=== PATIENT | male | born 1945 | race Caucasian/White ===

== ENCOUNTER 2016-07-01 08:37 | Inpatient (IN) | payer BC, OTHER ==
[2016-06-14 12:56] VITALS: BMI 22.0
--- NOTE | 2016-06-14 13:26 | PAT Medication Instructions ---
Service Date Jun 14, 2016. Current Home Medication List Cod Liver Oil (Cod Liver Oil), 1 CAPSULE PO QAM Gabapentin (Neurontin), 300 MG PO TID Glucosamine-Chondroitin (Osteo Bi-Flex Regular Str), 2 TABLETS PO BID Multiple Vitamins W/ Minerals (Centrum Silver Adult 50+), 1 TABLET PO QAM Nabumetone (Nabumetone), 750 MG PO BID Medication Instructions For Your Scheduled Surgery Nabumetone (Nabumetone), 750 MG PO BID (check with surgeon for instructions) - Hold the following medications starting 06/14/16: Glucosamine-Chondroitin (Osteo Bi-Flex Regular Str), 2 TABLETS PO BID Cod Liver Oil (Cod Liver Oil), 1 CAPSULE PO QAM - Hold the following medications the morning of surgery: Multiple Vitamins W/ Minerals (Centrum Silver Adult 50+), 1 TABLET PO QAM - Take the following medications the morning of surgery with a sip of water: Gabapentin (Neurontin), 300 MG PO TID - Take the following medications as scheduled the night before surgery: Gabapentin (Neurontin), 300 MG PO TID If you have any questions please call us at [phone] (Dariana Ren PA-C) or [phone] or [phone]
--- NOTE | 2016-06-14 13:54 | DIAGNOSTIC IMAGING REPORT ---
CHEST 2 VIEWS ROUTINE CLINICAL HISTORY: PAT preoperative evaluation COMPARISON STUDY: 06/15/2013 FINDINGS: The bones soft tissues and hemidiaphragms are normal. The cardiomediastinal silhouette is normal. The lungs are clear. The pulmonary vasculature is normal. IMPRESSION: Negative chest. Electronically signed by: Lev Scott M.D. 06/14/2016 1:52 PM Dictated Date/Time: 06/14/2016 1:41 PM
[2016-06-14 14:04] LABS: BASO ABS # 0.06 K/uL (0-0.2); COMPLETE YES; EOS % 4.4 %; HEMATOCRIT 39.5 % (42-52); IG% 0.5 %; LYMPH % 24.2 %; LYMPH ABS # 1.48 K/uL (1.2-3.4); MEAN CELL VOLUME 92.1 fL (80-100); MEAN CORPUSCULAR HEMOGLOBIN 31.5 pg (25-34); MEAN CORPUSCULAR HGB CONC 34.2 g/dl (32-36); MEAN PLATELET VOLUME 10.5 fL (7.4-10.4); MONO % 8.3 %; NEUT % 61.6 %; PLATELET COUNT 224 K/uL (130-400); RED BLOOD COUNT 4.29 M/uL (4.7-6.1); WHITE BLOOD COUNT 6.12 K/uL (4.8-10.8)
[2016-06-14 14:13] LABS: MANUAL MICROSCOPIC REQUIRED? NO; REVIEW REQ? NO; URINE APPEARANCE CLEAR (CLEAR); URINE BILIRUBIN NEG (NEG); URINE COLOR YELLOW; URINE NITRITE NEG (NEG); URINE PH 5.5 (4.5-7.5); URINE SPECIFIC GRAVITY 1.017 (1.000-1.030); UROBILINOGEN NEG (NEG)
[2016-06-14 14:34] LABS: BUN/CREATININE RATIO 18.4 (10-20); CALCIUM 9.1 mg/dl (8.5-10.1); CREATININE 0.95 mg/dl (0.60-1.40)
[2016-07-01] VITALS (9 sets, daily range): BP systolic 109–144; BP diastolic 63–82; PULSE 72–88; TEMP 36.4–36.8; O2SAT 98; Ht 175.3 cm; Wt 67.6 kg
[~2016-07-01] VITALS: Ht 175.3 cm; Wt 67.6 kg
[~2016-07-01 08:37] MED LIST: CEFAZOLIN 1000MG/55 ML D5W IV SCH; CODCAP PO; GABA-113 PO; GLUCTAB18 PO; LACTATED RINGER'S 1000ML 1,000 ML IV SCH; MULT-845 PO; NABU750T PO
--- NOTE | 2016-07-01 09:23 | History & Physical Bridge Note ---
H&P Re-Evaluation Bridge Note: I have examined the patient, reviewed the History & Physical and in the interval since the performance of the History & Physical I have noted the following changes of clinical significance: No changes noted
[2016-07-01] MEDS ORDERED: BUPIVACAINE/EPINEPHRINE 0.5% MPF 1:200,000 30 ML VIAL ONE (09:44)
[2016-07-01] MEDS ORDERED: BACITRACIN 50000 UNIT VIAL ONE (09:44)
[2016-07-01] MEDS ORDERED: SODIUM CHLORIDE 0.9% PF 50 ML VIAL ONE (09:44)
[2016-07-01] MEDS ORDERED: SODIUM CHLORIDE 0.9% INJ 10 ML VIAL ONE (09:45)
[2016-07-01] MEDS ORDERED: MIDAZOLAM HCL 1 MG/ML 2ML VIAL ONE (09:45)
[2016-07-01] MEDS ORDERED: HYDROmorphone INJ 2 MG/ML SYR/VIAL ONE (09:46)
[2016-07-01] MEDS ORDERED: FENTANYL CITRATE INJ 50 MCG/1 ML 2 ML VIAL ONE (09:46)
[2016-07-01] MEDS ORDERED: GLYCOPYRROLATE INJ 0.2 MG/ML VIAL ONE (09:47)
[2016-07-01] MEDS ORDERED: NEOSTIGMINE METHYLSULFATE 1 MG/ML 10ML VIAL ONE (09:47)
[2016-07-01] MEDS ORDERED: PROPOFOL IV EMULSION 10 MG/ML 20 ML VIAL IV ONE (09:47)
[2016-07-01] MEDS ORDERED: ROCURONIUM BROMIDE 10 MG/ML 5 ML VIAL ONE ×2 (09:47→10:27)
[2016-07-01] MEDS ORDERED: ONDANSETRON INJ 2 MG/ML 2 ML VIAL ONE ×2 (09:47→13:07)
[2016-07-01] MEDS ORDERED: DEXAMETHASONE SOD INJ 4 MG/ML VIAL ONE (09:47)
[2016-07-01] MEDS ORDERED: LIDOCAINE HCL 2% 2 ML VIAL (20MG/ML) ONE (09:47)
--- NOTE | 2016-07-01 09:47 | History and Physical ---
History & Physical Date & Time of Service: Jul 01, 2016 at 09:42 Chief Complaint: Lumbar Spinal Stenosis Primary Care Physician: Bernardino Flor M.D. History of Present Illness Source: patient Patient presents with back and right leg pain refractory to conservative measures. Presents for surgical procedure. Past Medical/Surgical History Medical Problems: (1) Lumbar stenosis with neurogenic claudication Status: Resolved (2) Mitral valve prolapse Status: Chronic (3) Pneumonia Status: Resolved (4) S/P hernia repair Status: Resolved Family History Cancer Social History Smoking Status: Former Smoker Smokeless Tobacco Use: No Alcohol Use: none Marital Status: Occupational Status: employed Immunizations History of Influenza Vaccine: Unknown History of Tetanus Vaccine?: Unknown History of Pneumococcal: Unknown History of Hepatitis B Vaccine: Unknown Multi-Drug Resistant Organisms History of MDRO: No Allergies Coded Allergies: No Known Drug Allergy (Verified Allergy, Unknown, NKDA, 07/01/16) Home Medications Scheduled Cod Liver Oil (Cod Liver Oil), 1 CAPSULE PO QAM Gabapentin (Neurontin), 300 MG PO TID Glucosamine-Chondroitin (Osteo Bi-Flex Regular Str), 2 TABLETS PO BID Multiple Vitamins W/ Minerals (Centrum Silver Adult 50+), 1 TABLET PO QAM Nabumetone (Nabumetone), 750 MG PO BID Physical Exam Vital Signs Date Time Temp Pulse Resp B/P Pulse Ox O2 Delivery O2 Flow Rate FiO2 07/01/16 09:15 36.4 72 18 144/82 98 Room Air 07/01/16 08:55 36.4 72 18 144/82 98 Room Air General Appearance: WD/WN Head: normocephalic Eyes: normal inspection ENT: normal ENT inspection Neck: supple Respiratory/Chest: chest non-tender Cardiovascular: regular rate, rhythm Abdomen/GI: non tender Back: normal inspection Diagnostics Diagnostic Radiology MRI sever stenosis L3-S1 with a spondylolesthesis L4-5. Impression Assessment and Plan Sever spinal stenosis refractory to conservative measures. Will perform a revision lumbar decompression and instrumented fusion L3-S1. Advanced Directives Existing Living Will: No Existing Power of Sql Application Developer: No
[2016-07-01] MEDS ORDERED: EpHEDrine SULFATE 50MG/5ML SYR ONE (10:52)
[2016-07-01] MEDS ORDERED: HYDROmorphone INJ 1 MG/ML SYR IV PRN ×2 (11:00→12:45)
[2016-07-01] MEDS ORDERED: ATROPINE SULFATE 0.1 MG/ML 5ML SYR IV PRN (11:00)
[2016-07-01] MEDS ORDERED: FENTANYL CITRATE INJ 50 MCG/1 ML 2 ML VIAL IV PRN (11:00)
[2016-07-01] MEDS ORDERED: ONDANSETRON INJ 2 MG/ML 2 ML VIAL IV PRN ×2 (11:00→12:45)
[2016-07-01] MEDS ORDERED: LABETALOL HCL IV 5 MG/ML 20ML IV PRN (11:00)
[2016-07-01] MEDS ORDERED: MEPERIDINE HCL 25 MG/ML CARP IV PRN (11:00)
[2016-07-01] MEDS ORDERED: EpHEDrine SULFATE INJ 50 MG/ML AMP IV PRN (11:00)
[2016-07-01] MEDS ORDERED: FLOSEAL HEMOSTATIC MATRIX 10ML TOP ONE (12:32)
[2016-07-01] MEDS ORDERED: SODIUM CHLORIDE 0.9% 1000ML 1,000 ML IV SCH (12:32)
--- NOTE | 2016-07-01 12:32 | [facility] Post Operative Brief Note ---
Immediate Operative Summary Operative Date Jul 01, 2016. Pre-Operative Diagnosis Spinal stenosis L3-S1, with spondylolesthesis L4-5 Post-Operative Diagnosis Same as preop Procedure(s) Performed L3-S1 Revision Lumbar Decompression/Laminectomy, L3-S1 Pedicle Screw Fixation, Placement of an Interbody Device L4-5, with use of Bone Morphogenetic Protein Application Surgeon Dr. aBh Radiation Safety Officer Surgeon(s) Blanca Cha PA-C Estimated Blood Loss 200 ml Findings stenosis/spondy Specimens None, as per surgeon
[2016-07-01] MEDS ORDERED: ACETAMINOPHEN IV 100 ML IV PRN (12:45)
[2016-07-01] MEDS ORDERED: DO NOT ADMINISTER PNEUMOCOCCAL VACCINE PRN ×2 (12:45)
[2016-07-01] MEDS ORDERED: ACETAMINOPHEN 500 MG TAB PO PRN (12:45)
[2016-07-01] MEDS ORDERED: PROMETHAZINE HCL INJ 12.5 MG in SODIUM CHLORIDE 0.9% 50ML 50 ML IV PRN (12:45)
[2016-07-01] MEDS ORDERED: HYDROmorphone HCL 0.5MG/ML 50 ML CASSETTE IV PRN (12:45)
[2016-07-01] MEDS ORDERED: ALUMINUM/MAGNESIUM SUSP 30 ML UDC PO PRN (12:45)
[2016-07-01] MEDS ORDERED: FAMOTIDINE 20 MG TAB PO PRN (12:45)
[2016-07-01] MEDS ORDERED: DO NOT ADMINISTER FLU VACCINE PRN ×3 (12:45)
[2016-07-01] MEDS ORDERED: hydrOXYzine HCL 25 MG TAB PO PRN (12:45)
[2016-07-01] MEDS ORDERED: METOCLOPRAMIDE HCL INJ 5 MG/ML 2 ML VIAL IV PRN (12:45)
[2016-07-01] MEDS ORDERED: BISACODYL 10 MG SUPP PR PRN (12:45)
[2016-07-01] MEDS ORDERED: NALOXONE HCL 0.4 MG/1 ML VIAL/CARP IV PRN ×2 (12:45)
[2016-07-01] MEDS ORDERED: LORAZEPAM 0.5 MG TAB PO PRN (12:45)
[2016-07-01] MEDS ORDERED: SOD PHOSPHATE/SOD BIPHOSPHATE ENEMA 132 ML BTL PR PRN (12:45)
[2016-07-01] MEDS ORDERED: LORAZEPAM INJ 0.5 MG in SYRINGE 0.75 ML IV PRN (12:45)
[2016-07-01] MEDS ORDERED: MAGNESIUM HYDROXIDE SUSP 30 ML UDC PO PRN (12:45)
[2016-07-01] MEDS ORDERED: HYDROmorphone HCL 0.5MG/ML 50 ML CASSETTE ONE (12:54)
--- NOTE | 2016-07-01 13:31 | OPERATIVE REPORT ---
DATE OF OPERATION: 07/01/2016 PREOPERATIVE DIAGNOSIS: Lumbar spinal stenosis, spondylolisthesis. POSTOPERATIVE DIAGNOSIS: Same. PROCEDURE PERFORMED: 1. Revision decompression, medial facetectomies and foraminotomy L3-4, L4-5, L5-S1. 2. Posterior spinal fusion L3-L4, L4-L5, L5-S1. 3. Placement posterior segmental instrumentation using Medicrea rods and screws L3-4, L4-5, L5-S1. 4. Interbody fusion L4-L5. 5. Placement of PEEK cage 11 x 22 mm at L4-L5. 6. Placement of locally harvested morcellized autograft in posterior gutters. 7. Placement of Infuse collagen sponge combined with Mastergraft in posterior gutters and Amaya bone graft in the interbody space. SURGEON: Dr. Royal Bah. CROSS ENTERPRISE INTEGRATOR: Jayden Cha PA-C. Due to the complex nature of the procedure, the entire surgery was performed with the surgical dental assistant of Jayden Cha PA-C. The grants and contracts assistant, under direct supervision, was involved in the actual performance of all aspects of the surgical procedure including hemostasis, tissue retraction and incision, instrument management, patient positioning, and wound closure. ANESTHESIA: General. DISPOSITION: The patient awakened and taken to PACU in stable condition. HISTORY OF PATIENT'S PROBLEMS: A 71-year-old male who presents with above-mentioned diagnosis. After failing an extensive course of nonoperative care, elected to undergo the above-mentioned procedure. Risks, benefits, pros, cons, and alternatives were outlined in detail preoperatively. PROCEDURE: The patient was met with preoperatively, case discussed and all questions were addressed. At that point the patient was taken back to operative suite and after undergoing successful general intubation by the department of anesthesia was placed in prone position on Fausto table atop Juan Antonio frame. All bony prominences were well padded and the eyes were inspected to ensure there was no external pressure placed upon them. At this point, lumbar spine was prepped and draped in normal sterile fashion. Sharp dissection with the assistance of Bovie cautery performed down to and exposing the remaining lamina and transverse processes of L3, L4, L5 and sacral ala bilaterally. I then performed a complete revision laminectomy at the 3-4, 4-5 levels on the right addressing severe lateral recess and foraminal disease. Pedicle screws then placed in L3, L4, L5 and S1 levels bilaterally with the assistance of fluoroscopy and through a transforaminal approach on the right, a complete discectomy of L4-L5 was performed, endplates curetted to subcortical bleeding bone and an 11 x 22 mm PEEK cage filled with Amaya bone grafting tapped into position. The rods were then compressed, locked into final position bilaterally and transverse processes of L3, L4, L5 and sacral ala burred to subcortical bone. Infuse collagen sponge combined with Mastergraft and locally harvested morselized autograft was placed in the posterior lateral gutters. A 7 flat LEO drain was inserted. Incision was closed with 1-0 Vicryl in the fascia, 2-0 Vicryl subcutaneously, 4-0 Monocryl for final skin closure. Steri-Strips and sterile dressing placed. The patient was awakened and taken to PACU in stable condition. Again, we did note significant scarring along the right lateral recesses and nerve roots at L4-L5. We obtained excellent complete decompression. I attest to the content of the Intraoperative Record and any orders documented therein. Any exceptio ns are noted below.
--- NOTE | 2016-07-01 13:38 | DIAGNOSTIC IMAGING REPORT ---
INTRAOPERATIVE FLUOROSCOPIC IMAGES OF THE LUMBAR SPINE CLINICAL HISTORY: L3-S1 DECOMPRESSION/FUSION/INTERBODY COMPARISON STUDY: Lumbar spine MRI January 21, 2013. Fluoroscopy time: 24 seconds. FINDINGS: 2 fluoroscopic images demonstrate L4-L5 discectomy with interbody spacer placement. There is grade I anterolisthesis of L4 on L5. There is a posterior decompression. Bilateral pedicle screws are noted at the L3, L4, L5 and S1 levels. IMPRESSION: Findings consistent with an L4-L5 discectomy and L3-S1 bilateral pedicle screw fusion Electronically signed by: Layo Mora M.D. 07/01/2016 1:37 PM Dictated Date/Time: 07/01/2016 1:35 PM
--- NOTE | 2016-07-01 14:07 | Anesthesiology Progress Note ---
Anesthesia Post Op Note Date & Time Jul 01, 2016 at 14:06 Vital Signs Pain Intensity: 0 Vital Signs Past 12 Hours Date Time Temp Pulse Resp B/P Pulse Ox O2 Delivery O2 Flow Rate FiO2 07/01/16 14:00 76 18 129/66 99 Mask 4 07/01/16 13:45 78 20 129/67 99 Mask 4 07/01/16 13:35 36.4 80 20 130/65 99 Mask 4 07/01/16 13:25 78 15 137/68 97 Mask 4 07/01/16 13:15 85 15 140/69 99 Mask 10 07/01/16 13:05 90 18 145/80 99 Mask 10 07/01/16 12:56 36.6 83 12 140/77 98 Mask 10 07/01/16 09:15 36.4 72 18 144/82 98 Room Air 07/01/16 08:55 36.4 72 18 144/82 98 Room Air Notes Mental Status: alert / awake / arousable, participated in evaluation Pt Amnestic to Procedure: Yes Nausea / Vomiting: adequately controlled Pain: adequately controlled Airway Patency, RR, SpO2: stable & adequate BP & HR: stable & adequate Hydration State: stable & adequate Anesthetic Complications: no major complications apparent
[2016-07-01] MEDS: GABAPENTIN 300 MG CAP PO SCH ×2 (16:00→20:26)
[2016-07-01] MEDS: LACTATED RINGER'S 1000ML 1,000 ML IV SCH ×2 (17:48→23:42)
[2016-07-01] MEDS: CEFAZOLIN IV 1,000 MG in DEXTROSE 5% 50ML 50 ML IV SCH (17:48)
[2016-07-01] MEDS: DEXAMETHASONE INJ 6 MG in SYRINGE 0 ML IV SCH (17:49)
[2016-07-01] MEDS: DOCUSATE SODIUM/SENNA 50/8.6MG TAB PO SCH (20:27)
[2016-07-02] VITALS (7 sets, daily range): BP systolic 117–136; BP diastolic 58–73; PULSE 75–96; TEMP 36.3–36.9; O2SAT 94–98
[2016-07-02] MEDS: CEFAZOLIN IV 1,000 MG in DEXTROSE 5% 50ML 50 ML IV SCH (01:32)
[2016-07-02] MEDS: DEXAMETHASONE INJ 6 MG in SYRINGE 0 ML IV SCH ×2 (01:32→10:13)
[2016-07-02] MEDS: LACTATED RINGER'S 1000ML 1,000 ML IV SCH ×3 (04:50→18:52)
[2016-07-02] MEDS ORDERED: DC PCA ONE (06:00)
[2016-07-02] MEDS: OXYCODONE HCL IR 5 MG TAB (IMMEDIATE RELEASE) PO PRN ×3 (06:07→18:28)
[2016-07-02 07:21] LABS: BASO % 0.1 %; BASO ABS # 0.01 K/uL (0-0.2); COMPLETE YES; HEMATOCRIT 35.8 % (42-52); IG% 0.4 %; LYMPH % 4.6 %; LYMPH ABS # 0.76 K/uL (1.2-3.4); MEAN CELL VOLUME 92.3 fL (80-100); MEAN CORPUSCULAR HEMOGLOBIN 30.9 pg (25-34); MEAN CORPUSCULAR HGB CONC 33.5 g/dl (32-36); MEAN PLATELET VOLUME 10.9 fL (7.4-10.4); MONO % 5.5 %; NEUT % 89.4 %; PLATELET COUNT 167 K/uL (130-400); RED BLOOD COUNT 3.88 M/uL (4.7-6.1); WHITE BLOOD COUNT 16.56 K/uL (4.8-10.8)
[2016-07-02 07:56] LABS: CALCIUM 8.9 mg/dl (8.5-10.1); CREATININE 0.82 mg/dl (0.60-1.40); POTASSIUM 4.5 mmol/L (3.5-5.1)
[2016-07-02] MEDS: GABAPENTIN 300 MG CAP PO SCH ×3 (09:54→20:48)
--- NOTE | 2016-07-02 10:14 | PROGRESS NOTE ---
DATE: 07/02/2016 DATE: 07/02/2016. SUBJECTIVE: Postop day 1. Back pain is controlled. Leg pain markedly improved. Vital signs stable. T-max 36.9. LEO drained 80 mL. Hematocrit this a.m. is 35.8. OBJECTIVE: On exam the patient is sitting up in bed, has good strength to testing, appears comfortable. ASSESSMENT: Status post revision decompression and fusion. PLAN: At this time, will initiate physical therapy, advance his bowel regimen and anticipate home early next week.
[2016-07-02] MEDS: DOCUSATE SODIUM/SENNA 50/8.6MG TAB PO SCH (22:00)
[2016-07-02] MEDS ORDERED: NURSING VERBAL MED ORDER ONE (23:30)
[2016-07-03] MEDS: POLYETHYLENE (MIRALAX) 17 GM PACK PO SCH ×3 (06:01→18:00)
[2016-07-03] MEDS: OXYCODONE HCL IR 5 MG TAB (IMMEDIATE RELEASE) PO PRN ×2 (06:35→13:23)
[2016-07-03 07:05] VITALS: BP 126/75; PULSE 81; TEMP 36.7; O2SAT 96
[2016-07-03] MEDS: GABAPENTIN 300 MG CAP PO SCH ×3 (08:42→21:03)
[2016-07-03] MEDS ORDERED: RXC5 PO (12:42)
--- NOTE | 2016-07-03 12:43 | Discharge Instructions ---
Discharge Instructions Admission Reason for Admission: Lumbar Spinal Stenosis Discharge Discharge Diagnosis / Problem: stenosis Discharge Goals Goal(s): Improve function Activity Recommendations Activity Limitations: per Instructions/Follow-up section . Instructions / Follow-Up Instructions / Follow-Up ACTIVITY RECOMMENDATIONS: SELF CARE INSTRUCTIONS AFTER THORACIC/LUMBAR FUSIONS 1. You may walk to your tolerance. It is good exercise for your legs and back. Expect some back and intermittent leg aches and pains. 2. You may perform "counter-top" level activities (make a sandwich, renuka with a project, etc.). 3. No bending or lifting of more than 10 pounds or back twisting of any nature (roll like a log when turning in bed). 4. You may ride in a car for 20-30 minutes at a time. No driving until after your first visit with your doctor. 5. Frequent changes of position and restricting sitting to 30 minutes at a time will help limit the amount of back spasms and stiffness you may experience. 6. You may discontinue the use of ambulatory aids (cane, crutches, etc.) once your strength and confidence allow. 7. You may french binder the shower and let water strike your incision when you arrive home at least once daily. Do not take a tub bath, sit in a hot tub or go into a swimming pool until after your first recheck in the office. SPECIAL CARE INSTRUCTIONS: VERY IMPORTANT TO READ AND REVIEW A. Your surgical incision has been closed with a cosmetic suture under the skin that will dissolve in about 6 weeks. In 14 days, you can use a pair of clean scissors and cut the suture that is left outside of the skin at the ends of your incision. 1. The small skin tapes can be removed 7 days after surgery if they have not fallen off by that point. 2. You may keep the wound open to air as much as possible to promote healing after post-op day number 5 unless told otherwise by your doctor. 3. If you think the wound looks like it is becoming infected (redness or worsening drainage) and/or you are experiencing fever, chill or worsening back pain and muscle spasms, contact the office so that we may evaluate you as soon as possible. B. Complications are uncommon, but please contact us if you have any signs or symptoms of: 1. wound infection (fever higher than 102.5 degrees F, redness, separation of wound, drainage, or increasing pain from the incision) 2. blood clots in legs (pain, swelling, redness and warmth in legs) 3. urinary tract infection (fever higher than 102.5 degrees F, burning upon urination or increased frequency of urination) 4. nerve problems (inability to walk on your toes or heels, numbness, loss of bowel or bladder control) 5. any other symptoms that concern you C. Please call the office at if you have any concerns or questions about your operation or recovery. D. No smoking! Smoking drastically decreases the chance of a solid fusion. E. Do not take any anti-inflammatory medications (Indocin, Advil, Motrin, Aspirin, Naprosyn, etc.) as these may inhibit the chance of a solid fusion. Tylenol is okay to take for pain. MANAGING PAIN AFTER SPINAL SURGERY 1. Narcotic medication is intended for short-term use and will be provided for surgical pain. Surgical pain usually lasts for a period of 4-6 weeks. Narcotic medication includes Percocet, Vicodin, Darvocet, Tylenol #3 or Lortab. 2. Longer-term pain is more appropriately treated with non-narcotic medication such as Tylenol ES. 3. Muscle spasm is not appropriately treated with narcotics. Muscle relaxers such as Soma, Flexeril or Skelaxin can be used along with Tylenol ES. 4. Remember that we all live with some "aches and pains". This is not unusual or uncommon after an injury or as we get older. a. Back pain is expected and may include muscle spasms for 4 to 6 weeks after surgery. The pain should gradually improve. If the pain worsens for no apparent reason, please contact the office. b. Intermittent leg pain may also be experienced and should not be concerned about unless it worsens for no apparent reason. If so, please contact the office. 5. We will provide appropriate medication within the normal guidelines of their prescribed use. We will also be very cautious and aware of potential abuse and extended duration of patients' medication needs. a. Pain medications are for your comfort and to assist with sleep and rest so that the tissue can heal. They are not provided in order to return to normal activity and should not be used through the day. To do so or worsening pain at night can result from ongoing tissue damage and development of tolerance to the prescribed medicine. 6. Please allow 2-3 days to process refills. Prescriptions will not be mailed but must be picked up at the office. FOLLOW UP VISIT: Keep your scheduled follow-up appointment. Any questions, please call the office at . Current Hospital Diet Patient's current hospital diet: Regular Diet Discharge Diet Recommended Diet: Regular Diet Procedures Procedures Performed: L3-S1 Revision Lumbar Decompression/Laminectomy, L3-S1 Pedicle Screw Fixation, Placement of an Interbody Device L4-5, with use of Bone Morphogenetic Protein Application and Amaya Pending Studies Studies pending at discharge: no Medical Emergencies . Who to Call and When: Medical Emergencies: If at any time you feel your situation is an emergency, please call 911 immediately. . Non-Emergent Contact Non-Emergency issues call your: Primary Care Provider . "Provider Documentation" section prepared by Royal Bah. VTE Core Measure Inpt VTE Proph given/why not?: Anjana Millan, ERIC's
--- NOTE | 2016-07-03 13:44 | PROGRESS NOTE ---
DATE: 07/03/2016 Subjective: Postop day #2. Back pain is controlled. Leg pain markedly improved. Vital signs stable. T-max 36.7. LEO drained 50 mL. Hematocrit this a.m. is 35.8. OBJECTIVE: On exam, the patient is sitting at bedside. Has good strength to testing. Appears comfortable. ASSESSMENT: Status post revision decompression and fusion. PLAN: At this time, continue physical therapy, advance his bowel regimen and anticipate possible home tomorrow with home health. The patient understands and agrees.
[2016-07-03 16:20] VITALS: BP 138/74; PULSE 94; TEMP 36.4; O2SAT 95
[2016-07-03] MEDS: DOCUSATE SODIUM/SENNA 50/8.6MG TAB PO SCH (21:03)
[2016-07-03] MEDS ORDERED: NURSING VERBAL MED ORDER ONE (23:15)
[2016-07-03 23:25] VITALS: BP 112/58; PULSE 97; TEMP 38.1; O2SAT 94
[2016-07-03 23:29] VITALS: TEMP 37
[2016-07-04 07:06] VITALS: BP 108/61; PULSE 88; TEMP 38; O2SAT 94
[2016-07-04] MEDS: GABAPENTIN 300 MG CAP PO SCH ×2 (08:11→13:40)
[2016-07-04] MEDS: OXYCODONE HCL IR 5 MG TAB (IMMEDIATE RELEASE) PO PRN (08:13)
--- NOTE | 2016-07-04 08:16 | Anesthesiology Progress Note ---
Anesthesia Post Op Note Date & Time Jul 04, 2016 at 08:16 Vital Signs Pain Intensity: 7.0 Vital Signs Past 12 Hours Date Time Temp Pulse Resp B/P Pulse Ox O2 Delivery O2 Flow Rate FiO2 07/04/16 07:06 38.0 88 17 108/61 94 Room Air 07/03/16 23:34 Room Air 07/03/16 23:29 37.0 07/03/16 23:25 38.1 97 16 112/58 94 Room Air Notes Mental Status: alert / awake / arousable, participated in evaluation Pt Amnestic to Procedure: Yes Nausea / Vomiting: adequately controlled Pain: adequately controlled Airway Patency, RR, SpO2: stable & adequate BP & HR: stable & adequate Hydration State: stable & adequate Anesthetic Complications: no major complications apparent
--- NOTE | 2016-07-04 11:19 | DISCHARGE SUMMARY ---
PRINCIPAL DIAGNOSIS: Spinal stenosis. HOSPITAL COURSE FOLLOWS: On July 01, the patient underwent lumbar decompression and fusion, tolerated this well and taken to the orthopedic floor postoperatively. Postop day #1, he was up and ambulatory, progressed to postop day #2. Pain well controlled, symptoms improved and subsequently on July 04, discharged home with home health. Discharge orders and instructions found on the chart for further review.
[2016-07-04 11:31] VITALS: BP 108/61; PULSE 88; TEMP 38; O2SAT 94
[2016-07-04 13:50] VITALS: TEMP 37.2
[2016-12-15] MEDS ORDERED: OMEG10007 PO (06:56)
[2016-12-15] MEDS ORDERED: NABU500T3 PO (06:56)
[2016-12-15] MEDS ORDERED: CHOL1000 PO (06:56)
== END 2016-07-04 14:09 | disposition home health service (06) | DRG 460 ==
LOC: ENRESERV → ENRESERVTM → ENRESERVDT → C.ACU 08:37 → C.MSN 09:00
PROVIDERS: ADMIT Orthopaedic Surgery Orthopaedic Surgery of the Spine; ATTEND Orthopaedic Surgery Orthopaedic Surgery of the Spine
PROC: 3E0U0GB Introduction of Recombinant Bone Morphogenetic Protein into Joints, Open Approach (ICD-10-PCS; principal; 2016-07-01 10:05)
PROC: 0SG3071 Fusion of Lumbosacral Joint with Autologous Tissue Substitute, Posterior Approach, Posterior Column, Open Approach (ICD-10-PCS; principal; 2016-07-01 10:05)
PROC: 0ST20ZZ Resection of Lumbar Vertebral Disc, Open Approach (ICD-10-PCS; principal; 2016-07-01 10:05)
PROC: 0SG00AJ Fusion of Lumbar Vertebral Joint with Interbody Fusion Device, Posterior Approach, Anterior Column, Open Approach (ICD-10-PCS; principal; 2016-07-01 10:05)
PROC: 0SG1071 Fusion of 2 or more Lumbar Vertebral Joints with Autologous Tissue Substitute, Posterior Approach, Posterior Column, Open Approach (ICD-10-PCS; principal; 2016-07-01 10:05)
DX: M48.06 Spinal stenosis, lumbar region (principal); M43.16 Spondylolisthesis, lumbar region; G62.9 Polyneuropathy, unspecified; N40.0 Benign prostatic hyperplasia without lower urinary tract symptoms; I34.1 Nonrheumatic mitral (valve) prolapse; I34.0 Nonrheumatic mitral (valve) insufficiency; Z87.891 Personal history of nicotine dependence; Z79.899 Other long term (current) drug therapy

== ENCOUNTER → 2016-11-28 | Outpatient (CLI) | payer BC ==
[~2016-11-28] MED LIST changes: +AMIO200T4 PO; +APIX1TAB3 PO; +ASPI81TA28 PO; -CEFAZOLIN 1000MG/55 ML D5W IV SCH; +CHOL1000 PO; +DILT120C67 PO; +DOCU100C31 PO; -LACTATED RINGER'S 1000ML 1,000 ML IV SCH; +NABU500T3 PO; +OMEG10007 PO; +OXYC-609 PO; +RXC5 PO
[2016-11-28 17:20] LABS: INR 1.1 (0.9-1.1); PARTIAL THROMBOPLASTIN RATIO 1.1; PROTHROMBIN TIME (PATIENT) 11.6 SECONDS (9.0-12.0)
[2016-11-28 17:22] LABS: BASO % 0.4 %; BASO ABS # 0.03 K/uL (0-0.2); COMPLETE YES; EOS % 2.8 %; HEMATOCRIT 40.2 % (42-52); IG% 0.3 %; LYMPH % 17.3 %; LYMPH ABS # 1.32 K/uL (1.2-3.4); MEAN CELL VOLUME 91.4 fL (80-100); MEAN CORPUSCULAR HGB CONC 32.8 g/dl (32-36); MEAN PLATELET VOLUME 10.5 fL (7.4-10.4); MONO % 12.2 %; PLATELET COUNT 181 K/uL (130-400); WHITE BLOOD COUNT 7.62 K/uL (4.8-10.8)
[2016-11-28 17:49] LABS: BLOOD UREA NITROGEN 22 mg/dl (7-18); BUN/CREATININE RATIO 19.7 (10-20); CALCIUM 9.5 mg/dl (8.5-10.1); CARBON DIOXIDE 28 mmol/L (21-32); CHLORIDE 105 mmol/L (98-107); GLUCOSE 149 mg/dl (70-99); POTASSIUM 3.6 mmol/L (3.5-5.1); SODIUM 139 mmol/L (136-145)
== END | disposition home or self-care (01) ==
LOC: C.LAB 16:46
PROVIDERS: ATTEND Physician Assistant Medical
DX: I34.0 Nonrheumatic mitral (valve) insufficiency (principal); I34.1 Nonrheumatic mitral (valve) prolapse; I51.7 Cardiomegaly

== ENCOUNTER → 2016-12-15 | Day surgery (SDC) | payer BC ==
[~2016-12-15] VITALS: Ht 175.3 cm; Wt 68.1 kg
[~2016-12-15] MED LIST changes: +FENTANYL CITRATE INJ 50 MCG/1 ML 2 ML VIAL ONE; +HEPARIN SOD (PORCINE) 1000 UNIT/ML 10 ML VIAL ONE; +MIDAZOLAM HCL 1 MG/ML 2ML VIAL ONE; +NITROGLYCERIN/D5W 100MCG/ML 20ML SYR ONE; +NiCARDipine HCL INJ 2.5 MG/ML 10 ML AMP ONE
[2016-12-15 07:14] VITALS: Ht 175.3 cm; Wt 68.1 kg
[2016-12-15 07:15] VITALS: BP 144/70; PULSE 65; TEMP 36.4; O2SAT 98
--- NOTE | 2016-12-15 08:29 | Procedure Note ---
Pre-Mod Sedation Assessment General Date of Moderate Sedation: Dec 15, 2016. Vital Signs: Vital Signs Past 12 Hours Date Time Temp Pulse Resp B/P (MAP) Pulse Ox O2 Delivery O2 Flow Rate FiO2 12/15/16 07:15 36.4 65 16 144/70 98 Room Air Review Cardiovascular: regular rate, rhythm, no edema, + systolic murmur Abdomen: normal bowel sounds, non tender Lungs: chest non-tender, lungs clear Airway Class: III Pre-Sedation Airway Assessment Oral Cavity: WNL Able to Visualize Vocal Cords: No Short Thick Neck: No Hx of Sleep Apnea: No Smoking Status: Former Smoker Mallampati Classification: Class III ASA Classification: Class III Procedure Planning Contraindications-for Mod Sed: None Yes Notes The planned sedation has been discussed with the patient and consent obtained. I have identified the patient, determined the appropriateness of sedation and have assessed the patient immediately prior to the procedure. All medicine(s) and interventions are by my order.
--- NOTE | 2016-12-15 09:12 | Procedure Note ---
Post-Mod Sedation Assessment General Date of Moderate Sedation Dec 15, 2016. Vital Signs: Vital Signs Past 12 Hours Date Time Temp Pulse Resp B/P (MAP) Pulse Ox O2 Delivery O2 Flow Rate FiO2 12/15/16 07:15 36.4 65 16 144/70 98 Room Air Review - Discharge Criteria Vital Signs Stable: Yes Alert/Oriented/Conversant: Yes Returned to Baseline Mental St: Yes Nausea Absent/Minimal: Yes Pain/Discomfort/Absent/Minimal: Yes Normal/Baseline Respirations: Yes Active Bleeding?: No Pt Received D/C Instructions: N/A Prescriptions Given: None Specific Proced. D/C Criteria Distal Pulses Present (Cardiac: Yes Groin site assessed-Card Cath: N/A Voided Prior To Discharge: N/A Discharged Patients Adult Escort/Transportation: Yes
--- NOTE | 2016-12-15 09:25 | Discharge Instructions ---
Discharge Instructions Procedure Procedure Date: Dec 15, 2016. Reason for Visit: Mitral valve Prolapse *Dr Castorena Doing*. Discharge Discharge Date: Dec 15, 2016. Discharge Diagnosis: Mitral Regurgitation Last Recorded Wt (Kilograms): 68.1 Anesthesia Post Anesthesia Instructions: If you have had General Anesthesia or IV Sedation: * Do not drive today. * Resume driving when surgeon permits. * Do not make important decisions or sign legal documents today. * Call surgeon for: 1. Temperature elevations greater than 101 degrees F. 2. Uncontrollable pain. 3. Excessive bleeding. 4. Persistent nausea and vomiting. 5. Medication intolerance (nausea, vomiting or rash). * For nausea and vomiting use only clear liquids such as: tea, soda, bouillon until nausea subsides, then gradually increase diet as tolerated. * If you have any concerns or questions, call your surgeon's office. If physician is unavailable and it is an emergency, call 911 or go to the nearest emergency room. Instructions Activity Recommendations: limitations as noted below Recommended Home Diet: resume previous diet Allergies: Coded Allergies: No Known Drug Allergy (Verified Allergy, Unknown, NKDA, 07/01/16) Follow Up Additional Instructions: ACTIVITY RECOMMENDATIONS: It is common to feel weak and fatigue for a few days. * Do not drive or operate any motorized equipment for the next 2 days. * Limit stair usage (2 or 3 trips a day only) for the next 2 days. * Do not lift anything heavier than 10 pounds for the next three days. * Do not engage in vigorous exercise or any sports for the next five days. * You may shower the day after your procedure, but do not immerse the area for three days. Cleanse the site gently with soap and water. SPECIAL CARE INSTRUCTIONS: * You may replace the pressure dressing or band-aid the morning after the procedure. * After your procedure, it is normal to have a small bruise or small lump at the site. Examine your site daily for any change in the bruise or lump, redness, swelling, drainage or numbness. Notify your doctor if any change. BLEEDING: * If there is a small amount of bleeding at the site, lie down and apply firm pressure with a clean cloth for ten minutes. When the bleeding stops, lie quietly keeping the procedure limb straight for six hours. Notify your doctor as soon as possible. * If the bleeding does not stop after ten minutes or if there is a large amount of bleeding or spurting, call 911 immediately. Continue to lie down and hold firm pressure until help arrives. SKIN IRRITATION: * You may experience some redness and/or swelling in the area where radiation was administered. If any skin irritation occurs, please contact your family physician. FOLLOW UP VISIT: Keep any scheduled doctor appointments. Follow-up with: [facility] Recommendations: Call your doctor if: * Temperature above 101 degrees * Pain not relieved by pain medicine ordered * There is increased drainage or redness from any incision * You have any unanswered questions or concerns. Your Doctors Instructions noted above were prepared by provider Sonido Castorena. Patient Signature Section: Patient Instructions Signature Page Carlos Lord Patient (or Guardian) Signature/Date: I have read and understand the instructions given to me by my caregivers. Caregiver/RN/Doctor Signature/Date: The above-named patient and/or guardian has received patient instructions on this date. + Original Patient Signature Page (only) stays with chart. Please make copy for patient.
--- NOTE | 2016-12-15 09:31 | Cardiac Catheterization ---
Procedure Note Procedure Date Dec 15, 2016. Pre-Procedure Diagnosis Valvular Disease AUC Score 7 Post-Procedure Diagnosis Normal Coronary Arteries, Normal Intracardiac Pressures Procedure(s) Performed Coronary Angiography, Left Heart Cath, Right Heart Cath Locksmith Raffaele Ash Kier Boiler(s) Sally Estimated Blood Loss 15 Medication(s) Fentanyl, Heparin, Nitroglycerin, Versed, Lidocaine 1% Summary of Findings Indication: Preoperative evaluation prior to MV repair for Severe MR Access: 5Fr Right Radial Artery; 6Fr Slender Right antecubital vein Catheters: [place], JR4, 6Fr [place] Findings: LM - Angiographically normal LAD - Angiographically normal Circumflex - Angiographically normal RCA - Dominant, large vessel, angiographically normal RA 3 RV 35/7 PA 32/5 (18) PCW 10; V wave 20 LVEDP 10 PaSat 64 AoSat 98 Josh CO/CI 3.7/2.0 Thermo CO/CI 4.4/2.4 Arterial Closure: TR Band Summary: 1. Normal coronary arteries 2. Normal intracardiac filling pressure. Normal pulmonary artery pressures. Preserved cardiac output. Recommendations: Follow-up with [facility] Cardiac surgery for mitral valve repair Hemodynamics Rest Ao: 108/55/77 Final Ao: 107/43/73 LV: 112/10 Recommendations valve replacement Specimens None Radiation Exposure (mGy) 656 Contrast (mls) 45 Fluids (cc crystalloids) 98 Drains None Anesthesia Moderate Procedural Complication(s) None Disposition Recovery Room / PACU ACC Data Cardiac Status Clinical evaluation leading to the procedure CAD Presntation: Sx unlikely to be ischemic Anginal Classification: No symptoms Heart Failure: Yes, NYHA Class: CCS II Cardiogenic Shock w/in 24Hrs: No Imaging studies past 6 months: Yes Stress studies past 6 months: No Stress Echocardiogram: No Stress Testing w/SPECT MPI: No Cardiac CTA: No Coronary Anatomy Dominant: Right Left Main (% Stenosis): Normal LAD (% Stenosis): Normal Circumflex (% Stenosis): Normal RCA (% Stenosis): Normal Diagnostic Physician's Name: Rush Castorena MD Status: Elective Closure Device Percutaneous Entry Location: Radial Closure Device: Radial Band Recommendations: valve replacement Intraprocedure Events Significant Dissection: No Perforation: No
[2016-12-15 11:45] VITALS: BP 121/63; PULSE 63; O2SAT 95
[2016-12-15 11:56] LABS: ISTAT ARTERIAL BLOOD GAS HCO3 26 meq/L (19-24); ISTAT ARTERIAL BLOOD GAS PCO2 34 mmHg (35-46); ISTAT ARTERIAL BLOOD GAS PO2 100 mmHg (80-95); ISTAT ARTERIAL BLOOD GAS pH 7.49 (7.35-7.45); ISTAT CARBON DIOXIDE 26 mEq/l (24-31)
[2016-12-15 11:57] LABS: ISTAT ARTERIAL BLOOD GAS HCO3 28 meq/L (19-24); ISTAT ARTERIAL BLOOD GAS PCO2 43 mmHg (35-46); ISTAT ARTERIAL BLOOD GAS PO2 33 mmHg (80-95); ISTAT ARTERIAL BLOOD GAS pH 7.42 (7.35-7.45); ISTAT CARBON DIOXIDE 29 mEq/l (24-31)
== END | disposition home or self-care (01) ==
LOC: C.CATH 06:34
PROVIDERS: ATTEND Internal Medicine Interventional Cardiology
DX: I34.1 Nonrheumatic mitral (valve) prolapse (principal); I34.0 Nonrheumatic mitral (valve) insufficiency; I51.7 Cardiomegaly; M17.10 Unilateral primary osteoarthritis, unspecified knee; M19.90 Unspecified osteoarthritis, unspecified site; Z87.81 Personal history of (healed) traumatic fracture; Z80.52 Family history of malignant neoplasm of bladder; Z87.891 Personal history of nicotine dependence

== ENCOUNTER → 2016-12-28 | Outpatient (CLI) | payer BC ==
[2016-12-28] VITALS (8 sets, daily range): BP systolic 110–140; BP diastolic 52–69; PULSE 55–74; TEMP 36.8; O2SAT 93–99; Ht 175.3 cm; Wt 66.0 kg
[~2016-12-28] VITALS: Ht 175.3 cm; Wt 66.0 kg
[~2016-12-28] MED LIST changes: -CODCAP PO; -HEPARIN SOD (PORCINE) 1000 UNIT/ML 10 ML VIAL ONE; -NITROGLYCERIN/D5W 100MCG/ML 20ML SYR ONE; -NiCARDipine HCL INJ 2.5 MG/ML 10 ML AMP ONE
--- NOTE | 2016-12-28 07:36 | Procedure Note ---
Pre-Mod Sedation Assessment General Date of Moderate Sedation: Dec 28, 2016. Review Cardiovascular: regular rate, rhythm, no edema Abdomen: normal bowel sounds, non tender Lungs: chest non-tender, lungs clear Airway Class: II Pre-Sedation Airway Assessment Oral Cavity: WNL Able to Visualize Vocal Cords: No Short Thick Neck: No Hx of Sleep Apnea: No Smoking Status: Former Smoker Mallampati Classification: Class II ASA Classification: Class II Procedure Planning Contraindications-for Mod Sed: None Yes Notes The planned sedation has been discussed with the patient and consent obtained. I have identified the patient, determined the appropriateness of sedation and have assessed the patient immediately prior to the procedure. All medicine(s) and interventions are by my order.
--- NOTE | 2016-12-28 08:36 | Procedure Note ---
Post-Mod Sedation Assessment General Date of Moderate Sedation Dec 28, 2016. Review - Discharge Criteria Vital Signs Stable: Yes Alert/Oriented/Conversant: Yes Returned to Baseline Mental St: Yes Nausea Absent/Minimal: Yes Pain/Discomfort/Absent/Minimal: Yes Normal/Baseline Respirations: Yes Active Bleeding?: No Pt Received D/C Instructions: N/A Prescriptions Given: None Specific Proced. D/C Criteria Distal Pulses Present (Cardiac: Yes Groin site assessed-Card Cath: N/A Voided Prior To Discharge: N/A Discharged Patients Adult Escort/Transportation: Yes
--- NOTE | 2016-12-28 08:40 | Discharge Instructions ---
Discharge Instructions Procedure Procedure Date: Dec 28, 2016. Reason for Visit: Mitral Valve Prolapse...Castorena To Do. Discharge Discharge Date: Dec 28, 2016. Discharge Diagnosis: Mitral regurgitation Last Recorded Wt (Kilograms): 66 Anesthesia Post Anesthesia Instructions: If you have had General Anesthesia or IV Sedation: * Do not drive today. * Can resume driving tomorrow. * Do not make important decisions or sign legal documents today. * Call surgeon for: 1. Temperature elevations greater than 101 degrees F. 2. Uncontrollable pain. 3. Excessive bleeding. 4. Persistent nausea and vomiting. 5. Medication intolerance (nausea, vomiting or rash). * For nausea and vomiting use only clear liquids such as: tea, soda, bouillon until nausea subsides, then gradually increase diet as tolerated. * If you have any concerns or questions, call your surgeon's office. If physician is unavailable and it is an emergency, call 911 or go to the nearest emergency room. Instructions Activity Recommendations: resume regular activity Recommended Home Diet: resume previous diet Allergies: Coded Allergies: No Known Drug Allergy (Verified Allergy, Unknown, NKDA, 07/01/16) Follow Up Follow-up with: [facility] cardiac surgery as scheduled. Jennifer Abraham Recommendations: Call your doctor if: * Temperature above 101 degrees * Pain not relieved by pain medicine ordered * There is increased drainage or redness from any incision * You have any unanswered questions or concerns. Your Doctors Instructions noted above were prepared by provider Sonido Castorena. Patient Signature Section: Patient Instructions Signature Page Carlos Lord Patient (or Guardian) Signature/Date: I have read and understand the instructions given to me by my caregivers. Caregiver/RN/Doctor Signature/Date: The above-named patient and/or guardian has received patient instructions on this date. + Original Patient Signature Page (only) stays with chart. Please make copy for patient.
--- NOTE | 2016-12-29 19:40 | TEE ---
*NOTICE TO RECEIVING [employer] This information is strictly Confidential and protected under [place] law. [place] law prohibits you from making any further disclosure of this information unless further disclosure is expressly permitted by the written consent of the person to whom it pertains or is authorized by law. A general authorization for the release of medical or other information is not sufficient for this purpose. Hospital accepts no responsibility if the information is made available to any other person, INCLUDING THE PATIENT. Interpretation Summary * Conclusions -- * 1. Normal LV size and function. LVEF 60-65%. No regional wall motion abnormalities. * 2. Normal RV size and function. * 3. Severe mitral valve prolapse/partial flail leaflet (P1/P2 segment). * 4. Severe eccentric mitral regurgitation with systolic flow reversal in right lower pulmonary vein. * 5. No LA appendage thrombus. * 6. No significant aortic pathology. Procedure Details * PROBE #3 was adminstered for procedure. PROBE IN: 0805 PROBE OUT: 0827 * The study was performed in Cardiopulmonary Department. * Time out was conducted by the physician, nurse, and library circulation technician with positive identification of patient and procedure. * Informed consent for Transesophageal Echocardiogram was obtained prior to the procedure. * An intravenous line was placed. A topical anesthetic agent was used for oropharangeal anesthesia. A bite block was inserted. * The patient's vital signs, including blood pressure, heart rate, pulse oximetry and cardiac rhythm were monitored throughout the procedure . * Fentanyl 150 mcg was administered for procedural sedation. * Midazolam 3 mg administered for sedation. * The posterior oropharynx was anesthetized using a topical anesthetic spray. A bite guard was inserted. * The usual views were obtained; basal, mid-esophageal, transgastric and aortic views. * The patient tolerated the procedure well without evidence of orophangeal or esophageal trauma. * A 2D transesophageal echocardiogram with spectral and color flow Doppler was performed. * A 2D transesophageal echocardiogram with Doppler and color flow Doppler was performed. Left Ventricle * The left ventricle is grossly normal size. * There is normal left ventricular wall thickness. * Ejection Fraction = 60-65%. * No regional wall motion abnormalities noted. Right Ventricle * The right ventricular systolic function is normal. Atria * No thrombus is detected in the left atrial appendage. * The right atrium is mildly dilated. * No ASD detected; PFO is not assessed. Mitral Valve * Flail or severe prolapse of the mitral posterior leaflet. * The mitral regurgitant jet is eccentrically directed. * There is severe mitral regurgitation. * Apparent flail of P1/P2 segments. Systolic flow reversal in right lower pulmonary vein. Tricuspid Valve * The tricuspid valve is not well visualized, but is grossly normal. * There is no tricuspid stenosis. * There is trace tricuspid regurgitation. Aortic Valve * The aortic valve is normal in structure and function. * The aortic valve is trileaflet. * No hemodynamically significant valvular aortic stenosis. * There is no significant aortic regurgitation. Pulmonic Valve * The pulmonic valve is not well seen, but is grossly normal. * There is no pulmonic valvular stenosis. * There is no significant pulmonary regurgitation. Great Vessels * The aortic root and proximal ascending aorta are normal sized. * No obvious dissection could be visualized. Pericardium * There is no pericardial effusion. Right Ventricle * The right ventricular wall motion is normal.
== END | disposition home or self-care (01) ==
LOC: C.CPL 07:01
PROVIDERS: ATTEND Internal Medicine Interventional Cardiology
DX: I34.0 Nonrheumatic mitral (valve) insufficiency (principal); I34.1 Nonrheumatic mitral (valve) prolapse

== ENCOUNTER → 2017-01-31 | Outpatient (CLI) | payer BC ==
[~2017-01-31] MED LIST changes: -CHOL1000 PO; -FENTANYL CITRATE INJ 50 MCG/1 ML 2 ML VIAL ONE; -MIDAZOLAM HCL 1 MG/ML 2ML VIAL ONE; -NABU500T3 PO; -RXC5 PO
--- NOTE | 2017-01-31 13:03 | DIAGNOSTIC IMAGING REPORT ---
RIGHT FOOT MIN 3 VIEWS ROUTINE CLINICAL HISTORY: 72 years-old Male presenting with RT FOOT PAIN Right. TECHNIQUE: Frontal, oblique, and lateral views of the right foot were obtained. COMPARISON: None. FINDINGS: Accessory navicular noted. Minimal degenerative change suggested at the first metatarsophalangeal joint. No soft tissue calcification. No erosions. Bone spur noted at the inferior calcaneus. No acute fracture or malalignment. Regional soft tissues within normal limits. Atherosclerosis. IMPRESSION: No acute osseous injury. Minimal degenerative changes at the first MTP suggested. Enthesophyte at the origin of the plantar fascia. Electronically signed by: Collin Morris M.D. 01/31/2017 1:02 PM Dictated Date/Time: 01/31/2017 1:01 PM
== END | disposition home or self-care (01) ==
LOC: C.RAD1850 12:24
PROVIDERS: ATTEND Family Medicine
DX: M79.671 Pain in right foot (principal)

== ENCOUNTER 2017-02-16 20:51 | Emergency (ER) | payer BC ==
[~2017-02-16] VITALS: Ht 175.3 cm; Wt 67.9 kg
[~2017-02-16 20:51] MED LIST changes: -AMIO200T4 PO; -APIX1TAB3 PO; -ASPI81TA28 PO; -DILT120C67 PO; -DOCU100C31 PO; -OXYC-609 PO
[2017-02-16 20:54] VITALS: TEMP 37.2; Ht 175.3 cm; Wt 67.9 kg
[2017-02-16] MEDS ORDERED: OXYC-609 PO (21:37)
[2017-02-16] MEDS ORDERED: APIX1TAB3 PO (21:37)
[2017-02-16] MEDS ORDERED: DOCU100C31 PO (21:37)
[2017-02-16] MEDS ORDERED: DILT120C67 PO (21:37)
[2017-02-16] MEDS ORDERED: AMIO200T4 PO (21:37)
[2017-02-16] MEDS ORDERED: ASPI81TA28 PO (21:37)
--- NOTE | 2017-02-16 22:12 | EMERGENCY ROOM VISIT NOTE ---
History Report prepared by Deangelo: Skye Skaggs Under the Supervision of: Dr. Naida Hobbs D.O. First contact with patient: 21:39 Chief Complaint: RESPIRATORY PROBLEMS Stated Complaint: SHORTNESS OF BREATH History of Present Illness The patient is a 72 year old male who presents to the Emergency Room with complaints of shortness of breath beginning this afternoon at 1600. The patient reports that he went to the chiropractor this morning, and that he began to get short of breath this afternoon. He states by the time they arrived here the symptoms resolved. He states that 5 weeks ago he had a mitral valve put in, and that this shortness of breath feels similar to how he felt when he had his surgery. The patient also reports having a productive cough for the last 5 weeks. He reports having the chills, but denies having fevers and urinary symptoms. He states that he has recently had shaking in his hands since the surgery. Per his , the patient has been fatigued and has had a loss of appetite. He states that 2 weeks ago he had an ultrasound done for a swollen right foot and he was unable to ambulate. He reports that this pain is gone now. The patient states that he does not drink enough water and that he is not well hydrated. He reports that he takes Eliquis twice a day, 81 mg of aspirin, and amiodarone. Denies any recent change in activity. States he feels as though he is slowly getting better and states he has no trouble breathing getting around every day. Source of History: patient, spouse/significant other () Onset: this afternoon at 1600 Position: other (global) Quality: other (shortness of breath ) Associated Symptoms: + chills, + cough, + fatigue, + weakness (shaky hands) , No fevers, No urinary symptoms Review of Systems See HPI for pertinent positives & negatives. A total of 10 systems reviewed and were otherwise negative. Past Medical & Surgical Medical Problems: (1) Lower abdominal pain (2) Lumbar stenosis with neurogenic claudication (3) Mitral valve prolapse (4) Pneumonia (5) S/P hernia repair Family History Cancer Social History Smoking Status: Former Smoker Alcohol Use: none Marital Status: Housing Status: lives with significant other Occupation Status: employed Current/Historical Medications Scheduled Amiodarone Hcl (Cordarone), 200 MG PO DAILY Apixaban (Eliquis), 5 MG PO BID Aspirin (Aspirin Ec), 81 MG PO DAILY Diltiazem Hcl Extended Release (Diltiazem Hcl Er), 120 MG PO DAILY Docusate Sodium (Docusate Sodium), 100 MG PO BID Gabapentin (Neurontin), 300 MG PO BID Oxycodone HCl (Oxycodone HCl), 5 MG PO QAM Scheduled PRN Glucosamine-Chondroitin (Osteo Bi-Flex Regular Str), 2 TABLETS PO BID PRN for Joint Pain Miscellaneous Medications Nabumetone (Nabumetone), 750 MG PO Allergies Coded Allergies: No Known Drug Allergy (Verified Allergy, Unknown, NKDA, 07/01/16) Physical Exam Vital Signs Date Time Temp Pulse Resp B/P (MAP) Pulse Ox O2 Delivery O2 Flow Rate FiO2 02/17/17 01:10 74 21 101/61 95 02/17/17 00:01 108/64 02/17/17 00:00 76 21 91 02/16/17 23:43 95 Room Air 02/16/17 23:31 132/73 02/16/17 23:30 77 19 95 02/16/17 23:08 76 02/16/17 23:01 107/69 02/16/17 22:55 95 Room Air 02/16/17 22:54 80 28 130/66 93 Room Air 02/16/17 22:43 74 16 119/66 95 Room Air 02/16/17 21:15 95 Room Air 02/16/17 20:54 37.2 69 18 120/71 95 Room Air Physical Exam GENERAL: alert, well appearing, well nourished, no distress, non-toxic EYE EXAM: normal conjunctiva, PERRL and EOM's grossly intact OROPHARYNX: no exudate, no erythema, lips, buccal mucosa, and tongue normal and mucous membranes are moist NECK: supple, no nuchal rigidity, no adenopathy, non-tender LUNGS: Clear to auscultation. Normal chest wall mechanics HEART: no murmurs, S1 normal and S2 normal ABDOMEN: abdomen soft, non-tender, normo-active bowel sounds, no masses, no rebound or guarding. Huge vertical midline incision consistent with sternotomy. BACK: Back is symmetrical on inspection and there is no deformity, no midline tenderness, no CVA tenderness. SKIN: no rashes and no bruising UPPER EXTREMITIES: upper extremities are grossly normal. LOWER EXTREMITIES: No pitting edema. NEURO EXAM: Normal sensorium, cranial nerves II-XII [grossly] intact, normal speech, no [gross] weakness of arms, no [gross] weakness of legs. [No drift. Finger to nose intact. Gross sensation intact.] Medical Decision & Procedures ER Provider Diagnostic Interpretation: Radiology results have been interpreted by the radiologist and reviewed by me. CHEST 2 VIEWS ROUTINE HISTORY: Short of breath. COMPARISON: Chest 06/14/2016. FINDINGS: The heart is mildly enlarged. There are poststernotomy changes. No pneumothorax. No evidence for pulmonary edema. Small left pleural effusion. Left basilar densities. IMPRESSION: 1. Small left pleural effusion. 2. Mild cardiomegaly, unchanged. 3. Left basilar densities are nonspecific but favor atelectasis from the pleural effusion. Electronically signed by: Mauricio Isbell M.D. 02/16/2017 10:59 PM Dictated Date/Time: 02/16/2017 10:57 PM Laboratory Results 02/16/17 22:30 Red Blood Count 3.79, Mean Corpuscular Volume 88.1, Mean Corpuscular Hemoglobin 28.2, Mean Corpuscular Hemoglobin Concent 32.0, Mean Platelet Volume 9.4, Neutrophils (%) (Auto) 76.8, Lymphocytes (%) (Auto) 6.7, Monocytes (%) (Auto) 15.6, Eosinophils (%) (Auto) 0.3, Basophils (%) (Auto) 0.3, Neutrophils # (Auto ) 8.59, Lymphocytes # (Auto) 0.75, Monocytes # (Auto) 1.74, Eosinophils # (Auto ) 0.03, Basophils # (Auto) 0.03 02/16/17 22:30 Test 02/16/17 22:30 02/17/17 00:31 White Blood Count 11.17 K/uL (4.8-10.8) Red Blood Count 3.79 M/uL (4.7-6.1) Hemoglobin 10.7 g/dL (14.0-18.0) Hematocrit 33.4 % (42-52) Mean Corpuscular Volume 88.1 fL (80-100) Mean Corpuscular Hemoglobin 28.2 pg (25-34) Mean Corpuscular Hemoglobin Concent 32.0 g/dl (32-36) Platelet Count 271 K/uL (130-400) Mean Platelet Volume 9.4 fL (7.4-10.4) Neutrophils (%) (Auto) 76.8 % Lymphocytes (%) (Auto) 6.7 % Monocytes (%) (Auto) 15.6 % Eosinophils (%) (Auto) 0.3 % Basophils (%) (Auto) 0.3 % Neutrophils # (Auto) 8.59 K/uL (1.4-6.5) Lymphocytes # (Auto) 0.75 K/uL (1.2-3.4) Monocytes # (Auto) 1.74 K/uL (0.11-0.59) Eosinophils # (Auto) 0.03 K/uL (0-0.5) Basophils # (Auto) 0.03 K/uL (0-0.2) RDW Standard Deviation 48.9 fL (36.4-46.3) RDW Coefficient of Variation 15.1 % (11.5-14.5) Immature Granulocyte % (Auto) 0.3 % Immature Granulocyte # (Auto) 0.03 K/uL (0.00-0.02) Prothrombin Time 14.3 SECONDS (9.0-12.0) Prothromb Time International Ratio 1.3 (0.9-1.1) Anion Gap 6.0 mmol/L (3-11) Est Creatinine Clear Calc Drug Dose 76.6 ml/min Estimated GFR () 101.6 Estimated GFR (Non- 87.7 BUN/Creatinine Ratio 15.5 (10-20) Calcium Level 9.2 mg/dl (8.5-10.1) Magnesium Level 2.0 mg/dl (1.8-2.4) Total Bilirubin 0.7 mg/dl (0.2-1) Aspartate Amino Transf (AST/SGOT) 14 U/L (15-37) Alanine Aminotransferase (ALT/SGPT) 14 U/L (12-78) Alkaline Phosphatase 144 U/L (45-117) Troponin I < 0.015 ng/ml (0-0.045) Total Protein 7.4 gm/dl (6.4-8.2) Albumin 3.2 gm/dl (3.4-5.0) Globulin 4.2 gm/dl (2.5-4.0) Albumin/Globulin Ratio 0.8 (0.9-2) Bedside Troponin I < 0.030 ng/ml (0-0.045) Laboratory results per my review. ECG Indication: SOB/dyspnea Rate (beats per minute): 81 Rhythm: sinus rhythm Findings: no acute ischemic change, other (normal axis, normal intervals, baseline artifact noted) ED Course 2300: The patient was evaluated in room B6. A complete history and physical exam was performed. 2334: The patient reports feeling better and that he has not had recurrent symptoms. We will do an ambulatory pulse oximetry and a repeat troponin. 0030: I checked on the patient and he is doing well. 0100: Upon reevaluation, the patient is feeling better. I discussed the findings and the treatment plan with the patient. He verbalizes agreement and understanding. He was discharged home. Medical Decision Differential diagnosis: Etiologies such as infections, reactive airway disease, pneumonia, pneumothorax , COPD, CHF, cardiac ischemia, pulmonary embolism, musculoskeletal, gastrointestinal, as well as others were entertained. Pt well appearing here and sx resolved by the time of my evaluation. VS stable , no hypoxia. Pt ambulated with no increased WOB and no hypoxia. Labs reassuring. CXR with no acute changes, post op changes noted. No recurrent sx while here. Doubt pe given eliquis daily. No evidence of tamponade. Doubt dissection. Doubt acute valve failure. Doubt perf, occult gi bleed. Pt with intermittent soreness yet since the surgery, I feel this is consistent with his type of surgery and he reports slow improvement. Two trops negative here with second one greater than 8 hrs after onset of symptoms. Discussed close f/u with PCP and cards, discussed sx to watch/return for, he verbalized understanding and was agreeable with plan. Medication Reconcilliation Current Medication List: was personally reviewed by me Blood Pressure Screening Patient's blood pressure: Normal blood pressure Impression Primary Impression: Dyspnea Additional Impression: S/P mitral valve replacement Scribe Attestation The scribe's documentation has been prepared under my direction and personally reviewed by me in its entirety. I confirm that the note above accurately reflects all work, treatment, procedures, and medical decision making performed by me. Departure Information Dispostion Home / Self-Care Referrals No Doctor, Assigned (PCP) Forms HOME CARE DOCUMENTATION FORM, IMPORTANT VISIT INFORMATION, WORK / SCHOOL INSTRUCTIONS Patient Instructions My [facility] Additional Instructions Please call your family doctor and ecologist technician tomorrow to discuss with them what happened tonight. Please continue your medications as prescribed. If you have any recurrent trouble breathing, develop chest pain, back pain, vomiting, fevers, notice blood in your sputum, develop redness/drainage from around your incision, or you have any other new or concerning symptoms, please return to the emergency room. Problem Qualifiers Primary Impression: Dyspnea Dyspnea type: shortness of breath Qualified Codes: R06.02 - Shortness of breath
[2017-02-16 22:55] VITALS: O2SAT 95
[2017-02-16 22:57] LABS: BASO % 0.3 %; BASO ABS # 0.03 K/uL (0-0.2); COMPLETE YES; EOS % 0.3 %; HEMATOCRIT 33.4 % (42-52); IG% 0.3 %; LYMPH % 6.7 %; LYMPH ABS # 0.75 K/uL (1.2-3.4); MEAN CELL VOLUME 88.1 fL (80-100); MEAN CORPUSCULAR HEMOGLOBIN 28.2 pg (25-34); MEAN PLATELET VOLUME 9.4 fL (7.4-10.4); MONO % 15.6 %; NEUT % 76.8 %; PLATELET COUNT 271 K/uL (130-400); RED BLOOD COUNT 3.79 M/uL (4.7-6.1); WHITE BLOOD COUNT 11.17 K/uL (4.8-10.8)
--- NOTE | 2017-02-16 23:00 | DIAGNOSTIC IMAGING REPORT ---
CHEST 2 VIEWS ROUTINE HISTORY: Short of breath. COMPARISON: Chest 06/14/2016. FINDINGS: The heart is mildly enlarged. There are poststernotomy changes. No pneumothorax. No evidence for pulmonary edema. Small left pleural effusion. Left basilar densities. IMPRESSION: 1. Small left pleural effusion. 2. Mild cardiomegaly, unchanged. 3. Left basilar densities are nonspecific but favor atelectasis from the pleural effusion. Electronically signed by: Mauricio Isbell M.D. 02/16/2017 10:59 PM Dictated Date/Time: 02/16/2017 10:57 PM
[2017-02-16 23:05] LABS: INR 1.3 (0.9-1.1); PROTHROMBIN TIME (PATIENT) 14.3 SECONDS (9.0-12.0)
[2017-02-16 23:15] LABS: ALT/SGPT 14 U/L (12-78); BLOOD UREA NITROGEN 13 mg/dl (7-18); BUN/CREATININE RATIO 15.5 (10-20); CALCIUM 9.2 mg/dl (8.5-10.1); CARBON DIOXIDE 28 mmol/L (21-32); CHLORIDE 102 mmol/L (98-107); CREATININE 0.85 mg/dl (0.60-1.40); GLUCOSE 124 mg/dl (70-99); POTASSIUM 4.2 mmol/L (3.5-5.1); SODIUM 136 mmol/L (136-145)
[2017-02-16 23:20] LABS: ALB/GLOB RATIO 0.8 (0.9-2); ALKALINE PHOSPHATASE 144 U/L (45-117); AST/SGOT 14 U/L (15-37)
[2017-02-17 01:10] VITALS: BP 101/61; PULSE 74; O2SAT 95
== END 2017-02-17 01:10 | disposition home or self-care (01) ==
LOC: C.EDB 20:53
DX: R06.02 Shortness of breath (principal); Z95.2 Presence of prosthetic heart valve; Z79.01 Long term (current) use of anticoagulants; Z87.01 Personal history of pneumonia (recurrent); Z80.9 Family history of malignant neoplasm, unspecified; Z87.891 Personal history of nicotine dependence; Z79.82 Long term (current) use of aspirin; Z79.899 Other long term (current) drug therapy

== ENCOUNTER 2017-02-17 20:48 | Emergency (ER) | payer BC ==
[~2017-02-17] VITALS: Ht 175.3 cm; Wt 66.0 kg
[~2017-02-17 20:48] MED LIST changes: +AMIO200T4 PO; +APIX1TAB3 PO; +ASPI81TA28 PO; +DILT120C67 PO; +DOCU100C31 PO; +OXYC-609 PO
[2017-02-17 20:54] VITALS: Ht 175.3 cm; Wt 66.0 kg
[2017-02-17] MEDS ORDERED: SODIUM CHLORIDE 0.9% 1000ML 1,000 ML IV STA (21:19)
[2017-02-17] MEDS ORDERED: OPTIRAY 320 IV PRN (21:30)
[2017-02-17 22:51] LABS: BASO % 0.2 %; BASO ABS # 0.03 K/uL (0-0.2); COMPLETE YES; EOS % 0.1 %; HEMATOCRIT 31.6 % (42-52); IG% 0.2 %; LYMPH % 5.1 %; LYMPH ABS # 0.67 K/uL (1.2-3.4); MEAN CELL VOLUME 87.5 fL (80-100); MEAN CORPUSCULAR HEMOGLOBIN 29.4 pg (25-34); MEAN CORPUSCULAR HGB CONC 33.5 g/dl (32-36); MEAN PLATELET VOLUME 9.8 fL (7.4-10.4); MONO % 14.7 %; NEUT % 79.7 %; PLATELET COUNT 231 K/uL (130-400); RED BLOOD COUNT 3.61 M/uL (4.7-6.1); WHITE BLOOD COUNT 13.09 K/uL (4.8-10.8)
[2017-02-17 23:16] LABS: ALT/SGPT 16 U/L (12-78); AST/SGOT 17 U/L (15-37); BLOOD UREA NITROGEN 14 mg/dl (7-18); BUN/CREATININE RATIO 16.4 (10-20); CARBON DIOXIDE 30 mmol/L (21-32); CHLORIDE 101 mmol/L (98-107); CREATININE 0.88 mg/dl (0.60-1.40); GLUCOSE 134 mg/dl (70-99); POTASSIUM 4.4 mmol/L (3.5-5.1); SODIUM 135 mmol/L (136-145)
[2017-02-17 23:20] LABS: ALB/GLOB RATIO 0.7 (0.9-2); ALKALINE PHOSPHATASE 139 U/L (45-117)
[2017-02-17] MEDS ORDERED: ACETAMINOPHEN 500 MG TAB PO STA (23:41)
--- NOTE | 2017-02-17 23:53 | EMERGENCY ROOM VISIT NOTE ---
History Report prepared by Deangelo: Santino Fitzgerald Under the Supervision of: Lupe BalderasO. First contact with patient: 21:19 Chief Complaint: FEVER Stated Complaint: FEVER, NEEDS WHEELCHA, HEART VALVE REPLACED 01/13/17 History of Present Illness The patient is a 72 year old male who presents to the Emergency Room with complaints of fever beginning today. The patient was seen in the Emergency Room last night with episode of SOB but was discharged home. He states that he developed upper back pain has worsened today and is located across the entirety of his upper back and shoulders with additional chest pain occurring across the top of his chest with movement. He says that laying still he has no pain. He notes that he is also experiencing chills, shakiness, and a fever of 101.8 but did not take any medication at home. He notes that he is also experiencing nausea that improves with deep breaths. The patient denies any shortness of breath, diarrhea, productive cough, runny nose, ear pressure, sore throat, and sick contacts. He states that he saw his chiropractor two days ago and he noted that everything was normal. Source of History: patient Onset: yesterday Position: back (upper) Timing: constant Modifying Factors (Relieving): other (deep breathing) Associated Symptoms: + fevers, + chills, + nausea, No sorethroat, No SOB, No diarrhea Note: He notes that he is experiencing shakiness. The patient denies any productive cough, runny nose, ear pressure, and sick contacts Review of Systems See HPI for pertinent positives & negatives. A total of 10 systems reviewed and were otherwise negative. Past Medical & Surgical Medical Problems: (1) Lower abdominal pain (2) Lumbar stenosis with neurogenic claudication (3) Mitral valve prolapse (4) Pneumonia (5) S/P hernia repair Family History Cancer Social History Smoking Status: Never Smoker Alcohol Use: none Marital Status: Housing Status: lives with significant other Occupation Status: employed Current/Historical Medications Scheduled Amiodarone Hcl (Cordarone), 200 MG PO DAILY Apixaban (Eliquis), 5 MG PO BID Aspirin (Aspirin Ec), 81 MG PO DAILY Diltiazem Hcl Extended Release (Diltiazem Hcl Er), 120 MG PO DAILY Docusate Sodium (Docusate Sodium), 100 MG PO BID Gabapentin (Neurontin), 300 MG PO BID Oxycodone HCl (Oxycodone HCl), 5 MG PO QAM Scheduled PRN Glucosamine-Chondroitin (Osteo Bi-Flex Regular Str), 2 TABLETS PO BID PRN for Joint Pain Miscellaneous Medications Nabumetone (Nabumetone), 750 MG PO Allergies Coded Allergies: No Known Drug Allergy (Verified Allergy, Unknown, NKDA, 02/17/17) Physical Exam Vital Signs Date Time Temp Pulse Resp B/P (MAP) Pulse Ox O2 Delivery O2 Flow Rate FiO2 02/18/17 07:45 70 17 121/63 97 Room Air 02/18/17 06:34 68 18 104/60 96 Room Air 02/18/17 05:15 63 18 106/57 96 Room Air 02/18/17 02:00 36.8 67 24 106/61 93 Room Air 02/18/17 01:51 65 02/18/17 01:15 37.1 02/17/17 23:54 74 24 129/67 95 Room Air 02/17/17 23:18 38.2 02/17/17 23:00 76 28 105/61 97 Room Air 02/17/17 22:30 77 24 02/17/17 22:00 78 27 02/17/17 21:55 77 02/17/17 20:54 37.8 80 20 116/62 95 Room Air Physical Exam GENERAL: alert, well appearing, well nourished, no distress, non-toxic EYE EXAM: normal conjunctiva, PERRL and EOM's grossly intact OROPHARYNX: no exudate, no erythema, lips, buccal mucosa, and tongue normal and mucous membranes are moist NECK: supple, no nuchal rigidity, no adenopathy, non-tender CHEST: healing midline vertical sternotomy incision LUNGS: Clear to auscultation. Normal chest wall mechanics, no w/r/r HEART: no murmurs, S1 normal and S2 normal, well healing vertical midline sternotomy scar noted, no surrounding erythema, no drainage or dehiscence ABDOMEN: abdomen soft, non-tender, normo-active bowel sounds, no masses, no rebound or guarding. BACK: Back is symmetrical on inspection and there is no deformity, no midline tenderness, no CVA tenderness. SKIN: no rashes and no bruising UPPER EXTREMITIES: upper extremities are grossly normal. Nml ROM, nml pulses. LOWER EXTREMITIES: No pitting edema. Nml ROM, nml pulses. NEURO EXAM: Normal sensorium, cranial nerves II-XII grossly intact, normal speech, no gross weakness of arms, no gross weakness of legs. Medical Decision & Procedures ER Provider Diagnostic Interpretation: Radiology results have been interpreted by the radiologist and reviewed by me. CTA CHEST: Respiratory motion artifact limits the evaluation No evidence of filling defect to suggest pulmonary embolism Thoracic aorta within limits Small left pleural effusion with associated partial passive collapse, atelectasis Nonobstructing left intrarenal stone visualized upper kidney Bilateral partially imaged perinephric stranding, edema is nonspecific No focal consolidation Status post mitral valve replacement Pericardial effusion measuring up to 2 cm along the left ventricle axial 47 requires further clinical correlation and appears contiguous with retrosternal fluid collection at the anterior mediastinum meausuring around 3 x 2.5 x 9 cm axial 82 and coronal 19 which may be due to the pericardial effusion with a retrosternal abscess not excluded No associated gas identified Radiologist: Gigi Hsieh M.D. Laboratory Results 02/17/17 22:31 Red Blood Count 3.61, Mean Corpuscular Volume 87.5, Mean Corpuscular Hemoglobin 29.4, Mean Corpuscular Hemoglobin Concent 33.5, Mean Platelet Volume 9.8, Neutrophils (%) (Auto) 79.7, Lymphocytes (%) (Auto) 5.1, Monocytes (%) (Auto) 14.7, Eosinophils (%) (Auto) 0.1, Basophils (%) (Auto) 0.2, Neutrophils # (Auto ) 10.42, Lymphocytes # (Auto) 0.67, Monocytes # (Auto) 1.93, Eosinophils # (Auto ) 0.01, Basophils # (Auto) 0.03 02/17/17 22:31 Test 02/17/17 22:31 02/18/17 00:10 02/18/17 00:40 White Blood Count 13.09 K/uL (4.8-10.8) Red Blood Count 3.61 M/uL (4.7-6.1) Hemoglobin 10.6 g/dL (14.0-18.0) Hematocrit 31.6 % (42-52) Mean Corpuscular Volume 87.5 fL (80-100) Mean Corpuscular Hemoglobin 29.4 pg (25-34) Mean Corpuscular Hemoglobin Concent 33.5 g/dl (32-36) Platelet Count 231 K/uL (130-400) Mean Platelet Volume 9.8 fL (7.4-10.4) Neutrophils (%) (Auto) 79.7 % Lymphocytes (%) (Auto) 5.1 % Monocytes (%) (Auto) 14.7 % Eosinophils (%) (Auto) 0.1 % Basophils (%) (Auto) 0.2 % Neutrophils # (Auto) 10.42 K/uL (1.4-6.5) Lymphocytes # (Auto) 0.67 K/uL (1.2-3.4) Monocytes # (Auto) 1.93 K/uL (0.11-0.59) Eosinophils # (Auto) 0.01 K/uL (0-0.5) Basophils # (Auto) 0.03 K/uL (0-0.2) RDW Standard Deviation 48.4 fL (36.4-46.3) RDW Coefficient of Variation 14.8 % (11.5-14.5) Immature Granulocyte % (Auto) 0.2 % Immature Granulocyte # (Auto) 0.03 K/uL (0.00-0.02) Anion Gap 4.0 mmol/L (3-11) Est Creatinine Clear Calc Drug Dose 71.9 ml/min Estimated GFR () 100.2 Estimated GFR (Non- 86.4 BUN/Creatinine Ratio 16.4 (10-20) Lactic Acid Level 1.1 mmol/L (0.4-2.0) Calcium Level 9.0 mg/dl (8.5-10.1) Total Bilirubin 0.6 mg/dl (0.2-1) Aspartate Amino Transf (AST/SGOT) 17 U/L (15-37) Alanine Aminotransferase (ALT/SGPT) 16 U/L (12-78) Alkaline Phosphatase 139 U/L (45-117) Troponin I < 0.015 ng/ml (0-0.045) Total Protein 7.3 gm/dl (6.4-8.2) Albumin 3.0 gm/dl (3.4-5.0) Globulin 4.3 gm/dl (2.5-4.0) Albumin/Globulin Ratio 0.7 (0.9-2) Urine Color YELLOW Urine Appearance CLEAR (CLEAR) Urine pH 7.0 (4.5-7.5) Urine Specific [place] > 1.045 (1.000-1.030) Urine Protein NEG (NEG) Urine Glucose (UA) NEG (NEG) Urine Ketones NEG (NEG) Urine Occult Blood NEG (NEG) Urine Nitrite NEG (NEG) Urine Bilirubin NEG (NEG) Urine Urobilinogen NEG (NEG) Urine Leukocyte Esterase NEG (NEG) Influenza Type A Antigen Neg for Influ A (NEG) Influenza Type B Antigen Neg for Influ B (NEG) Laboratory results per my review. Medications Administered Medications (Trade) Dose Ordered Sig/Mya Route Start Time Stop Time Status Last Admin Dose Admin Sodium Chloride 1,000 ml @ 125 mls/hr Q8H STAT IV 02/17/17 21:19 02/18/17 05:18 DC 02/17/17 21:19 125 MLS/HR Acetaminophen (Tylenol Tab) 1,000 mg NOW STAT PO 02/17/17 23:41 02/17/17 23:42 DC 02/17/17 23:52 1,000 MG Vancomycin HCl (Vancomycin 1gm/ 270ml Nss) 1 gm NOW STAT IV 02/18/17 00:26 02/18/17 00:27 DC 02/18/17 00:44 1 GM ECG Indication: back/shoulder pain Rate (beats per minute): 75 Rhythm: sinus rhythm Findings: no acute ischemic change, other (Normal axis, normal intervals, flattened T waves in leads 1, 2, 3, AVL and AVF changes) ED Course 2132: The patient was evaluated in room B9. A complete history and physical exam was performed. 9: Sodium Chloride 1000 ml @ 125 mls/hr IV 2341: Tylenol Tab 1000mg PO. 0026: Vancomycin 1gm/270ml Nss IV 0055: I spoke to Dr. Hall and Dr. Spring of [facility]. Dr. Hall does not think that the patient needs inpatient bed transfer and notes that his changes are normal post-operative changes. He recommends transfer to the ED. Dr. Spring states that he will accept the patient. 0119: I reevaluated and updated the patient. 0214: Upon reevaluation, the patient is doing well. I discussed the findings and the treatment plan with the patient. He expresses agreement and understanding. I spoke with Dr. Spring of the [facility] Hospitalist Service. He will be evaluated and transferred for further management. Medical Decision Differential diagnosis: Etiologies such as viral syndrome, otitis, pharyngitis, pneumonia, influenza, meningitis, urinary tract infection, sepsis, bacteremia, as well as others were entertained. Pt now with fever after appearing well yesterday and being afebrile. WBC increasing. No other obvious source of infection and CT chest questions pericardial effusion and retrosternal abscess. Thoracic surgery at [place] feels more likely post op changes and will evaluate the patient in the ER. Pt aware of this. Pt covered with Vancomycin and cultures sent. Flu negative. Urine negative. Pt with no other GI symptoms to warrant Gi imaging. No other URI symptoms to suggest sinusitis/pharyngitis. No obvious pneumonia on CT. Pt with stable VS. Will be transported by ground to [place] for additional evaluation. Medication Reconcilliation Current Medication List: was personally reviewed by me Blood Pressure Screening Patient's blood pressure: Normal blood pressure Blood pressure disposition: Did not require urgent referral Consults Time Called: 004 Consulting Physician: Dr. Hall and Dr. Spring Returned Call: [address] Hall (thoracic surgery) and Dr. Spring (ER) of [facility]. Dr. Hall does not think that the patient needs inpatient bed transfer and notes that his changes are normal post-operative changes. He recommends transfer to the ED. Dr. Spring states that she will accept the patient. Impression Primary Impression: Fever Additional Impressions: Pericardial effusion Back pain Status post heart valve repair Critical Care I have personally spent greater than 45 minutes of critical care time in the direct management of this patient. This includes bedside care, interpretation of diagnostic studies, and testing, discussion with consultants, patient, and family members, and other required patient management activities. This 45 minutes is in excess of all separately billable procedures. Scribe Attestation The scribe's documentation has been prepared under my direction and personally reviewed by me in its entirety. I confirm that the note above accurately reflects all work, treatment, procedures, and medical decision making performed by me. Departure Information Dispostion Transfer Acute Care Facility Referrals Bernardino Flor M.D. (PCP) Forms HOME CARE DOCUMENTATION FORM, IMPORTANT VISIT INFORMATION Patient Instructions My [facility] Problem Qualifiers Primary Impression: Fever Fever type: unspecified Qualified Codes: R50.9 - Fever, unspecified Additional Impressions: Back pain Back pain location: thoracic back pain Chronicity: acute Back pain laterality: bilateral Qualified Codes: M54.6 - Pain in thoracic spine
[2017-02-18 00:22] LABS: URINE APPEARANCE CLEAR (CLEAR); URINE BILIRUBIN NEG (NEG); URINE COLOR YELLOW; URINE NITRITE NEG (NEG); URINE SPECIFIC GRAVITY > 1.045 (1.000-1.030); UROBILINOGEN NEG (NEG); ZZUR CULT IF INDIC CLEAN CATCH NO
[2017-02-18] MEDS ORDERED: VANCOMYCIN 1GM/270ML NSS IV STA (00:26)
[2017-02-18 00:27] LABS: MANUAL MICROSCOPIC REQUIRED? NO; REVIEW REQ? NO
[2017-02-18 02:00] VITALS: TEMP 36.8
[2017-02-18 07:45] VITALS: BP 121/63; PULSE 70; O2SAT 97
--- NOTE | 2017-02-18 08:20 | DIAGNOSTIC IMAGING REPORT ---
(CHEST FOR PE) ANGIO WITH CT DOSE: 394.13 mGy.cm HISTORY: 72 years-old Male presents with acute fever and shortness of breath status post recent mitral valve replacement. TECHNIQUE: Multiple CTA images of the chest were obtained after the intravenous administration of 116 mL Optiray 320. Coronal and sagittal MIPS were obtained from the axial data set and were submitted for review. A dose lowering technique was utilized adhering to the principles of ALARA. COMPARISON: CT abdomen and pelvis 11/08/2015. FINDINGS: CTA: Heart is moderately enlarged with prosthetic mitral valve present. Coronary arterial calcifications are noted. Moderate sized pericardial effusion is noted. No evidence of pericardial temporal not on these images. The effusion measures up to 2.0 cm. Additionally, there is a linear ovoid fluid collection of the anterior mediastinum retrosternal space which abuts and appears contiguous with the pericardial effusion measuring 2.4 x 3.4 x 10.7 cm in AP, transverse and craniocaudal dimensions. This collection spans almost the entire length of the sternum. Prior median sternotomy without evidence of dehiscence. There is mild atherosclerotic plaquing of the thoracic aorta with the imaged great vessels patent. No aortic dissection or aneurysm. The distal subsegmental branches of the pulmonary arterial tree are not well seen secondary to respiratory motion and contrast bolus timing. No evidence of pulmonary embolus. CT CHEST: No focal thyroid nodule. No definite adenopathy. Small left pleural effusion with subsegmental left basilar consolidation. Mild bilateral bronchial wall thickening. Groundglass opacities are seen within the left upper lobe layering along the fissure suggesting atelectasis. There are mild layering secretions noted within the truncus intermedius distally. Debris-filled mid to distal esophagus is noted. There are nonobstructing calculi of the superior pole left kidney measuring up to 7 mm. Nonspecific perinephric stranding is present bilaterally. Mild diffuse body wall edema. Remote right-sided rib fractures are noted. Multilevel degenerative changes of the spine. Right-sided os acromiale measures 2.0 x 1.7 cm. IMPRESSION: 1. No acute aortic pathology or evidence of pulmonary thromboembolic disease. 2. Prior median sternotomy with placement of prosthetic mitral valve. There is a moderate-sized pericardial effusion with a homogeneous retrosternal fluid collection contiguous with the pericardial effusion measuring up to 2.4 x 3.4 x 10.7 cm spanning almost the entire length of the sternum. No evidence of sternal dehiscence. Differential considerations would include postoperative seroma or abscess. Close follow-up is needed. 3. Small left pleural effusion with subsegmental left basilar consolidation suggesting compressive atelectasis or pneumonia. Mild layering secretions are present within the esophagus and bronchus intermedius with associated bronchial wall thickening which raises the possibility of aspiration. 4. Nonobstructing calculi of the superior pole left kidney incidentally noted. 5. Right os acromiale. The above report was generated using voice recognition software. It may contain grammatical, syntax or spelling errors. Electronically signed by: Andre Gutierrez M.D. 02/18/2017 8:19 AM Dictated Date/Time: 02/18/2017 8:06 AM
== END 2017-02-18 07:50 | disposition short-term general hospital (02) ==
LOC: C.EDB 20:50
DX: R50.9 Fever, unspecified (principal); I31.3 Pericardial effusion (noninflammatory); M54.6 Pain in thoracic spine; Z98.890 Other specified postprocedural states; M48.061 Spinal stenosis, lumbar region without neurogenic claudication; Z87.01 Personal history of pneumonia (recurrent); I34.1 Nonrheumatic mitral (valve) prolapse; Z80.9 Family history of malignant neoplasm, unspecified; Z79.82 Long term (current) use of aspirin; Z79.899 Other long term (current) drug therapy

== ENCOUNTER → 2017-05-04 | Day surgery (SDC) | payer BC ==
[~2017-05-04] VITALS: Ht 167.6 cm; Wt 67.2 kg
[~2017-05-04] MED LIST changes: +MECL1TAB42 PO; +MULT-506 PO; -MULT-845 PO; +NABU500T3 PO; -OMEG10007 PO; +TRAM-10 PO
[2017-05-04 07:07] VITALS: BP 132/89; PULSE 103; TEMP 36.5; O2SAT 98; Ht 167.6 cm; Wt 67.2 kg
[2017-05-04 07:42] VITALS: BP 115/79; PULSE 99; O2SAT 100
--- NOTE | 2017-05-04 07:42 | History & Physical Bridge Note ---
H&P Re-Evaluation Bridge Note: I have examined the patient, reviewed the History & Physical and in the interval since the performance of the History & Physical I have noted the following changes of clinical significance: No changes noted. I reviewed the indications, procedure, risks and alternatives of cardioversion with him and he understand and agrees to proceed. Consent obtained.
[2017-05-04 07:47] VITALS: BP 112/69; PULSE 93; O2SAT 100
--- NOTE | 2017-05-04 07:52 | Cardioversion ---
Electricial Cardioversion Rpt Date of Service: 05/04/2017 Electrical Cardioversion Rprt The patient was brought to the laboratory being NPO after midnight and was identified in the laboratory, connected to the recording apparatus including electrocardiographic monitoring, noninvasive blood pressure monitoring and pulse oximetry. Anteroposterior patch electrodes were placed. The patient was anesthetized by the anesthesia department. Once adequate anesthesia was obtained a synchronized biphasic shock was delivered using 100 J with conversion to a sinus rhythm. The patient awoke from the anesthetic without sequela, will be observed briefly and then discharged.
--- NOTE | 2017-05-04 08:07 | Anesthesiology Progress Note ---
Anesthesia Post Op Note Date & Time May 04, 2017 at 08:06 Vital Signs Pain Intensity: 0 Vital Signs Past 12 Hours Date Time Temp Pulse Resp B/P (MAP) Pulse Ox O2 Delivery O2 Flow Rate FiO2 05/04/17 07:58 75 16 90/62 (71) 95 Nasal Cannula 4 05/04/17 07:48 73 16 103/68 (80) 99 Nasal Cannula 4 05/04/17 07:47 93 18 112/69 100 Nasal Cannula 4 05/04/17 07:42 99 18 115/79 100 Nasal Cannula 4 05/04/17 07:07 36.5 103 18 132/89 (103) 98 Room Air Notes Mental Status: alert / awake / arousable, participated in evaluation Pt Amnestic to Procedure: Yes Nausea / Vomiting: adequately controlled Pain: adequately controlled Airway Patency, RR, SpO2: stable & adequate BP & HR: stable & adequate Hydration State: stable & adequate Anesthetic Complications: no major complications apparent
--- NOTE | 2017-05-04 08:19 | Discharge Instructions ---
Discharge Instructions Date of Service May 04, 2017. Admission Reason for Admission: Atrial Flutter Discharge Discharge Diagnosis / Problem: electrical cardioversion Discharge Goals Goal(s): Improve disease control Activity Recommendations Activity Limitations: resume your previous activity . Instructions / Follow-Up Instructions / Follow-Up ACTIVITY RECOMMENDATIONS: * May resume driving tomorrow. SPECIAL CARE: * May apply burn ointment for skin irritation. * Please contact physician for any lightheadedness, dizziness or palpitations. Current Hospital Diet Patient's current hospital diet: AHA Diet (Heart Healthy) Discharge Diet Recommended Diet: AHA Diet (Heart Healthy) Procedures Procedures Performed: Electrical cardioversion Pending Studies Studies pending at discharge: no Medical Emergencies . Who to Call and When: Medical Emergencies: If at any time you feel your situation is an emergency, please call 911 immediately. . Non-Emergent Contact Non-Emergency issues call your: Primary Care Provider . . "Provider Documentation" section prepared by Tristin Ricks. . VTE Core Measure Inpt VTE Proph given/why not?: Other Anticoagulation
[2017-05-04 09:00] VITALS: BP 104/72; PULSE 78; O2SAT 97
== END | disposition home or self-care (01) ==
LOC: C.CATH 06:26
PROVIDERS: ATTEND Internal Medicine Cardiovascular Disease
DX: I48.92 Unspecified atrial flutter (principal); I48.0 Paroxysmal atrial fibrillation; R42 Dizziness and giddiness; I95.1 Orthostatic hypotension; M19.049 Primary osteoarthritis, unspecified hand; Z95.2 Presence of prosthetic heart valve; Z79.1 Long term (current) use of non-steroidal anti-inflammatories (NSAID); Z79.82 Long term (current) use of aspirin; Z87.891 Personal history of nicotine dependence

== ENCOUNTER → 2017-07-26 | Outpatient (CLI) | payer BC ==
[~2017-07-26] MED LIST changes: -DOCU100C31 PO; -NABU750T PO; -OXYC-609 PO
== END | disposition home or self-care (01) ==
LOC: C.RDSM 11:07
PROVIDERS: ATTEND Orthopaedic Surgery
DX: M25.569 Pain in unspecified knee (principal)

== ENCOUNTER 2017-08-25 09:49 | Emergency (ER) | payer BC ==
[2017-08-25 09:51] VITALS: TEMP 36.4
[2017-08-25] MEDS ORDERED: SODIUM CHLORIDE 0.9% 1000ML 1,000 ML IV STA (10:07)
[2017-08-25] MEDS ORDERED: METO-478 PO (10:19)
[2017-08-25 10:35] LABS: BASO % 0.5 %; BASO ABS # 0.04 K/uL (0-0.2); EOS ABS # 0.31 K/uL (0-0.5); HEMATOCRIT 41.6 % (42-52); HEMOGLOBIN 14.1 g/dL (14.0-18.0); IG# 0.05 K/uL (0.00-0.02); LYMPH % 19.3 %; LYMPH ABS # 1.49 K/uL (1.2-3.4); MEAN CELL VOLUME 90.4 fL (80-100); MEAN CORPUSCULAR HEMOGLOBIN 30.7 pg (25-34); MEAN CORPUSCULAR HGB CONC 33.9 g/dl (32-36); MEAN PLATELET VOLUME 9.7 fL (7.4-10.4); MONO % 13.8 %; MONO ABS # 1.07 K/uL (0.11-0.59); NEUT % 61.8 %; NEUT ABS # 4.78 K/uL (1.4-6.5); PLATELET COUNT 215 K/uL (130-400); RED CELL DISTRIBUTION WIDTH CV 15.2 % (11.5-14.5); RED CELL DISTRIBUTION WIDTH SD 50.7 fL (36.4-46.3); WHITE BLOOD COUNT 7.74 K/uL (4.8-10.8)
[2017-08-25 10:48] LABS: ALBUMIN 3.7 gm/dl (3.4-5.0); ALT/SGPT 24 U/L (12-78); BLOOD UREA NITROGEN 19 mg/dl (7-18); CALCIUM 9.3 mg/dl (8.5-10.1); CARBON DIOXIDE 26 mmol/L (21-32); CREATININE 0.95 mg/dl (0.60-1.40); GLUCOSE 99 mg/dl (70-99); LIPASE 140 U/L (73-393); POTASSIUM 4.1 mmol/L (3.5-5.1); SODIUM 138 mmol/L (136-145)
[2017-08-25 10:51] LABS: ALKALINE PHOSPHATASE 155 U/L (45-117); AST/SGOT 24 U/L (15-37); TOTAL PROTEIN 7.3 gm/dl (6.4-8.2)
[2017-08-25] MEDS ORDERED: OPTIRAY 320 IV PRN (11:15)
--- NOTE | 2017-08-25 12:01 | DIAGNOSTIC IMAGING REPORT ---
CT SCAN OF THE ABDOMEN AND PELVIS WITH IV CONTRAST CLINICAL HISTORY: Hematuria. COMPARISON STUDY: Abdominal CT dated 11/08/2015. TECHNIQUE: Following the IV administration of 120 cc of Optiray 320, CT scan of the abdomen and pelvis is performed from the lung bases to the proximal femora. Images are reviewed in the axial, sagittal, and coronal planes. IV contrast was administered without complication. A dose lowering technique was utilized adhering to the principles of ALARA. The Examination is degraded by streak artifact from extensive orthopedic spinal hardware. The examination is also degraded by motion artifact. CT DOSE: 265.62 mGy.cm FINDINGS: Lung bases: The patient is status post midline sternotomy with evidence of previous mitral valve surgery. The heart is enlarged and without pericardial effusion. The coronary arteries are densely calcified. The lung bases are clear noting dependent atelectasis. A small hiatal hernia is noted. Liver: The contrast-enhanced liver is normal in size, contour, and attenuation. There is no intrahepatic biliary ductal dilatation. The hepatic veins and portal veins are patent. Gallbladder: Unremarkable. Spleen: Normal in size and attenuation. A subcentimeter hypodensity in the inferior spleen seen on image #155 is pathologically indeterminant and statistically of doubtful significance. Pancreas: Moderately atrophic and grossly unremarkable. Adrenal glands: Unremarkable. Kidneys: The contrast enhanced kidneys demonstrate cortical atrophy. 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 There is a 7 mm obstructing calculus in the proximal left ureter seen on image #217 at the level of L4. There is mild left hydronephrosis. There is mild associated left-sided perinephric stranding. An additional 3 mm nonobstructing calculus is seen in the right upper pole. No hydronephrosis is seen on the right. The kidneys enhance symmetrically. An 11 mm exophytic cyst is again seen arising from the interpolar left kidney. Abdominal vasculature: The abdominal aorta is normal in course and caliber noting moderate atherosclerotic calcification. Bowel: There is moderate colonic fecal retention. No bowel obstruction is identified. There is moderate sigmoid diverticulosis without CT evidence of acute diverticulitis. The appendix is well-visualized and normal. Peritoneum: There is no intraperitoneal free air or abdominal ascites. There is a tiny fat-containing umbilical hernia. Lymphadenopathy: None. Pelvic viscera: The prostate gland is mildly enlarged and heterogeneous, measuring 4.8 cm in transverse diameter. The bladder is distended and grossly unremarkable. There is a small fat-containing left inguinal hernia. Skeletal structures: The skeletal structures are osteopenic. There are postoperative changes from laminectomy and posterior fusion from L3 to S1. There is lucency around the interpedicular screws in S1 suggesting loosening. There are mild compression deformities of T12 and L1. No lytic or blastic lesions are seen. IMPRESSION: 1. There is a 7 mm obstructing calculus in the left proximal ureter. This causes mild left-sided hydronephrosis. 2. There is an additional nonobstructing left renal calculus. No right renal calculi are clearly identified on this contrast-enhanced examination. 3. 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 4. Moderate colonic fecal retention. No bowel obstruction is seen. 5. Moderate sigmoid diverticulosis without CT evidence of acute diverticulitis. 5. Cardiomegaly and hiatal hernia. 6. Prostatomegaly. 7. There is lucency around the interpedicular screws at S1 suggesting loosening. Clinical correlation will be required. 8. Additional findings as above. Electronically signed by: Carlos Caldwell M.D. 08/25/2017 12:00 PM Dictated Date/Time: 08/25/2017 11:47 AM
[2017-08-25] MEDS ORDERED: OXYC1TAB3 PO (12:21)
[2017-08-25] MEDS ORDERED: TAMS0.4C38 PO (12:21)
[2017-08-25 12:45] VITALS: BP 134/73; PULSE 66; O2SAT 100
--- NOTE | 2017-08-25 16:18 | EMERGENCY ROOM VISIT NOTE ---
History Report prepared by Deangelo: Ricarda Garcia Under the Supervision of: Dr. Mt Mathews D.O. First contact with patient: 09:57 Chief Complaint: URINARY SYMPTOMS Stated Complaint: BLEEDING WHILE URINATING History of Present Illness The patient is a 72 year old male who presents to the Emergency Room with complaints of episodes of blood in his urine beginning Monday, five days ago. The patient reports his urine is mostly blood in the morning and by the end of the day his urine is mostly clear. He denies any dysuria, urgency or frequency. He does take Eliquis. No penile trauma. Denies any dark tarry stools or coughing of blood. The patient reports he has had worsening weakness in his legs beginning two weeks ago. The patient states he has had to start using a cane over the past two weeks because his legs have become more weak. He has a history of back surgery a year ago. He is on eliquis twice a day. He reports a cough which is chronic for him. The patient had a microvalve replacement in January 2017. Pt denies headache, change in vision, fevers, chest pain, shortness of breath, nausea, vomiting, diarrhea, pain with urination , and numbness in his groin. Source of History: patient Onset: five days ago Position: other (generalized) Quality: other (blood in urine) Timing: other (episodes) Associated Symptoms: + headache, + cough, + diarrhea, + urinary symptoms, + weakness, No fevers, No chest pain, No SOB, No nausea, No vomiting, No numbness Review of Systems See HPI for pertinent positives & negatives. A total of 10 systems reviewed and were otherwise negative. Past Medical & Surgical Medical Problems: (1) Lower abdominal pain (2) Lumbar stenosis with neurogenic claudication (3) Mitral valve prolapse (4) Pneumonia (5) S/P hernia repair Family History Cancer Social History Smoking Status: Former Smoker Alcohol Use: none Marital Status: Housing Status: lives with significant other Occupation Status: employed Current/Historical Medications Scheduled Amiodarone Hcl (Cordarone), 100 MG PO DAILY Apixaban (Eliquis), 5 MG PO BID Aspirin (Aspirin Ec), 81 MG PO QAM Diltiazem Hcl Extended Release (Diltiazem Hcl Er), 120 MG PO QAM Gabapentin (Neurontin), 300 MG PO BID Glucosamine-Chondroitin (Osteo Bi-Flex Regular Str), 1 TABLETS PO BID Metoprolol Succinate (Toprol Xl), 25 MG PO QAM Multivitamin (Multivitamin), 1 TAB PO QAM Tamsulosin Hcl (Flomax), 0.4 MG PO DAILY Scheduled PRN Oxycodone Immediate Rel Tab (Roxicodone Ir), 5 MG PO Q6H PRN for Pain Tramadol (Ultram), 50 MG PO Q4H PRN for Pain Allergies Coded Allergies: No Known Drug Allergy (Verified Allergy, Unknown, NKDA, 08/25/17) Physical Exam Vital Signs Date Time Temp Pulse Resp B/P (MAP) Pulse Ox O2 Delivery O2 Flow Rate FiO2 08/25/17 12:45 66 16 134/73 100 08/25/17 12:18 66 16 134/73 100 Room Air 08/25/17 09:51 36.4 69 20 217/96 98 Room Air Physical Exam GENERAL: Sitting up in bed, alert, well appearing, well nourished, no distress, non-toxic EYE EXAM: normal conjunctiva. OROPHARYNX: no exudate, no erythema, lips, buccal mucosa, and tongue normal and mucous membranes are moist NECK: supple, no nuchal rigidity, no adenopathy, non-tender LUNGS: Clear to auscultation. Normal chest wall mechanics HEART: no murmurs, S1 normal and S2 normal ABDOMEN: abdomen soft, non-tender, normo-active bowel sounds, no masses, no rebound or guarding. BACK: Back is symmetrical on inspection and there is no deformity, no midline tenderness, no CVA tenderness. SKIN: no rashes and no bruising UPPER EXTREMITIES: upper extremities are grossly normal. LOWER EXTREMITIES: No pitting edema. Flexion and extension hip, knees, ankles and EHL 5/5 bilaterally gross sensation intact NEURO EXAM: Normal sensorium, cranial nerves II-XII grossly intact, normal speech, no gross weakness of arms, no gross weakness of legs. Medical Decision & Procedures ER Provider Diagnostic Interpretation: Radiology results as stated below per my review and the radiologist's interpretation: CT SCAN OF THE ABDOMEN AND PELVIS WITH IV CONTRAST FINDINGS: Lung bases: The patient is status post midline sternotomy with evidence of previous mitral valve surgery. The heart is enlarged and without pericardial effusion. The coronary arteries are densely calcified. The lung bases are clear noting dependent atelectasis. A small hiatal hernia is noted. Liver: The contrast-enhanced liver is normal in size, contour, and attenuation. There is no intrahepatic biliary ductal dilatation. The hepatic veins and portal veins are patent. Gallbladder: Unremarkable. Spleen: Normal in size and attenuation. A subcentimeter hypodensity in the inferior spleen seen on image #155 is pathologically indeterminant and statistically of doubtful significance. Pancreas: Moderately atrophic and grossly unremarkable. Adrenal glands: Unremarkable. Kidneys: The contrast enhanced kidneys demonstrate cortical atrophy. 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 There is a 7 mm obstructing calculus in the proximal left ureter seen on image #217 at the level of L4. There is mild left hydronephrosis. There is mild associated left-sided perinephric stranding. An additional 3 mm nonobstructing calculus is seen in the right upper pole. No hydronephrosis is seen on the right. The kidneys enhance symmetrically. An 11 mm exophytic cyst is again seen arising from the interpolar left kidney. Abdominal vasculature: The abdominal aorta is normal in course and caliber noting moderate atherosclerotic calcification. Bowel: There is moderate colonic fecal retention. No bowel obstruction is identified. There is moderate sigmoid diverticulosis without CT evidence of acute diverticulitis. The appendix is well-visualized and normal. Peritoneum: There is no intraperitoneal free air or abdominal ascites. There is a tiny fat-containing umbilical hernia. Lymphadenopathy: None. Pelvic viscera: The prostate gland is mildly enlarged and heterogeneous, measuring 4.8 cm in transverse diameter. The bladder is distended and grossly unremarkable. There is a small fat-containing left inguinal hernia. Skeletal structures: The skeletal structures are osteopenic. There are postoperative changes from laminectomy and posterior fusion from L3 to S1. There is lucency around the interpedicular screws in S1 suggesting loosening. There are mild compression deformities of T12 and L1. No lytic or blastic lesions are seen. IMPRESSION: 1. There is a 7 mm obstructing calculus in the left proximal ureter. This causes mild left-sided hydronephrosis. 2. There is an additional nonobstructing left renal calculus. No right renal calculi are clearly identified on this contrast-enhanced examination. 3. 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 4. Moderate colonic fecal retention. No bowel obstruction is seen. 5. Moderate sigmoid diverticulosis without CT evidence of acute diverticulitis. 5. Cardiomegaly and hiatal hernia. 6. Prostatomegaly. 7. There is lucency around the interpedicular screws at S1 suggesting loosening. Clinical correlation will be required. 8. Additional findings as above. Electronically signed by: Carlos Caldwell M.D. Laboratory Results 08/25/17 10:20 Red Blood Count 4.60, Mean Corpuscular Volume 90.4, Mean Corpuscular Hemoglobin 30.7, Mean Corpuscular Hemoglobin Concent 33.9, Mean Platelet Volume 9.7, Neutrophils (%) (Auto) 61.8, Lymphocytes (%) (Auto) 19.3, Monocytes (%) (Auto) 13.8, Eosinophils (%) (Auto) 4.0, Basophils (%) (Auto) 0.5, Neutrophils # (Auto ) 4.78, Lymphocytes # (Auto) 1.49, Monocytes # (Auto) 1.07, Eosinophils # (Auto ) 0.31, Basophils # (Auto) 0.04 08/25/17 10:20 Test 08/25/17 10:20 White Blood Count 7.74 K/uL (4.8-10.8) Red Blood Count 4.60 M/uL (4.7-6.1) Hemoglobin 14.1 g/dL (14.0-18.0) Hematocrit 41.6 % (42-52) Mean Corpuscular Volume 90.4 fL (80-100) Mean Corpuscular Hemoglobin 30.7 pg (25-34) Mean Corpuscular Hemoglobin Concent 33.9 g/dl (32-36) Platelet Count 215 K/uL (130-400) Mean Platelet Volume 9.7 fL (7.4-10.4) Neutrophils (%) (Auto) 61.8 % Lymphocytes (%) (Auto) 19.3 % Monocytes (%) (Auto) 13.8 % Eosinophils (%) (Auto) 4.0 % Basophils (%) (Auto) 0.5 % Neutrophils # (Auto) 4.78 K/uL (1.4-6.5) Lymphocytes # (Auto) 1.49 K/uL (1.2-3.4) Monocytes # (Auto) 1.07 K/uL (0.11-0.59) Eosinophils # (Auto) 0.31 K/uL (0-0.5) Basophils # (Auto) 0.04 K/uL (0-0.2) RDW Standard Deviation 50.7 fL (36.4-46.3) RDW Coefficient of Variation 15.2 % (11.5-14.5) Immature Granulocyte % (Auto) 0.6 % Immature Granulocyte # (Auto) 0.05 K/uL (0.00-0.02) Urine Color YELLOW Urine Appearance CLEAR (CLEAR) Urine pH 7.0 (4.5-7.5) Urine Specific [place] 1.010 (1.000-1.030) Urine Protein TRACE (NEG) Urine Glucose (UA) NEG (NEG) Urine Ketones NEG (NEG) Urine Occult Blood 3+ (NEG) Urine Nitrite NEG (NEG) Urine Bilirubin NEG (NEG) Urine Urobilinogen NEG (NEG) Urine Leukocyte Esterase NEG (NEG) Urine WBC (Auto) 1-5 /hpf (0-5) Urine RBC (Auto) >30 /hpf (0-4) Urine Hyaline Casts (Auto) 1-5 /lpf (0-5) Urine Epithelial Cells (Auto) 5-10 /lpf (0-5) Urine Bacteria (Auto) NEG (NEG) Urine Yeast (Auto) (NONE PRSENT) Anion Gap 6.0 mmol/L (3-11) Estimated GFR () 93.0 Estimated GFR (Non- 80.2 BUN/Creatinine Ratio 20.2 (10-20) Calcium Level 9.3 mg/dl (8.5-10.1) Total Bilirubin 0.4 mg/dl (0.2-1) Direct Bilirubin 0.1 mg/dl (0-0.2) Aspartate Amino Transf (AST/SGOT) 24 U/L (15-37) Alanine Aminotransferase (ALT/SGPT) 24 U/L (12-78) Alkaline Phosphatase 155 U/L (45-117) Total Protein 7.3 gm/dl (6.4-8.2) Albumin 3.7 gm/dl (3.4-5.0) Lipase 140 U/L (73-393) Laboratory results per my review. Medications Administered Medications (Trade) Dose Ordered Sig/Mya Route Start Time Stop Time Status Last Admin Dose Admin Sodium Chloride 1,000 ml @ 999 mls/hr Q1H1M STAT IV 08/25/17 10:07 08/25/17 11:07 DC 08/25/17 10:40 999 MLS/HR ED Course ED COURSE: Vital signs were reviewed and showed hypertensive The patients medical record was reviewed The above diagnostic studies were performed and reviewed. ED treatments and interventions as stated above. 0959: The patient was evaluated in room B2. A complete history and physical examination was performed. 1007: Ordered Sodium Chloride 1000 ml @ 999 mls/hr IV. 1207: I updated the patient on his test results. 1227: Upon reevaluation, the patient is resting comfortably.I discussed my findings with the patient and he understands and agrees with the treatment plan. Based on the patients age, coexisting illnesses, exam and lab findings the decision to treat as an outpatient was made. The patient remained stable while under my care. The patient appeared well at the time of discharge. Medical Decision Differential Diagnosis includes but is not limited to dehydration, stroke, anemia, hypoglycemia, hyponatremia, hypernatremia, urinary tract infection, pneumonia, bronchitis, sepsis, gastroenteritis, additional abdominal pathology, metabolic abnormalities and infections. Patient is a 72-year-old male who presents with hematuria for the past couple days. He is on Eliquis for mitral valve replacement. Patient does note that he feels very weak throughout as well. Vitals are stable. Afebrile. CBC along with BMP, LFTs, bilirubin and lipase was unremarkable. UA did have hematuria without signs of infection. CT shows left proximal ureteral stone of 7 mm. There was some mild hydronephrosis. Normal kidney function. No infection. CT of the abdomen did show possible fracture at L1. This was discussed with the patient and he notes that this is old. Patient was given Flomax and OxyIR. He was discharged follow-up with his PCP as an outpatient. He has an appointment with urology on Monday. He will return with any fevers or worsening pain. He was also instructed to follow-up with his spine surgeon. He was not anemic. No signs of retention. Discussed with Pt concerning signs and symptoms to watch out for. Pt was instructed to follow up with their PCP and discussed with the patient their option to return to the ED at anytime for persistent or worsening symptoms. The appropriate anticipatory guidance and out-patient management, including indications for return to the emergency department, were explained at length to the patient and understood. Medication Reconcilliation Current Medication List: was personally reviewed by me Blood Pressure Screening Patient's blood pressure: Elevated blood pressure Blood pressure disposition: Elevated BP felt to be situational Impression Primary Impression: Renal colic Additional Impressions: Compression fracture Hydronephrosis Scribe Attestation The scribe's documentation has been prepared under my direction and personally reviewed by me in its entirety. I confirm that the note above accurately reflects all work, treatment, procedures, and medical decision making performed by me. Departure Information Dispostion Home / Self-Care Prescriptions Tamsulosin Hcl (FLOMAX) 0.4 Mg Cap 0.4 MG PO DAILY, #10 CAP Prov: Mt Mathews, DO 08/25/17 Oxycodone Immediate Rel Tab (ROXICODONE IR) 5 Mg Tab 5 MG PO Q6H Y for Pain, #12 TAB Prov: Mt Mathews, DO 08/25/17 Referrals Bernardino Flor M.D. (PCP) Forms HOME CARE DOCUMENTATION FORM, IMPORTANT VISIT INFORMATION Patient Instructions Fx Back, Kidney Stones - [facility] Additional Instructions Please follow up with your primary care doctor with in the next 24 hours. Any worsening of your symptoms, please return to the ED immediately. This includes any fevers greater than 100.4, worsening pain, chest pain, shortness breath, persistent nausea, vomiting, unable to eat or drink, or any other concerning signs or symptoms from your standpoint. Your found to have a 7 mm proximal left ureteral stone. Please have this followed up on with urology on Monday. Please take OxyIR as needed for pain. Please take Flomax. Your also found to have a small compression fracture at L1. Please have this followed up on by your spinal surgery. Problem Qualifiers Additional Impressions: Hydronephrosis Hydronephrosis type: unspecified Qualified Codes: N13.30 - Unspecified hydronephrosis
== END 2017-08-25 12:52 | disposition home or self-care (01) ==
LOC: C.EDB 09:51
DX: N23 Unspecified renal colic (principal); M48.56XA Collapsed vertebra, not elsewhere classified, lumbar region, initial encounter for fracture; N13.30 Unspecified hydronephrosis; Z87.891 Personal history of nicotine dependence; Z79.82 Long term (current) use of aspirin; Z79.899 Other long term (current) drug therapy; M48.062 Spinal stenosis, lumbar region with neurogenic claudication; Z95.2 Presence of prosthetic heart valve

== ENCOUNTER → 2017-09-04 | Outpatient (CLI) | payer BC ==
[~2017-09-04] MED LIST changes: -MECL1TAB42 PO; +METO-478 PO; -NABU500T3 PO; +OXYC1TAB3 PO; +TAMS0.4C38 PO
== END | disposition home or self-care (01) ==
LOC: C.MAMM 14:34
PROVIDERS: ATTEND Family Medicine
DX: M81.0 Age-related osteoporosis without current pathological fracture (principal); M85.839 Other specified disorders of bone density and structure, unspecified forearm

== ENCOUNTER 2017-09-12 00:28 | Emergency (ER) | payer BC ==
[~2017-09-12] VITALS: Ht 170.2 cm; Wt 63.4 kg
[~2017-09-12 00:28] MED LIST changes: -TAMS0.4C38 PO
[2017-09-12 00:32] VITALS: TEMP 36.5; Ht 170.2 cm; Wt 63.4 kg
[2017-09-12] MEDS ORDERED: SODIUM CHLORIDE 0.9% 250ML 250 ML IV STA (00:58)
[2017-09-12] MEDS ORDERED: SODIUM CHLORIDE 0.9% 1000ML 1,000 ML IV STA (00:58)
[2017-09-12 01:03] LABS: BASO % 0.4 %; BASO ABS # 0.03 K/uL (0-0.2); EOS % 4.9 %; EOS ABS # 0.39 K/uL (0-0.5); HEMOGLOBIN 13.4 g/dL (14.0-18.0); IG# 0.03 K/uL (0.00-0.02); LYMPH % 26.9 %; LYMPH ABS # 2.15 K/uL (1.2-3.4); MEAN CELL VOLUME 92.4 fL (80-100); MEAN CORPUSCULAR HEMOGLOBIN 30.9 pg (25-34); MEAN CORPUSCULAR HGB CONC 33.5 g/dl (32-36); MEAN PLATELET VOLUME 9.3 fL (7.4-10.4); MONO % 14.1 %; MONO ABS # 1.13 K/uL (0.11-0.59); NEUT % 53.3 %; NEUT ABS # 4.26 K/uL (1.4-6.5); PLATELET COUNT 179 K/uL (130-400); RED CELL DISTRIBUTION WIDTH CV 14.9 % (11.5-14.5); RED CELL DISTRIBUTION WIDTH SD 50.5 fL (36.4-46.3); WHITE BLOOD COUNT 7.99 K/uL (4.8-10.8)
[2017-09-12] MEDS ORDERED: OXYC1TAB3 PO (01:14)
[2017-09-12] MEDS ORDERED: TAMS0.4C38 PO (01:14)
--- NOTE | 2017-09-12 01:16 | EMERGENCY ROOM VISIT NOTE ---
History Report prepared by Deangelo: Gisele Barnett Under the Supervision of: Dr. China Farley M.D. First contact with patient: 00:41 Chief Complaint: OTHER COMPLAINT Stated Complaint: COMPRESSED DISC,KIDNEY STONES,SHAKING IN LEGS History of Present Illness The patient is a 72 year old male who presents to the Emergency Room with complaints of episodic left leg muscle spasm about one hour ago. He notes that he was lying down to go to bed, when his left leg began melyssa. He states that he then developed uncontrollable shaking over his whole body. He denies any pain when the shaking started. He also reports mild abdominal pain, which he reports is new. The patient states that he has chronic low back pain and recently had an MRI, though has not received the results. He reports weakness to both legs, though is worse in his left leg than his right leg. He states that he is having a hard time walking, which he states is worsening every day due to the leg weakness. He notes numbness to both feet, which comes and goes. He reports a history of kidney stones which he is expected to have surgery to remove the stones. He has a history of lumbar decompression and fusion. He reports an old history of UTI. He denies any history of prostate problems. Source of History: patient Onset: one hour ago Position: leg (left) Quality: other (muscle spasm) Timing: other (episodic) Associated Symptoms: + abdominal pain, + back pain, + weakness (leg), + numbness (feet) Note: Notes shaking over entire body. Review of Systems See HPI for pertinent positives & negatives. A total of 10 systems reviewed and were otherwise negative. Past Medical & Surgical Medical Problems: (1) Lower abdominal pain (2) Lumbar stenosis with neurogenic claudication (3) Mitral valve prolapse (4) Pneumonia (5) S/P hernia repair Family History Cancer Social History Smoking Status: Never Smoker Smokeless Tobacco Use: No Alcohol Use: none Drug Use: none Marital Status: Housing Status: lives with significant other Occupation Status: unemployed Current/Historical Medications Scheduled Amiodarone Hcl (Cordarone), 100 MG PO DAILY Apixaban (Eliquis), 5 MG PO BID Aspirin (Aspirin Ec), 81 MG PO QAM Diltiazem Hcl Extended Release (Diltiazem Hcl Er), 120 MG PO QAM Gabapentin (Neurontin), 300 MG PO BID Glucosamine-Chondroitin (Osteo Bi-Flex Regular Str), 1 TABLETS PO BID Metoprolol Succinate (Toprol Xl), 25 MG PO QAM Multivitamin (Multivitamin), 1 TAB PO QAM Tamsulosin Hcl (Flomax), 0.4 MG PO DAILY Scheduled PRN Oxycodone Ir (Roxicodone Ir), 5 MG PO Q6H PRN for Pain Tramadol (Ultram), 50 MG PO Q4H PRN for Pain Allergies Coded Allergies: No Known Drug Allergy (Verified Allergy, Unknown, NKDA, 09/12/17) Physical Exam Vital Signs Date Time Temp Pulse Resp B/P (MAP) Pulse Ox O2 Delivery O2 Flow Rate FiO2 09/12/17 03:10 66 18 129/71 98 09/12/17 02:00 60 16 145/65 98 Room Air 09/12/17 00:32 36.5 63 18 124/68 99 Room Air Physical Exam Vital signs reviewed. General: Well-appearing, in no significant distress. HEENT: No scleral icterus, PERRLA, neck supple. Atraumatic. Cardiovascular: Regular rate and rhythm, no extra sounds. Pulmonary: Clear to auscultation bilaterally, normal work of breathing. Abdomen: Soft, mild tenderness to the suprapubic region, nondistended, positive bowel sounds. Musculoskeletal: Atraumatic, no peripheral edema. Neurologic: Patient awake alert and oriented x 3, weakness to left leg with straight leg raise. Skin: Warm, dry, no rash Medical Decision & Procedures ER Provider Diagnostic Interpretation: Radiology results as stated below per my review and radiologist interpretation: CT ABDOMEN & PELVIS Without Contrast: Comparison: 08/25/2017 Left renal 2 mm calculus. 11 mm rounded lesion. No uretral calculus or hydronephrosis. The bladder is mildly distended. Small hiatal hernia. The liver, gallbladder, pancreas and spleen are unremarkable for a non-infused exam. No evidence of bowel obstruction or colitis. Diverticulosis without diverticulitis. The appendix is unremarkable. No free fluid or free air. Radiologist: Alton Walden MD Study ready at 01:36 and initial results transmitted at 01:48 Laboratory Results 09/12/17 00:50 Red Blood Count 4.33, Mean Corpuscular Volume 92.4, Mean Corpuscular Hemoglobin 30.9, Mean Corpuscular Hemoglobin Concent 33.5, Mean Platelet Volume 9.3, Neutrophils (%) (Auto) 53.3, Lymphocytes (%) (Auto) 26.9, Monocytes (%) (Auto) 14.1, Eosinophils (%) (Auto) 4.9, Basophils (%) (Auto) 0.4, Neutrophils # (Auto ) 4.26, Lymphocytes # (Auto) 2.15, Monocytes # (Auto) 1.13, Eosinophils # (Auto ) 0.39, Basophils # (Auto) 0.03 09/12/17 00:50 Test 09/12/17 00:50 White Blood Count 7.99 K/uL (4.8-10.8) Red Blood Count 4.33 M/uL (4.7-6.1) Hemoglobin 13.4 g/dL (14.0-18.0) Hematocrit 40.0 % (42-52) Mean Corpuscular Volume 92.4 fL (80-100) Mean Corpuscular Hemoglobin 30.9 pg (25-34) Mean Corpuscular Hemoglobin Concent 33.5 g/dl (32-36) Platelet Count 179 K/uL (130-400) Mean Platelet Volume 9.3 fL (7.4-10.4) Neutrophils (%) (Auto) 53.3 % Lymphocytes (%) (Auto) 26.9 % Monocytes (%) (Auto) 14.1 % Eosinophils (%) (Auto) 4.9 % Basophils (%) (Auto) 0.4 % Neutrophils # (Auto) 4.26 K/uL (1.4-6.5) Lymphocytes # (Auto) 2.15 K/uL (1.2-3.4) Monocytes # (Auto) 1.13 K/uL (0.11-0.59) Eosinophils # (Auto) 0.39 K/uL (0-0.5) Basophils # (Auto) 0.03 K/uL (0-0.2) RDW Standard Deviation 50.5 fL (36.4-46.3) RDW Coefficient of Variation 14.9 % (11.5-14.5) Immature Granulocyte % (Auto) 0.4 % Immature Granulocyte # (Auto) 0.03 K/uL (0.00-0.02) Urine Color ORANGE Urine Appearance CLOUDY (CLEAR) Urine pH 7.0 (4.5-7.5) Urine Specific [place] 1.018 (1.000-1.030) Urine Protein 1+ (NEG) Urine Glucose (UA) NEG (NEG) Urine Ketones NEG (NEG) Urine Occult Blood 3+ (NEG) Urine Nitrite NEG (NEG) Urine Bilirubin NEG (NEG) Urine Urobilinogen NEG (NEG) Urine Leukocyte Esterase SMALL (NEG) Urine WBC (Auto) 1-5 /hpf (0-5) Urine RBC (Auto) >30 /hpf (0-4) Urine Hyaline Casts (Auto) 1-5 /lpf (0-5) Urine Epithelial Cells (Auto) 5-10 /lpf (0-5) Urine Bacteria (Auto) NEG (NEG) Anion Gap 5.0 mmol/L (3-11) Est Creatinine Clear Calc Drug Dose 64.6 ml/min Estimated GFR () 94.2 Estimated GFR (Non- 81.2 BUN/Creatinine Ratio 21.3 (10-20) Calcium Level 9.4 mg/dl (8.5-10.1) Total Bilirubin 0.3 mg/dl (0.2-1) Direct Bilirubin < 0.1 mg/dl (0-0.2) Aspartate Amino Transf (AST/SGOT) 24 U/L (15-37) Alanine Aminotransferase (ALT/SGPT) 28 U/L (12-78) Alkaline Phosphatase 160 U/L (45-117) Total Protein 7.7 gm/dl (6.4-8.2) Albumin 3.7 gm/dl (3.4-5.0) Laboratory results per my review. Medications Administered Medications (Trade) Dose Ordered Sig/Mya Route Start Time Stop Time Status Last Admin Dose Admin Sodium Chloride 250 ml @ 999 mls/hr Q16M STAT IV 09/12/17 00:58 09/12/17 01:13 DC 09/12/17 00:58 999 MLS/HR Sodium Chloride 1,000 ml @ 125 mls/hr Q8H STAT IV 09/12/17 00:58 09/12/17 03:53 DC 09/12/17 00:58 125 MLS/HR ED Course 0050: Past medical records reviewed. The patient was evaluated in room A4B. A complete history and physical examination was performed. 0058: Ordered Sodium Chloride 1,000 ml @ 125 mls/hr IV and Sodium Chloride 250 ml @ 999 mls/hr IV 0226: I reassessed the patient at this time. He is feeling better and resting comfortably. He ambulated reasonably with a walker. I discussed the results and treatment plan with the patient. I answered all pertaining questions that he had. He expressed understanding and verbalized agreement. The patient will be discharged home. 726: I spoke with Dr. Bah, orthopedic surgeon. We discussed the patient's case. He will review the patients chart and follow up with the patient. Medical Decision Differential diagnosis: Etiologies such as appendicitis, diverticulitis, PUD, biliary pathology, UTI, pancreatitis, obstruction, mesenteric ischemia, aortic pathology, infections, inflammatory bowel disease, renal colic, disc herniation, compression fracture, and radiculopathy, as well as others were entertained. This patient was evaluated and appeared to be in no significant distress. Physical examination is consistent with a left lower extremity weakness. The patient had an MRI of the lumbar spine [facility] about a week and half ago. He states he has not heard any results. He has been stumbling and having more difficulty ambulating with his walker. The second issue is that the patient has likely passed a renal calculus. His previous CT scan has revealed a 7 mm mid left ureteral calculus for which he has been evaluated by urology. He does have follow-up established with Dr. Macario. CT scan today reveals migration of this calculus without hydroureter at this time. Patient has had resolution of his symptoms. Patient was reassured that he would be discussed with Dr. Bah later this morning. Arrangements for follow-up within 24-48 hours to review the MRI would be made. The patient feels steady using his walker and will have his 's assistance. He was encouraged to follow-up with urology regarding the above findings. He does have follow-up established. He will be discharged and case management will follow up with the patient regarding appointments during business hours later today. He will return to to the ER for worsening of symptoms or any medical concerns. Medication Reconcilliation Current Medication List: was personally reviewed by me Blood Pressure Screening Patient's blood pressure: Normal blood pressure Consults Time Called: 129 Consulting Physician: Dr. Bah, orthopedic surgeon Returned Call: [phone] Bah, orthopedic surgeon. We discussed the patient's case. He will review the patients chart and follow up with the patient. Impression Primary Impression: Ureteral colic Additional Impression: Weakness of left lower extremity Scribe Attestation The scribe's documentation has been prepared under my direction and personally reviewed by me in its entirety. I confirm that the note above accurately reflects all work, treatment, procedures, and medical decision making performed by me. Departure Information Dispostion Home / Self-Care Referrals Bernardino Flor M.D. (PCP) Forms HOME CARE DOCUMENTATION FORM, IMPORTANT VISIT INFORMATION, WORK / SCHOOL INSTRUCTIONS Patient Instructions [facility] Additional Instructions Diagnosis: Ureteral colic, left lower extremity weakness You will be contacted tomorrow with an appointment time to see Dr. Bah or his physician's state tested nursing assistant. Please call the brood hatchery manager at [phone] if you do not hear from someone tomorrow. Continue your use your walker to ambulate at all times. Please drink plenty of clear fluids. Follow-up with urology tomorrow by phone to inform them that you have likely passed the left ureteral kidney stone. Return to the emergency department for worsening of symptoms or any medical concerns. Problem Qualifiers
[2017-09-12 01:32] LABS: ALBUMIN 3.7 gm/dl (3.4-5.0); ALT/SGPT 28 U/L (12-78); AST/SGOT 24 U/L (15-37); BLOOD UREA NITROGEN 20 mg/dl (7-18); CALCIUM 9.4 mg/dl (8.5-10.1); CARBON DIOXIDE 29 mmol/L (21-32); CREATININE 0.94 mg/dl (0.60-1.40); GLUCOSE 91 mg/dl (70-99); POTASSIUM 4.3 mmol/L (3.5-5.1); SODIUM 139 mmol/L (136-145)
[2017-09-12 01:34] LABS: ALKALINE PHOSPHATASE 160 U/L (45-117); TOTAL PROTEIN 7.7 gm/dl (6.4-8.2)
[2017-09-12 03:10] VITALS: BP 129/71; PULSE 66; O2SAT 98
--- NOTE | 2017-09-12 08:13 | DIAGNOSTIC IMAGING REPORT ---
ADDENDUM ADDITIONAL IMPRESSION: 8. Findings suggest sacral decubitus ulcer and possible bilateral ischial decubitus ulcers. Correlate clinically. Electronically signed by: Collin Morris M.D. 09/12/2017 8:36 AM Dictated Date/Time: 09/12/2017 8:35 AM ORIGINAL REPORT ABD/PELVIS NO IV OR ORAL CONT CLINICAL HISTORY: 72 years-old Male presenting with lower abd pain, L kidney stone, hematuria. Lumbar radiculopathy. TECHNIQUE: Multidetector CT of the abdomen and pelvis was performed without the use of intravenous contrast. IV contrast: None. A dose lowering technique was used consistent with the principles of ALARA (as low as reasonably achievable). COMPARISON: 08/25/2017. CT DOSE (mGy.cm): The estimated cumulative dose is 293.03 mGy.cm. FINDINGS: Chemist Inorganic topogram: Posterior lumbar fusion hardware. Lung bases: Minimal basilar opacities, likely atelectasis. Normal heart size. Coronary artery and mitral annular calcification. No pericardial or pleural effusion. Liver: Normal morphology. Normal density. Biliary: No gross biliary ductal dilatation allowing for noncontrast technique. Normal gallbladder. Pancreas: Normal noncontrast appearance. Spleen: Normal noncontrast appearance. Adrenal glands: Normal noncontrast appearance. Kidneys and ureters: Nonobstructing punctate calculus at the upper pole of the left kidney. No hydronephrosis. 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 There has been slight interval distal migration of the 6-7 millimeter calculus in the the lower pole moiety left ureter, which is now at the level of S1. No right hydronephrosis. Mild nonspecific bilateral perinephric fat stranding. Hypodensity exophytically arising from the interpolar region of the left kidney likely simple cyst better characterized on prior contrast enhanced exam. Right ureter normal. Bladder: Normal. No bladder calculi. Pelvic organs: Prostate enlargement likely secondary to benign prostatic hyperplasia. Calcification in the prostate is likely related to BPH, unchanged. Bowel: Diverticulosis of the sigmoid colon. No pericolonic inflammatory change. Mild stool burden throughout normal caliber colon. Apparent wall thickening of the ascending colon likely related to peristalsis. No bowel obstruction. The appendix is normal. Small hiatal hernia. Peritoneal cavity: No free fluid or intraperitoneal gas. Lymph nodes: No gross lymphadenopathy allowing for noncontrast technique. Vasculature: Atherosclerosis of the normal caliber abdominal aorta. Abdominal wall: Infiltration overlying the sacrum with associated skin thickening. Mild subcutaneous fat infiltration and skin thickening also noted along the inferior medial gluteal folds. Musculoskeletal: Posterior lumbar fusion hardware extending from L3 to S1. Associated laminectomy defects of L4 and L5. Anterolisthesis of L4 on L5. Extensive degenerative change. Mild height loss due to significant inferior endplate concavity of T12. Osteopenia. IMPRESSION: 1. Slight interval distal migration of the 6-7 mm calculus in the lower pole moiety left ureter, which is now located the level of S1. Resolution of left hydroureter. 2. Punctate nonobstructing left renal calculus. 3. Diverticulosis. 4. Benign prostatic hyperplasia with prostatomegaly. 5. Extensive postsurgical changes of the lumbar spine with anterolisthesis of L4 on L5. 6. Osteopenia. 7. Osteoporotic deformity of T12. Electronically signed by: Collin Morris M.D. 09/12/2017 8:11 AM Dictated Date/Time: 09/12/2017 6:43 AM
== END 2017-09-12 03:11 | disposition home or self-care (01) ==
LOC: C.EDB 00:29 → C.EDA 03:11
DX: R53.1 Weakness (principal); N23 Unspecified renal colic; Z79.01 Long term (current) use of anticoagulants; Z79.82 Long term (current) use of aspirin

== ENCOUNTER → 2017-09-14 | Outpatient (CLI) | payer BC ==
[~2017-09-14] MED LIST changes: +TAMS0.4C38 PO
--- NOTE | 2017-09-14 12:50 | DIAGNOSTIC IMAGING REPORT ---
(RENAL)RETROPERITON COMP HISTORY: Pain. Nephrocalcinosis. N20.1 Ureteric [id number] COMPARISON: CT abdomen and pelvis 09/12/2017 FINDINGS: Right kidney: Maximum dimension 10.6 cm. No evidence for hydronephrosis. Normal corticomedullary differentiation and cortical thickness. Left kidney: Maximum dimension 11.2 cm. No evidence for hydronephrosis. Normal corticomedullary differentiation and cortical thickness. Bladder: No bladder wall thickening. The bilateral ureteral jets were identified. IMPRESSION: Normal renal ultrasound. No evidence for hydronephrosis. The above report was generated using voice recognition software. It may contain grammatical, syntax or spelling errors. Electronically signed by: Lev Scott M.D. 09/14/2017 12:48 PM Dictated Date/Time: 09/14/2017 12:46 PM
--- NOTE | 2017-09-14 13:16 | DIAGNOSTIC IMAGING REPORT ---
KUB CLINICAL HISTORY: Ureterolithiasis. FINDINGS: 2 AP supine abdominal radiographs are correlated with abdominal CT dated 09/12/2017. There is a nonobstructed abdominal bowel gas pattern noting moderate colonic fecal retention. No calcifications are seen projecting over either kidney. The renal shadows are largely obscured by colonic contents. A 5 mm calcification is suspected projecting over the left vesicoureteral junction. The skeletal structures are osteopenic. Spondylotic change and extensive fusion hardware is noted in the lumbar spine. Midline sternotomy wires are noted. The heart appears enlarged. Lung bases are otherwise clear as imaged. IMPRESSION: 1. A 5 mm calcification is suspected projecting over the left vesicoureteral junction. This likely represents a distal ureteral stone when correlated with the recent abdominal CT scan. 2. No calcifications are seen projecting over the kidneys. 3. Moderate colonic fecal retention. Electronically signed by: Carlos Caldwell M.D. 09/14/2017 1:14 PM Dictated Date/Time: 09/14/2017 1:11 PM
== END | disposition home or self-care (01) ==
LOC: C.ULTR 11:49
PROVIDERS: ATTEND Urology
DX: N20.1 Calculus of ureter (principal); K59.00 Constipation, unspecified

== ENCOUNTER 2017-09-25 07:39 | Day surgery (SDC) | payer BC ==
[2017-09-20 15:22] VITALS: BMI 23.0
--- NOTE | 2017-09-20 16:13 | PAT Medication Instructions ---
Service Date September 20, 2017. Current Home Medication List Apixaban (Eliquis), 5 MG PO BID Aspirin (Aspirin Ec), 81 MG PO QAM Diltiazem Hcl Extended Release (Diltiazem Hcl Er), 120 MG PO QAM Gabapentin (Neurontin), 300 MG PO BID Glucosamine-Chondroitin (Osteo Bi-Flex Regular Str), 1 TABLETS PO BID Metoprolol Succinate (Toprol Xl), 25 MG PO QAM Multivitamin (Multivitamin), 1 TAB PO QAM Oxycodone/Acetaminophen 5MG/325MG (Percocet 5MG/325MG), 1-2 TABLETS PO for Pain Tamsulosin Hcl (Flomax), 0.4 MG PO QAM Tramadol (Ultram), 50 MG PO Q4H PRN for Pain [Lecithin], 1 TAB PO QAM Medication Instructions For Your Scheduled Surgery -Continue to follow your surgeon and radio personality's instructions for: Apixaban (Eliquis), 5 MG PO BID Aspirin (Aspirin Ec), 81 MG PO QAM - Hold the following medications starting today: Glucosamine-Chondroitin (Osteo Bi-Flex Regular Str), 1 TABLETS PO BID [Lecithin], 1 TAB PO QAM - Hold the following medications the morning of surgery: Multivitamin (Multivitamin), 1 TAB PO QAM - Take the following medications the morning of surgery with a sip of water: Diltiazem Hcl Extended Release (Diltiazem Hcl Er), 120 MG PO QAM Gabapentin (Neurontin), 300 MG PO BID Metoprolol Succinate (Toprol Xl), 25 MG PO QAM Oxycodone/Acetaminophen 5MG/325MG (Percocet 5MG/325MG), 1-2 TABLETS PO for Pain (if needed, but must be taken at lest four hours before surgery) Tamsulosin Hcl (Flomax), 0.4 MG PO QAM Tramadol (Ultram), 50 MG PO Q4H PRN for Pain (if needed, but must be taken at lest four hours before surgery) - Take the following medications as scheduled the night before surgery: Gabapentin (Neurontin), 300 MG PO BID Oxycodone/Acetaminophen 5MG/325MG (Percocet 5MG/325MG), 1-2 TABLETS PO for Pain (if needed) Tramadol (Ultram), 50 MG PO Q4H PRN for Pain (if needed) If you have any questions please call us at [phone] or [phone] or [phone]
--- NOTE | 2017-09-20 17:06 | DIAGNOSTIC IMAGING REPORT ---
CHEST 2 VIEWS ROUTINE CLINICAL HISTORY: 72 years-old Male presenting with preoperative assessment, cough, history of open heart surgery. TECHNIQUE: PA and lateral views of the chest were obtained. COMPARISON: 02/16/2017. FINDINGS: Median sternotomy wires. Atherosclerosis of the aortic arch. Cardiac silhouette normal in size. Lungs and pleural spaces clear. Osteopenia suspected. Posttraumatic deformity of the distal left clavicle. Upper abdomen normal. IMPRESSION: 1. No acute cardiopulmonary disease. Electronically signed by: Collin oMrris M.D. 09/20/2017 5:05 PM Dictated Date/Time: 09/20/2017 5:03 PM
[~2017-09-25] VITALS: Ht 170.2 cm; Wt 68.9 kg
[~2017-09-25 07:39] MED LIST changes: -AMIO200T4 PO; +CIPROFLOXACIN / D5W 400 MG IV SCH; +LACTATED RINGER'S 1000ML 1,000 ML IV SCH; +LECITHIN PO; +OXYC-57 PO; -OXYC1TAB3 PO
[2017-09-25] MEDS ORDERED: ATROPINE SULFATE 0.1 MG/ML 5ML SYR IV PRN (07:45)
[2017-09-25] MEDS ORDERED: FENTANYL CITRATE INJ 50 MCG/1 ML 2 ML VIAL IV PRN (07:45)
[2017-09-25] MEDS ORDERED: ONDANSETRON INJ 2 MG/ML 2 ML VIAL IV PRN (07:45)
[2017-09-25] MEDS ORDERED: HYDROmorphone INJ 0.5 MG/0.5 ML SYR IV PRN (07:45)
[2017-09-25] MEDS ORDERED: EpHEDrine SULFATE INJ 50 MG/ML AMP IV PRN (07:45)
[2017-09-25] MEDS ORDERED: PHENYLEPHRINE 100MCG/ML 5ML SYR IV PRN (07:45)
[2017-09-25 08:13] VITALS: BP 134/90; PULSE 58; TEMP 36.6; O2SAT 99; Ht 170.2 cm; Wt 68.9 kg
[2017-09-25] MEDS ORDERED: FENTANYL CITRATE INJ 50 MCG/1 ML 2 ML VIAL ONE (09:37)
[2017-09-25] MEDS ORDERED: ONDANSETRON INJ 2 MG/ML 2 ML VIAL ONE (09:37)
[2017-09-25] MEDS ORDERED: LIDOCAINE HCL 2% 2 ML VIAL (20MG/ML) ONE (09:37)
[2017-09-25] MEDS ORDERED: PROPOFOL IV EMULSION 10 MG/ML 20 ML VIAL ONE (09:37)
[2017-09-25] MEDS ORDERED: DEXAMETHASONE SOD INJ 4 MG/ML VIAL ONE (09:37)
[2017-09-25] MEDS ORDERED: MIDAZOLAM HCL 1 MG/ML 2ML VIAL ONE (09:38)
[2017-09-25] MEDS ORDERED: Cysto-Conray II 17.2% 250ML BOTTLE ONE (10:02)
[2017-09-25] MEDS ORDERED: PHEN-775 PO (10:10)
[2017-09-25] MEDS ORDERED: OXYC7.5T65 PO (10:10)
[2017-09-25] MEDS ORDERED: CIPR-255 PO (10:10)
--- NOTE | 2017-09-25 10:11 | Discharge Instructions ---
Discharge Instructions Date of Service September 25, 2017. Admission Reason for Admission: Nephrolithiasis Discharge Discharge Diagnosis / Problem: Stone, Left Discharge Goals Goal(s): Decrease discomfort, Improve function Activity Recommendations Activity Limitations: resume your previous activity Lifting Limitations: gradually increase as tolerated Exercise/Sports Limitations: gradually increase as tolerated Shower/Bathe: no limitations . Instructions / Follow-Up Instructions / Follow-Up May have blood in urine. May have pelvic discomfort. Call if any fevers or chills. Call for any issues. Follow up in 2 weeks for stent removal. Current Hospital Diet Patient's current hospital diet: Discharge Diet Recommended Diet: Regular Diet Procedures Procedures Performed: Cystoscopy, Left Ureteroscopy, Laser Lithotripsy, Stone Extraction Basket, Retrograde Pyelogram, Stent Placement. Pending Studies Studies pending at discharge: no Medical Emergencies . Who to Call and When: Medical Emergencies: If at any time you feel your situation is an emergency, please call 911 immediately. . Non-Emergent Contact Non-Emergency issues call your: Primary Care Provider, Urologist Call Non-Emergent contact if: you have a fever, temperature is above 101, your pain is not controlled, your pain is worsening, your pain is unusual for you . . "Provider Documentation" section prepared by Hernán Macario,. .
[2017-09-25] MEDS ORDERED: OXYCODONE/ACETAMINOPHEN 7.5-325 TAB PO PRN (10:15)
[2017-09-25] MEDS ORDERED: EpHEDrine SULFATE 50MG/5ML SYR ONE (10:53)
[2017-09-25] MEDS ORDERED: PHENYLEPHRINE 100MCG/ML 5ML SYR ONE (10:53)
--- NOTE | 2017-09-25 11:14 | [facility] Operative Report ---
Operative Report Operative Date September 25, 2017. Pre-Operative Diagnosis Left Stone Post-Operative Diagnosis Same Procedure(s) Performed Cystoscopy, Left Ureteroscopy, Laser Lithotripsy, Stone Extraction Basket, Retrograde Pyelogram, Stent Placement. Surgeon Renaldo Estimated Blood Loss Minimal Findings Left Ureteral Stone. Partial duplicated left ureter. Specimens Stone Fragment Drains 6 Fr Multilength Anesthesia Type General Complication(s) none Disposition Recovery Room / PACU Indications Obstructing left stone with hydronephrosis. Risks and benefits discussed. Description of Procedure Patient was consented and brought back to the operating room. Patient was placed under anesthesia in the supine position and moved to the dorsal lithotomy position. Patient was prepped and draped in the regular sterile fashion. A time out was completed. A 30degree Cystoscope was placed into the bladder and the entire bladder was examined. The UO's were identified. A retrograde pyelogram was completed and a wire was placed. A rigid ureteroscope was then placed. The scope was taken into the proximal ureter and the area assessed. The stone was identified and pulverized to dust and small fragments with the laser. The entire ureter was examined. A larger fragment was grasped and removed.A retrograde was completed through the scope to highlight the pelvis. Of note, patient had a partially duplicated system. The scope was removed assessing the entire length of the ureter and the wire remaining in place. With the wire in place, a 6 Fr Multilength Double J stent was placed. This was placed in the lower pole of the two systems. It was confirmed with fluoroscopy. With the stent in place, the bladder was emptied. The scope was removed. The patient was cleaned, aroused from anesthesia, and transferred to the pacu in stable condition having tolerated the procedure well with no complications. I was present and participated in all aspects of the procedure. The patient will be monitored in the PACU until transferred. I attest to the content of the Intraoperative Record and any orders documented therein. Any exceptions are noted below.
--- NOTE | 2017-09-25 11:52 | Anesthesiology Progress Note ---
Anesthesia Post Op Note Date & Time September 25, 2017 at 11:52 Vital Signs Pain Intensity: 0 Vital Signs Past 12 Hours Date Time Temp Pulse Resp B/P (MAP) Pulse Ox O2 Delivery O2 Flow Rate FiO2 09/25/17 11:40 59 16 101/88 98 Oxymask 3 09/25/17 11:30 55 16 117/60 98 Oxymask 5 09/25/17 11:21 36.0 56 16 111/56 98 Oxymask 5 09/25/17 08:13 36.6 58 18 134/90 (105) 99 Room Air Notes Mental Status: alert / awake / arousable, participated in evaluation Pt Amnestic to Procedure: Yes Nausea / Vomiting: adequately controlled Pain: adequately controlled Airway Patency, RR, SpO2: stable & adequate BP & HR: stable & adequate Hydration State: stable & adequate Anesthetic Complications: no major complications apparent
[2017-09-25 12:03] VITALS: BP 98/57; PULSE 77; TEMP 36.3; O2SAT 96
[2017-09-25 12:33] VITALS: BP 102/55; PULSE 51; TEMP 36.2; O2SAT 97
--- NOTE | 2017-09-25 12:48 | DIAGNOSTIC IMAGING REPORT ---
RETROGRADE INCLUDES KUB CLINICAL HISTORY: LEFT LASER AND STENT PLACEMENT COMPARISON STUDY: CT of the abdomen and pelvis September 12, 2017 and KUB September 14, 2017. Fluoroscopy time: 3 minutes and 9 seconds. FINDINGS: 7 fluoroscopic images were submitted for interpretation from left retrograde exam. These images demonstrate cannulation of the left ureter with placement of a left ureteral stent which appears appropriately positioned. Spinal hardware is incidentally noted. IMPRESSION: Fluoroscopic images from left retrograde exam with placement of a left ureteral stent. Electronically signed by: Layo Mora M.D. 09/25/2017 12:47 PM Dictated Date/Time: 09/25/2017 12:45 PM
[2017-09-25 13:30] VITALS: BP 91/44; PULSE 48; TEMP 36.3; O2SAT 96
[2017-09-25 14:30] VITALS: BP 100/57; PULSE 55; TEMP 36.4; O2SAT 98
== END 2017-09-25 14:55 | disposition home or self-care (01) ==
LOC: C.ACU 07:39
PROVIDERS: ATTEND Urology
DX: N20.2 Calculus of kidney with calculus of ureter (principal); Z95.3 Presence of xenogenic heart valve; Z79.1 Long term (current) use of non-steroidal anti-inflammatories (NSAID); I34.1 Nonrheumatic mitral (valve) prolapse; I48.91 Unspecified atrial fibrillation; N40.0 Benign prostatic hyperplasia without lower urinary tract symptoms; M17.10 Unilateral primary osteoarthritis, unspecified knee; M13.0 Polyarthritis, unspecified; Z82.62 Family history of osteoporosis; Z80.52 Family history of malignant neoplasm of bladder; Z87.891 Personal history of nicotine dependence; Z79.82 Long term (current) use of aspirin

== ENCOUNTER 2017-09-28 06:01 | Inpatient (IN) | payer BC, OTHER ==
[2017-09-20 15:41] VITALS: BMI 23.0
[2017-09-28] VITALS (9 sets, daily range): BP systolic 98–139; BP diastolic 49–70; PULSE 54–84; TEMP 36.4–36.8; O2SAT 93–98; Ht 170.2 cm; Wt 68.9 kg
[~2017-09-28] VITALS: Ht 170.2 cm; Wt 68.9 kg
[~2017-09-28 06:01] MED LIST changes: +CIPR-255 PO; -CIPROFLOXACIN / D5W 400 MG IV SCH; +OXYC7.5T65 PO; +PHEN-775 PO
[2017-09-28] MEDS ORDERED: FENTANYL CITRATE INJ 50 MCG/1 ML 2 ML VIAL ONE ×3 (06:41→10:25)
[2017-09-28] MEDS ORDERED: MIDAZOLAM HCL 1 MG/ML 2ML VIAL ONE (06:41)
[2017-09-28] MEDS ORDERED: EpHEDrine SULFATE INJ 50 MG/ML AMP IV PRN (06:45)
[2017-09-28] MEDS ORDERED: ATROPINE SULFATE 0.1 MG/ML 5ML SYR IV PRN (06:45)
[2017-09-28] MEDS ORDERED: FENTANYL CITRATE INJ 50 MCG/1 ML 2 ML VIAL IV PRN (06:45)
[2017-09-28] MEDS ORDERED: ONDANSETRON INJ 2 MG/ML 2 ML VIAL IV PRN (06:45)
[2017-09-28] MEDS ORDERED: BACITRACIN 50000 UNIT VIAL ONE (07:03)
[2017-09-28] MEDS ORDERED: BUPIVACAINE 0.5 % 5 MG/1 ML MPF 30ML VIAL ONE ×2 (07:03→07:41)
[2017-09-28] MEDS ORDERED: ALBUMIN HUMAN 5% 12.5 GM/250 ML VIAL IV ONE (07:14)
--- NOTE | 2017-09-28 07:34 | History and Physical ---
History & Physical Date September 28, 2017. Chief Complaint Back and leg pain History of Present Illness The patient is a 72 year old male with complaints of back and leg pain Past Medical/Surgical History Medical Problems: (1) Lower abdominal pain (2) Lumbar stenosis with neurogenic claudication (3) Mitral valve prolapse (4) Pneumonia (5) S/P hernia repair Additional History Hepatic Disease: No Endocrine Disorder: No Kidney Disease: No Hypertension: Yes Heart Disease: No Bleeding Tendencies: No Infectious Diseases: No Allergies Coded Allergies: No Known Drug Allergy (Verified Allergy, Unknown, NKDA, 09/28/17) Home Medications Scheduled Apixaban (Eliquis), 5 MG PO BID Aspirin (Aspirin Ec), 81 MG PO QAM Diltiazem Hcl Extended Release (Diltiazem Hcl Er), 120 MG PO QAM Gabapentin (Neurontin), 300 MG PO BID Glucosamine-Chondroitin (Osteo Bi-Flex Regular Str), 1 TABLETS PO BID Metoprolol Succinate (Toprol Xl), 25 MG PO QAM Multivitamin (Multivitamin), 1 TAB PO QAM Phenazopyridine Hcl (Pyridium), 200 MG PO TID Tamsulosin Hcl (Flomax), 0.4 MG PO QAM [Lecithin], 1 TAB PO QAM Scheduled PRN Oxycodone/Acetaminophen 5MG/325MG (Percocet 5MG/325MG), 1-2 TABLETS PO for Pain Oxycodone/Acetaminophen 7.5MG/325MG (Percocet 7.5MG/325MG), 1 TAB PO Q4 PRN for Pain Tramadol (Ultram), 50 MG PO Q4H PRN for Pain Physical Examination Skin: warm/dry, no rash Eyes: normal inspection, EOMI, sclerae normal ENT: normal ENT inspection, pharynx normal Head: normocephalic, atraumatic Neck: supple, no adenopathy, trachea midline Respiratory/Chest: lungs clear, normal breath sounds, no respiratory distress Cardiovascular: regular rate, rhythm, no edema, no murmur Abdomen / GI: normal bowel sounds, non tender Back: normal inspection Extremities: normal inspection, normal range of motion Neurologic/Psych: no motor/sensory deficits, alert, normal reflexes, oriented x 3 Diagnosis Lumbar spinal stenosis with neurogenic claudication Plan of Treatment Removal of hardware L3-S1 decompression L1-L3 fusion T12 S1 with possible iliac bolts
[2017-09-28] MEDS ORDERED: CEFAZOLIN SOD 2000MG/15 ML IV PUSH ONE (07:39)
[2017-09-28] MEDS ORDERED: EpINEphrine INJ 1MG/ML AMP 1 MG/ML AMP ONE (07:52)
[2017-09-28] MEDS ORDERED: HYDROmorphone INJ 2 MG/ML SYR/VIAL ONE (08:14)
[2017-09-28] MEDS ORDERED: DEXAMETHASONE SOD INJ 4 MG/ML VIAL ONE (08:37)
[2017-09-28] MEDS ORDERED: PROPOFOL IV EMULSION 10 MG/ML 20 ML VIAL ONE (08:37)
[2017-09-28] MEDS ORDERED: LIDOCAINE HCL 2% 2 ML VIAL (20MG/ML) ONE (08:37)
[2017-09-28] MEDS ORDERED: ONDANSETRON INJ 2 MG/ML 2 ML VIAL ONE ×2 (08:37→11:01)
[2017-09-28] MEDS ORDERED: SODIUM CHLORIDE 0.9% 1000ML 1,000 ML IV SCH (10:26)
--- NOTE | 2017-09-28 10:26 | [facility] Operative Report ---
Operative Report Operative Date September 28, 2017. Pre-Operative Diagnosis Lumbar Spinal Stenosis with neurogenic claudication Post-Operative Diagnosis Lumbar Spinal Stenosis with neurogenic claudication Procedure(s) Performed 1. Removal of posterior segmental instrumentation L3-S1. #2 expiration of fusion L3 S1. #3 lumbar decompression medial facetectomies foraminotomies L1-L2 3. #4 posterior spinal fusion T12-L4. #5 placed a posterior segmental instrumentation T12-S1. #6 interbody fusion L2-3. #7 placement of titanium cage 11 x 26 mm at L2-3. #8 placement of locally harvested autograft in the posterior lateral gutters. #9 placement InFUSE collagen sponge, mass graft in the posterior gutters and ostial amp bone graft in the interbody space. Surgeon Dr. Bah Rotary Shear Operator Surgeon(s) Cookie Cuevas PA-C Estimated Blood Loss 575 ml Findings Severe spinal stenosis Specimens Permanent Specimen: A: Explanted Lumabr Hardware Anesthesia Type General Description of Procedure Patient was met with preoperatively case discussed all questions addressed. After informed consent obtained patient was taken to the operative suite underwent intubation and placed in prone position on the Fausto table on top of the Juan Antonio frame. All bony prominences well-padded eyes inspected to ensure no external pressure placed upon. This point the lumbar spine was prepped and draped in normal sterile fashion. Sharp dissection with the assistance of Bovie cautery was performed down to and exposing the lamina and transverse processes of T12 L1-L2-L3 and instrumentation at L3-4-5 and S1 levels bilaterally. Then proceeded to remove the hardware bilaterally exploring the fusion mass noted to be intact. Then performed a complete laminectomy of L2 and L1 from a caudal to cephalad fashion. Address severe lateral recess and foraminal stenosis. Pedicle screws were then placed in T12-L1 L2-L3-L4 L5-S1 levels with the assistance of fluoroscopy and appropriate size ella placed. Through a transforaminal approach and left complete discectomy of L2 through was performed endplates curetted to subcortical bleeding bone and an 11 x 26 mm titanium cage filled with ostium bone graft tapped in position. The rods were then locked in final position. Cross-link was locked into position. The transverse processes of T12-L1 L2-L3-L4 burred to subcortical bleeding bone. Infuse collagen sponge master graft and local autograft placed in the posterior gutters. 15 round LEO drain inserted. Incision was then closed with 1 Vicryl fascia 2-0 Vicryl subcutaneous and 4 Monocryl for fashion closure Steri-Strips sterile dressings placed. Patient will continue PACU stable condition. Please note Cookie López was present at the entire procedure involved in patient positioning complex portions of the surgery and fashion closure. I attest to the content of the Intraoperative Record and any orders documented therein. Any exceptions are noted below.
[2017-09-28] MEDS ORDERED: SOD PHOSPHATE/SOD BIPHOSPHATE ENEMA 132 ML BTL PR PRN (10:30)
[2017-09-28] MEDS ORDERED: ACETAMINOPHEN IV 100 ML IV PRN (10:30)
[2017-09-28] MEDS ORDERED: PROMETHAZINE HCL INJ 12.5 MG in SODIUM CHLORIDE 0.9% 50ML 50 ML IV PRN (10:30)
[2017-09-28] MEDS ORDERED: FAMOTIDINE 20 MG TAB PO PRN (10:30)
[2017-09-28] MEDS ORDERED: METOCLOPRAMIDE HCL INJ 5 MG/ML 2 ML VIAL IV PRN (10:30)
[2017-09-28] MEDS ORDERED: MAGNESIUM HYDROXIDE SUSP 30 ML UDC PO PRN (10:30)
[2017-09-28] MEDS ORDERED: DO NOT ADMINISTER FLU VACCINE PRN (10:30)
[2017-09-28] MEDS ORDERED: LORAZEPAM INJ 0.5 MG in SYRINGE 0 ML IV PRN (10:30)
[2017-09-28] MEDS ORDERED: NALOXONE HCL 0.4 MG/1 ML VIAL/CARP IV PRN ×2 (10:30)
[2017-09-28] MEDS ORDERED: hydrOXYzine HCL 25 MG TAB PO PRN (10:30)
[2017-09-28] MEDS ORDERED: BISACODYL 10 MG SUPP PR PRN (10:30)
[2017-09-28] MEDS ORDERED: LORAZEPAM 0.5 MG TAB PO PRN (10:30)
[2017-09-28] MEDS ORDERED: HYDROmorphone HCL 0.5MG/ML 50 ML CASSETTE IV PRN (10:30)
[2017-09-28] MEDS ORDERED: DO NOT ADMINISTER PNEUMOCOCCAL VACCINE PRN (10:30)
--- NOTE | 2017-09-28 10:33 | DIAGNOSTIC IMAGING REPORT ---
LUMBAR SPINE 2 OR 3 VIEW HISTORY: 72 years-old Male L3-S1 REMOVE HARDWARE/T12-S1 POSSIBLE BOLTS status post hardware removal COMPARISON: CT abdomen and pelvis 09/12/2017 TECHNIQUE: 4 spot fluoroscopic images of the lumbar spine were obtained utilizing 25.2 seconds fluoroscopy time FINDINGS: Discectomy changes at L4-L5. Posterior ella and screw fusion hardware extends from T12-S1, previously there was posterior fusion hardware extending from L2-S1. Interval discectomy changes at L2-L3. Alignment is satisfactory. Catheter device projects over the right abdomen on the last image. IMPRESSION: Fluoroscopic assistance as above. Please see operative report for further details. The above report was generated using voice recognition software. It may contain grammatical, syntax or spelling errors. Electronically signed by: Andre Gutierrez M.D. 09/28/2017 10:31 AM Dictated Date/Time: 09/28/2017 10:29 AM
[2017-09-28] MEDS ORDERED: FLOSEAL HEMOSTATIC MATRIX 10ML TOP ONE (10:40)
[2017-09-28] MEDS ORDERED: HYDROmorphone HCL 0.5MG/ML 50 ML CASSETTE ONE (10:52)
[2017-09-28] MEDS ORDERED: PHENYLEPHRINE 100MCG/ML 5ML SYR ONE (11:01)
[2017-09-28] MEDS ORDERED: EpHEDrine SULFATE 50MG/5ML SYR ONE (11:01)
[2017-09-28] MEDS ORDERED: NEOSTIGMINE METHYLSULFATE 1 MG/ML 10ML VIAL ONE (11:01)
[2017-09-28] MEDS ORDERED: GLYCOPYRROLATE INJ 0.2 MG/ML VIAL ONE (11:01)
--- NOTE | 2017-09-28 11:51 | Anesthesiology Progress Note ---
Anesthesia Post Op Note Date & Time September 28, 2017 at 11:51 Vital Signs Pain Intensity: 0 Vital Signs Past 12 Hours Date Time Temp Pulse Resp B/P (MAP) Pulse Ox O2 Delivery O2 Flow Rate FiO2 09/28/17 11:40 60 16 93/50 95 Nasal Cannula 3 09/28/17 11:30 36.3 62 16 98/48 95 Nasal Cannula 3 09/28/17 11:20 65 16 100/51 95 Oxymask 3 09/28/17 11:10 65 14 96/55 98 Oxymask 3 09/28/17 11:00 70 14 113/53 99 Oxymask 5 09/28/17 10:51 36.2 73 14 113/57 93 Oxymask 5 09/28/17 06:28 36.8 58 20 139/70 96 Room Air Notes Mental Status: alert / awake / arousable, participated in evaluation Pt Amnestic to Procedure: Yes Nausea / Vomiting: adequately controlled Pain: adequately controlled Airway Patency, RR, SpO2: stable & adequate BP & HR: stable & adequate Hydration State: stable & adequate Anesthetic Complications: no major complications apparent
[2017-09-28] MEDS: SODIUM CHLORIDE 0.9% 1000ML 1,000 ML IV SCH ×2 (12:54→18:41)
[2017-09-28] MEDS ORDERED: METOPROLOL TARTRATE 1 MG/ML VIAL IV PRN (13:45)
[2017-09-28] MEDS ORDERED: PHENAZOPYRIDINE HCL 200 MG TAB PO PRN (14:00)
--- NOTE | 2017-09-28 14:01 | Medical Consult ---
History General Date of Service: September 28, 2017. Stated Complaint: Lumbar Spinal Stenosis HPI The patient is a 72 year old male who presents to [facility] with complaints of Lumbar Spinal Stenosis. The patient's primary care provider is Bernardino Flor M.D.. This is the patient's third lumbar surgery most recently having . Most recently has had left radicular neuropathy and some pain and weakness of his left hip he underwent a T12 S1 decompression fusion and removal of previous hardware Patient doing well postoperatively has a HAND MICA PLATE LAYER in place he says he is feeling some improved sensation to his left leg Most recently had a problem with a left renal stone causing hematuria. He is chronically anticoagulated at least for the next short-term future with Eliquis due to history of atrial fibrillation and flutter which occurred surrounding his most recent bioprosthetic mitral valve replacement. His valve was replaced January 2017 as well as a left atrial ligation and subsequent to that he developed atrial flutter which was electrically cardioverted May 04, 2017. His most recent cardiac office visit in August suggest him to be on 3 more months of Eliquis therapy however he does remain in sinus rhythm Historian: patient, family, other (Review of outpatient records) Review of Systems ROS: well nourished well developed. No double vision blurry vision No problems with speech or swallowing No palpitations, chest pain or pressure No Wheezing or breathing issues No abdominal pain nausea vomiting diarrhea changes in appetite or weight No burning urine urine frequency or changes in color No focal joint pain or is of some left hip girdle pain No skin rashes or oral lesions No unusual bruising or bleeding Has some left leg paresthesias and decreased left hip girdle strength No changes in memory or confusion Past Medical History Past Medical History: Mitral regurgitation with mitral valve replacement January 2017 Previous pneumonia Left ureteral stone Status post hernia repair Atrial fib atrial flutter Diverticulosis Family History Cancer Family history is positive for osteoarthritis in his mother and bladder cancer his father Social History Hx Tobacco Use In Past Year?: No (SMOKED PIPE QUIT 1989) Smoking Status: Former Smoker Alcohol: socially Marital status: Occupational Status: unemployed Immunizations History of Influenza Vaccine: Unknown History of Tetanus Vaccine?: Unknown History of Pneumococcal: Unknown History of Hepatitis B Vaccine: Unknown History of MDRO History of MDRO: No Allergies Coded Allergies: No Known Drug Allergy (Verified Allergy, Unknown, NKDA, 09/28/17) Current Medications Reported Home Medications Medications Dose Route/Sig Max Daily Dose Days Date Category Dose Instructions Pyridium (Phenazopyridine Hcl) 200 Mg Tab 200 Mg PO TID 09/25/17 Rx Percocet 7.5MG/325MG (Oxycodone/Acetaminophen) Tab 1 Tab PO Q4 PRN 09/25/17 Rx [Lecithin] 1 Tab PO QAM 09/20/17 Reported Percocet 5MG/325MG (Oxycodone/Acetaminophen) Tab 1-2 Tablets PO PRN 09/20/17 Reported PAIN Flomax (Tamsulosin Hcl) 0.4 Mg Cap 0.4 Mg PO QAM 09/12/17 Reported Toprol Xl (Metoprolol Succinate) 25 Mg Tab 25 Mg PO QAM 08/25/17 Reported Multivitamin (Multivitamins) Tab 1 Tab PO QAM 05/04/17 Reported Ultram (Tramadol HCl) 50 Mg Tab 50 Mg PO Q4H PRN 05/04/17 Reported Eliquis (Apixaban) 5 Mg Tab 5 Mg PO BID 02/16/17 Reported Diltiazem Hcl Er (Diltiazem Hcl Extended Release) 120 Mg Cap 120 Mg PO QAM 02/16/17 Reported Aspirin Ec (Aspirin) 81 Mg Tab 81 Mg PO QAM 02/16/17 Reported Neurontin (Gabapentin) 300 Mg Cap 300 Mg PO BID 11/08/15 Reported Osteo Bi-Flex Regular Str (Glucosamine-Chondroitin) 1 Tab Tab 1 Tablets PO BID 05/17/13 Reported Physical Physical Exam Vital Signs: Date Time Temp Pulse Resp B/P (MAP) Pulse Ox O2 Delivery O2 Flow Rate FiO2 09/28/17 12:30 36.5 54 16 107/53 (71) 97 Nasal Cannula 3.0 09/28/17 12:00 36.4 71 20 103/50 (67) 97 Nasal Cannula 3.0 09/28/17 11:50 58 16 98/51 95 Nasal Cannula 3 09/28/17 11:40 60 16 93/50 95 Nasal Cannula 3 09/28/17 11:30 36.3 62 16 98/48 95 Nasal Cannula 3 09/28/17 11:20 65 16 100/51 95 Oxymask 3 09/28/17 11:10 65 14 96/55 98 Oxymask 3 09/28/17 11:00 70 14 113/53 99 Oxymask 5 09/28/17 10:51 36.2 73 14 113/57 93 Oxymask 5 09/28/17 06:28 36.8 58 20 139/70 96 Room Air General Appearance: WELL-APPEARING, WD/WN, uncomfortable Head: NORMOCEPHALIC, ATRAUMATIC Eyes: PERRLA, EOMI Neck: NORMAL RANGE OF MOTION, SUPPLE, NO THYROMEGALY Respiratory: BREATH SOUNDS NORMAL, CLEAR TO AUSCULTATION, CLEAR TO PERCUSSION Cardiovasular: REGULAR RATE/RHYTHM, NORMAL S1S2 Abdomen: NON TENDER, NORMAL BOWEL SOUNDS, NO REBOUND Upper Extremities: NO EDEMA, NO DEFORMITY Lower Extremities: NO EDEMA, NO DEFORMITY Neuro: ALERT, ORIENTED x 3, other (He cannot lift his left leg against gravity off the bed his right he can he has normal dorsiflexion and plantar flexion bilaterally) Psychiatric: NORMAL AFFECT, NO SUICIDAL IDEATION, CONTRACTS FOR SAFETY Diagnostics Labs Results Past 24 Hours Test 09/28/17 13:48 Range/Units Impression Assessment and Plan 72-year-old male with lumbar spinal revision for spinal stenosis with radicular symptoms T12 S1 Cardiac, the patient will continue on his diltiazem. Surgery has elected to start his aspirin on postop day 1 which will be 09/29 we will hold his Eliquis at this time until hemostasis is better achieved he does have a LEO drain in the surgical site and is quite full with serosanguineous liquid at this time. Patient also takes metoprolol for his cardiac issues and he will be offered as needed metoprolol if his heart rate goes above 120. We will also check his electrolytes this afternoon to make sure his potassium and magnesium are replete Given his recent ureteral stone the patient maintained on Flomax he is not to maintain on his Pyridium unless he has problems a Fernandez catheter is placed and there is a tea colored urine in a currently For his neuropathy he will continue on his Neurontin pain control be based upon a HAND MICA PLATE LAYER and oral oxycodone as written for by our surgical team DVT prevention is mechanical means at this time with reinstitution of Eliquis therapy when hemostasis is achieved at the surgical site Admit To Telemetry Code Status Level 1 - Full Code
[2017-09-28 14:32] LABS: CALCIUM 8.3 mg/dl (8.5-10.1); CREATININE 1.08 mg/dl (0.60-1.40); POTASSIUM 3.9 mmol/L (3.5-5.1)
[2017-09-28 14:33] LABS: HEMATOCRIT 32.5 % (42-52); HEMOGLOBIN 10.9 g/dL (14.0-18.0)
[2017-09-28] MEDS: CEFAZOLIN IV 1,000 MG in SYRINGE 0 ML IV SCH (16:16)
[2017-09-28] MEDS ORDERED: MAGNESIUM SULFATE 1GM / D5W 100 ML IV STA (18:06)
[2017-09-28] MEDS: DOCUSATE SODIUM/SENNA 50/8.6MG TAB PO SCH (21:39)
[2017-09-28] MEDS: GABAPENTIN 300 MG CAP PO SCH (21:39)
[2017-09-29] VITALS (9 sets, daily range): BP systolic 104–119; BP diastolic 52–71; PULSE 70–87; TEMP 36.6–37.4; O2SAT 92–98
[2017-09-29] MEDS: CEFAZOLIN IV 1,000 MG in SYRINGE 0 ML IV SCH (00:26)
[2017-09-29] MEDS: SODIUM CHLORIDE 0.9% 1000ML 1,000 ML IV SCH ×2 (02:25→08:22)
[2017-09-29] MEDS ORDERED: HYDROmorphone INJ 0.5 MG/0.5 ML SYR IV PRN (06:00)
[2017-09-29] MEDS ORDERED: DC PCA SCH (06:00)
[2017-09-29] MEDS ORDERED: TRAMADOL HCL 50 MG TAB PO PRN (06:00)
[2017-09-29 06:21] LABS: HEMATOCRIT 30.6 % (42-52); HEMOGLOBIN 10.4 g/dL (14.0-18.0); IG# 0.05 K/uL (0.00-0.02); LYMPH % 3.2 %; LYMPH ABS # 0.59 K/uL (1.2-3.4); MEAN CELL VOLUME 92.4 fL (80-100); MEAN CORPUSCULAR HEMOGLOBIN 31.4 pg (25-34); MEAN PLATELET VOLUME 9.5 fL (7.4-10.4); MONO % 10.5 %; MONO ABS # 1.93 K/uL (0.11-0.59); PLATELET COUNT 157 K/uL (130-400); RED CELL DISTRIBUTION WIDTH CV 13.9 % (11.5-14.5); RED CELL DISTRIBUTION WIDTH SD 47.2 fL (36.4-46.3); WHITE BLOOD COUNT 18.37 K/uL (4.8-10.8)
[2017-09-29 07:06] LABS: CALCIUM 8.6 mg/dl (8.5-10.1); CREATININE 0.76 mg/dl (0.60-1.40); POTASSIUM 4.1 mmol/L (3.5-5.1)
--- NOTE | 2017-09-29 07:45 | Progress Note ---
Subjective Date of Service: September 29, 2017. Subjective pt looks and feels well has had no other arrhythmia overnight. this pt is still with some left leg weakness Problem List Medical Problems: (1) Back pain Status: Acute (2) Compression fracture Status: Acute (3) Diverticulitis Status: Acute (4) Dyspnea Status: Acute (5) Fever Status: Acute (6) Hematuria Status: Acute (7) Leukocytosis Status: Acute (8) Lumbar radiculopathy, chronic Status: Acute (9) Pericardial effusion Status: Acute (10) Renal stone Status: Acute (11) Ureteral colic Status: Acute (12) Weakness of left lower extremity Status: Acute Social History Problems: (1) Status post heart valve repair Status: Acute Review of Systems Constitutional: No fever, No chills, No weakness Respiratory: No cough, No shortness of breath, No dyspnea on exertion Cardiac: No chest pain, No edema Abdomen: No pain, No nausea, No vomiting Musculoskeletal: No joint pain, No muscle pain Neurologic: No memory loss, No paralysis Psychiatric: No depression symptoms, No anhedonism Objective Vital Signs Date Time Temp Pulse Resp B/P (MAP) Pulse Ox O2 Delivery O2 Flow Rate FiO2 09/29/17 07:02 36.8 75 16 119/67 (84) 92 Room Air 09/29/17 04:00 92 Room Air 09/29/17 03:39 36.9 73 16 105/68 (80) 92 09/29/17 01:00 36.6 87 18 112/61 (78) 95 Room Air 09/29/17 00:01 95 Room Air 09/28/17 20:00 96 Room Air 09/28/17 19:48 36.8 84 20 107/58 (74) 96 09/28/17 17:02 36.7 75 20 108/54 (72) 98 Nasal Cannula 2.0 09/28/17 16:00 98 Nasal Cannula 2.0 09/28/17 14:00 36.5 59 17 98/49 (65) 93 Nasal Cannula 3.0 09/28/17 13:00 36.6 61 14 109/51 (70) 96 Nasal Cannula 3.0 09/28/17 12:30 36.5 54 16 107/53 (71) 97 Nasal Cannula 3.0 09/28/17 12:00 36.4 71 20 103/50 (67) 97 Nasal Cannula 3.0 09/28/17 11:50 58 16 98/51 95 Nasal Cannula 3 09/28/17 11:40 60 16 93/50 95 Nasal Cannula 3 09/28/17 11:30 36.3 62 16 98/48 95 Nasal Cannula 3 09/28/17 11:20 65 16 100/51 95 Oxymask 3 09/28/17 11:10 65 14 96/55 98 Oxymask 3 09/28/17 11:00 70 14 113/53 99 Oxymask 5 09/28/17 10:51 36.2 73 14 113/57 93 Oxymask 5 Physical Exam General Appearance: WD/WN, + mild distress Eyes: normal inspection, sclerae normal Neck: supple, no JVD Respiratory/Chest: chest non-tender, lungs clear, normal breath sounds Cardiovascular: regular rate, rhythm, + systolic murmur Abdomen: normal bowel sounds, non tender, soft Laboratory Results Last 24 Hours Test 09/28/17 13:48 09/29/17 06:03 Hemoglobin 10.9 g/dL 10.4 g/dL Hematocrit 32.5 % 30.6 % Sodium Level 139 mmol/L 141 mmol/L Potassium Level 3.9 mmol/L 4.1 mmol/L Chloride Level 104 mmol/L 107 mmol/L Carbon Dioxide Level 27 mmol/L 28 mmol/L Anion Gap 8.0 mmol/L 6.0 mmol/L Blood Urea Nitrogen 19 mg/dl 14 mg/dl Creatinine 1.08 mg/dl 0.76 mg/dl Est Creatinine Clear Calc Drug Dose 58.7 ml/min 83.4 ml/min Estimated GFR () 79.6 106.4 Estimated GFR (Non- 68.7 91.8 BUN/Creatinine Ratio 17.7 18.0 Random Glucose 193 mg/dl 154 mg/dl Calcium Level 8.3 mg/dl 8.6 mg/dl Magnesium Level 1.7 mg/dl White Blood Count 18.37 K/uL Red Blood Count 3.31 M/uL Mean Corpuscular Volume 92.4 fL Mean Corpuscular Hemoglobin 31.4 pg Mean Corpuscular Hemoglobin Concent 34.0 g/dl Platelet Count 157 K/uL Mean Platelet Volume 9.5 fL Neutrophils (%) (Auto) 86.0 % Lymphocytes (%) (Auto) 3.2 % Monocytes (%) (Auto) 10.5 % Eosinophils (%) (Auto) 0.0 % Basophils (%) (Auto) 0.0 % Neutrophils # (Auto) 15.80 K/uL Lymphocytes # (Auto) 0.59 K/uL Monocytes # (Auto) 1.93 K/uL Eosinophils # (Auto) 0.00 K/uL Basophils # (Auto) 0.00 K/uL RDW Standard Deviation 47.2 fL RDW Coefficient of Variation 13.9 % Immature Granulocyte % (Auto) 0.3 % Immature Granulocyte # (Auto) 0.05 K/uL Assessment and Plan 72-year-old male with lumbar spinal revision for spinal stenosis with radicular symptoms T12 S1 Cardiac good blood pressure and rate control with metoprolol and diltiazem. restart his aspirin 09/29 continue to hold his Eliquis until LEO drain output lessens recent ureteral stone continues on Flomax without symptoms, Fernandez catheter is placed For his neuropathy he will continue on his Neurontin pain control be based upon a SHEET METAL ERECTOR and oral oxycodone as written for by our surgical team DVT prevention is mechanical means at this time with reinstitution of Eliquis therapy when hemostasis is achieved at the surgical site
--- NOTE | 2017-09-29 08:13 | Clinical Documentation Query ---
NATALI Huang : CLINICAL DOCUMENTATION QUERY Patient is a 72 year old male who on 09/28 underwent removal of prior instrumentation, lumbar decompression, thoracosacral instrumented posterior fusion, lumbar interbody fusion. H&H 4 was 14.1 g/dl and 41.6%. POD #1, repeat values are 10.4 g/dl and 30.6%. EBL for the procedure was 575 ml's with subsequent losses totaling an additional 780 ml's to date. He is being monitored with serial hematology and I/O. In your clinical opinion is this patient being managed for: ( x ) Acute blood loss anemia ( ) Not Agree ( ) Other explanation of clinical findings (No explanation is considered a No Response) ( ) Unable to determine ( ) Need to Discuss (Phone CDS or qliq) (No discussion is considered a No Response) The medical record reflects the following clinical findings, treatment, and risk factors. Clinical Indicators: As above Treatment: He is being monitored with serial hematology and I/O. Risk Factors: Acute perioperative blood losses. Please clarify and document your clinical opinion in the progress notes and discharge summary. Terms such as "probable", "suspected", "likely", "questionable", "possible", or "still to be ruled out" are acceptable. IF IN AGREEMENT, YOU MUST DOCUMENT ABOVE DIAGNOSTIC STATEMENT IN DAILY PROGRESS NOTES AND DISCHARGE SUMMARY. This document is not part of the patient's record. Thank You, Devaughn David, MYRON [phone]
[2017-09-29] MEDS: DILTIAZEM HCL 120 MG EXT REL CAP PO SCH (08:21)
[2017-09-29] MEDS: ALUMINUM/MAGNESIUM SUSP 30 ML UDC PO PRN ×2 (08:21→19:06)
[2017-09-29] MEDS: TAMSULOSIN HCL 0.4 MG CAP PO SCH (08:21)
[2017-09-29] MEDS: METOPROLOL SUCC 25MG EXT REL TAB PO SCH (08:21)
[2017-09-29] MEDS: GABAPENTIN 300 MG CAP PO SCH ×2 (08:21→20:34)
[2017-09-29] MEDS: ASPIRIN 81 MG ECTAB PO SCH (08:22)
[2017-09-29] MEDS: OXYCODONE HCL IR 5 MG TAB (IMMEDIATE RELEASE) PO PRN ×3 (09:43→20:34)
[2017-09-29] MEDS ORDERED: NURSING VERBAL MED ORDER ONE (13:45)
--- NOTE | 2017-09-29 14:26 | Progress Note ---
Progress Note Date of Service September 29, 2017. Progress Note Patient's back pain is controlled. He denies any leg pain. Still significant weakness to the left quadricep. On exam he is in the chair at the bedside comfortable. He does have weakness to testing left quadricep. Otherwise doing well. Assessment status post lumbar depression fusion per plan at this time will initiate physical therapy occupational therapy and are strongly considering [facility] his rehab facility upon discharge.
[2017-09-29] MEDS: DOCUSATE SODIUM/SENNA 50/8.6MG TAB PO SCH (20:34)
[2017-09-30] MEDS: POLYETHYLENE (MIRALAX) 17 GM PACK PO SCH ×4 (05:23→23:27)
[2017-09-30 06:34] VITALS: BP 120/72; PULSE 65; TEMP 36.5; O2SAT 98
[2017-09-30] MEDS: OXYCODONE HCL IR 5 MG TAB (IMMEDIATE RELEASE) PO PRN ×3 (07:59→23:27)
[2017-09-30] MEDS: GABAPENTIN 300 MG CAP PO SCH ×2 (08:00→20:33)
[2017-09-30] MEDS: DILTIAZEM HCL 120 MG EXT REL CAP PO SCH (08:00)
[2017-09-30] MEDS: TAMSULOSIN HCL 0.4 MG CAP PO SCH (08:00)
[2017-09-30] MEDS: METOPROLOL SUCC 25MG EXT REL TAB PO SCH (08:00)
[2017-09-30] MEDS: ASPIRIN 81 MG ECTAB PO SCH (08:00)
[2017-09-30] MEDS ORDERED: BISACODYL 10 MG SUPP PR STA (09:07)
[2017-09-30 10:09] VITALS: BP 118/68
--- NOTE | 2017-09-30 11:06 | Progress Note ---
Progress Note Date of Service September 30, 2017. Progress Note Patient's back pain is controlled. He has no leg pain. Still struggling with significant weakness to the left quadricep. On exam he is in a chair at the bedside appears comfortable. Still weakness to the left quad testing. Assessment status post lumbar depression fusion per plan at this time he is agreeable to [facility]. Clearly he would benefit with intense rehab in light of his weakness. He is a very compliant patient in route will respond positively to therapy. Subsequently we will try to arrange [facility] the next day or so for discharge.
[2017-09-30 15:00] VITALS: BP 105/61; PULSE 90; TEMP 36.8; O2SAT 96
--- NOTE | 2017-09-30 15:03 | Progress Note ---
Subjective Date of Service: September 30, 2017. Subjective this pt is doing well, still with limitations with regard to his walking Problem List Medical Problems: (1) Back pain Status: Acute (2) Compression fracture Status: Acute (3) Diverticulitis Status: Acute (4) Dyspnea Status: Acute (5) Fever Status: Acute (6) Hematuria Status: Acute (7) Leukocytosis Status: Acute (8) Lumbar radiculopathy, chronic Status: Acute (9) Pericardial effusion Status: Acute (10) Renal stone Status: Acute (11) Ureteral colic Status: Acute (12) Weakness of left lower extremity Status: Acute Social History Problems: (1) Status post heart valve repair Status: Acute Review of Systems Constitutional: + weakness, + fatigue, No fever, No chills Respiratory: No cough, No shortness of breath Cardiac: No chest pain, No edema Abdomen: No pain, No nausea, No vomiting, No diarrhea Musculoskeletal: + joint pain, + muscle pain Psychiatric: No depression symptoms, No anhedonism Objective Vital Signs Date Time Temp Pulse Resp B/P (MAP) Pulse Ox O2 Delivery O2 Flow Rate FiO2 09/30/17 07:35 Room Air 09/30/17 06:34 36.5 65 17 120/72 (88) 98 Room Air 09/29/17 23:35 37.4 70 19 106/56 (73) 97 Room Air 09/29/17 23:35 Room Air 09/29/17 23:03 Room Air 09/29/17 16:00 Room Air 09/29/17 15:41 36.7 72 16 109/52 (71) 98 Room Air Physical Exam General Appearance: WD/WN, + mild distress Eyes: normal inspection, sclerae normal Neck: supple, no JVD Respiratory/Chest: chest non-tender, lungs clear, normal breath sounds Cardiovascular: regular rate, rhythm, no murmur Abdomen: normal bowel sounds, non tender, soft Neurologic/Psychiatric: alert, oriented x 3 Assessment and Plan 72-year-old male with lumbar spinal revision for spinal stenosis with radicular symptoms T12 S1 Continues with good blood pressure and rate control with metoprolol and diltiazem. restarted his aspirin 09/29 continue to hold his Eliquis until LEO drain out recent ureteral stone continues on Flomax without symptoms, Fernandez catheter is placed For his neuropathy he will continue on his Neurontin pain control be based upon a DERRICK HAND and oral oxycodone as written for by our surgical team DVT prevention is mechanical means at this time with reinstitution of Eliquis therapy when hemostasis is achieved at the surgical site with his leg weakness will consider rehab placement but up to primary team
[2017-09-30] MEDS: DOCUSATE SODIUM/SENNA 50/8.6MG TAB PO SCH (20:33)
[2017-09-30 22:52] VITALS: BP 97/58; PULSE 74; TEMP 37; O2SAT 97
[2017-10-01] MEDS: POLYETHYLENE (MIRALAX) 17 GM PACK PO SCH ×3 (05:23→18:00)
[2017-10-01] MEDS: OXYCODONE HCL IR 5 MG TAB (IMMEDIATE RELEASE) PO PRN ×3 (05:26→17:41)
[2017-10-01 07:40] VITALS: BP 102/67; PULSE 93; TEMP 37.4; O2SAT 97
--- NOTE | 2017-10-01 08:21 | Orthopedic Progress Note ---
Orthopedic Progress Note Date of Service October 01, 2017. Subjective Post OP Day: 3 Reports: feeling well Additional Notes: Patient is postoperative day 3 multilevel thoracolumbar decompression fusion. He has only back pain. No radicular pain. Still considerable weakness on the left quadricep. History and physical therapy ambling roughly 16 feet. LEO drain output last shift was 10 cc. He has had a bowel movement. No new complaints. Objective calves soft nontender, A&O x3 Lumbar dressing is saturated with serosanguineous fluid. Lower extremities he has considerable left quadricep weakness. Unchanged. Calves are soft nontender bilaterally. Date Time Temp Pulse Resp B/P (MAP) Pulse Ox O2 Delivery O2 Flow Rate FiO2 10/01/17 07:40 37.4 93 16 102/67 (79) 97 Room Air 10/01/17 07:30 Room Air 09/30/17 23:20 Room Air 09/30/17 22:52 37.0 74 18 97/58 (71) 97 Room Air 09/30/17 15:12 Room Air 09/30/17 15:00 36.8 90 16 105/61 (76) 96 Room Air Assessment & Plan Assessment: Postoperative day 3 thoracolumbar decompression fusion Plan: We will discontinue physical therapy. Continue with pain control. Maintain LEO drain. He is currently considering rehab/[facility] upon discharge. Hopefully this can be arranged tomorrow. Inhouse Planning DVT Prophylaxis: Christina Aguilera Discharge Planning Discharge Planning: rehab hospital DVT Prophylaxis: Willy
[2017-10-01] MEDS: TAMSULOSIN HCL 0.4 MG CAP PO SCH (08:31)
[2017-10-01] MEDS: ASPIRIN 81 MG ECTAB PO SCH (08:31)
[2017-10-01] MEDS: METOPROLOL SUCC 25MG EXT REL TAB PO SCH (08:32)
[2017-10-01] MEDS: DILTIAZEM HCL 120 MG EXT REL CAP PO SCH (08:32)
[2017-10-01] MEDS: GABAPENTIN 300 MG CAP PO SCH ×2 (08:32→21:17)
[2017-10-01 11:40] VITALS: BP 111/67
[2017-10-01 16:00] VITALS: BP 102/63; PULSE 79; TEMP 36.8; O2SAT 98
[2017-10-01] MEDS: DOCUSATE SODIUM/SENNA 50/8.6MG TAB PO SCH (21:17)
[2017-10-01 23:07] VITALS: BP 106/65; PULSE 76; TEMP 37.6; O2SAT 99
[2017-10-01] MEDS ORDERED: NURSING DECISION MEDICATION ORDER SCH (23:30)
[2017-10-02] MEDS: OXYCODONE HCL IR 5 MG TAB (IMMEDIATE RELEASE) PO PRN ×3 (04:23→20:05)
[2017-10-02] MEDS: ACETAMINOPHEN 500 MG TAB PO PRN ×3 (04:23→20:06)
[2017-10-02 04:25] VITALS: TEMP 36.7
[2017-10-02 06:05] VITALS: BP 95/62; PULSE 78; TEMP 36.8; O2SAT 97
[2017-10-02] MEDS ORDERED: RXC5 PO (07:37)
--- NOTE | 2017-10-02 07:38 | Discharge Instructions ---
Discharge Instructions Date of Service October 02, 2017. Admission Reason for Admission: Lumbar Spinal Stenosis Discharge Discharge Diagnosis / Problem: lumbar stenosis Discharge Goals Goal(s): Improve function Activity Recommendations Activity Limitations: per Instructions/Follow-up section . Instructions / Follow-Up Instructions / Follow-Up ACTIVITY RECOMMENDATIONS: SELF CARE INSTRUCTIONS AFTER THORACIC/LUMBAR FUSIONS 1. You may walk to your tolerance. It is good exercise for your legs and back. Expect some back and intermittent leg aches and pains. 2. You may perform "counter-top" level activities (make a sandwich, renuka with a project, etc.). 3. No bending or lifting of more than 10 pounds or back twisting of any nature (roll like a log when turning in bed). 4. You may ride in a car for 20-30 minutes at a time. No driving until after your first visit with your doctor. 5. Frequent changes of position and restricting sitting to 30 minutes at a time will help limit the amount of back spasms and stiffness you may experience. 6. You may discontinue the use of ambulatory aids (cane, crutches, etc.) once your strength and confidence allow. 7. You may machine technician the shower and let water strike your incision when you arrive home at least once daily. Do not take a tub bath, sit in a hot tub or go into a swimming pool until after your first recheck in the office. SPECIAL CARE INSTRUCTIONS: VERY IMPORTANT TO READ AND REVIEW A. Your surgical incision has been closed with a cosmetic suture under the skin that will dissolve in about 6 weeks. In 14 days, you can use a pair of clean scissors and cut the suture that is left outside of the skin at the ends of your incision. 1. The small skin tapes can be removed 7 days after surgery if they have not fallen off by that point. 2. You may keep the wound open to air as much as possible to promote healing after post-op day number 5 unless told otherwise by your doctor. 3. If you think the wound looks like it is becoming infected (redness or worsening drainage) and/or you are experiencing fever, chill or worsening back pain and muscle spasms, contact the office so that we may evaluate you as soon as possible. B. Complications are uncommon, but please contact us if you have any signs or symptoms of: 1. wound infection (fever higher than 102.5 degrees F, redness, separation of wound, drainage, or increasing pain from the incision) 2. blood clots in legs (pain, swelling, redness and warmth in legs) 3. urinary tract infection (fever higher than 102.5 degrees F, burning upon urination or increased frequency of urination) 4. nerve problems (inability to walk on your toes or heels, numbness, loss of bowel or bladder control) 5. any other symptoms that concern you C. Please call the office at if you have any concerns or questions about your operation or recovery. D. No smoking! Smoking drastically decreases the chance of a solid fusion. E. Do not take any anti-inflammatory medications (Indocin, Advil, Motrin, Aspirin, Naprosyn, etc.) as these may inhibit the chance of a solid fusion. Tylenol is okay to take for pain. MANAGING PAIN AFTER SPINAL SURGERY 1. Narcotic medication is intended for short-term use and will be provided for surgical pain. Surgical pain usually lasts for a period of 4-6 weeks. Narcotic medication includes Percocet, Vicodin, Darvocet, Tylenol #3 or Lortab. 2. Longer-term pain is more appropriately treated with non-narcotic medication such as Tylenol ES. 3. Muscle spasm is not appropriately treated with narcotics. Muscle relaxers such as Soma, Flexeril or Skelaxin can be used along with Tylenol ES. 4. Remember that we all live with some "aches and pains". This is not unusual or uncommon after an injury or as we get older. a. Back pain is expected and may include muscle spasms for 4 to 6 weeks after surgery. The pain should gradually improve. If the pain worsens for no apparent reason, please contact the office. b. Intermittent leg pain may also be experienced and should not be concerned about unless it worsens for no apparent reason. If so, please contact the office. 5. We will provide appropriate medication within the normal guidelines of their prescribed use. We will also be very cautious and aware of potential abuse and extended duration of patients' medication needs. a. Pain medications are for your comfort and to assist with sleep and rest so that the tissue can heal. They are not provided in order to return to normal activity and should not be used through the day. To do so or worsening pain at night can result from ongoing tissue damage and development of tolerance to the prescribed medicine. 6. Please allow 2-3 days to process refills. Prescriptions will not be mailed but must be picked up at the office. FOLLOW UP VISIT: Keep your scheduled follow-up appointment. Any questions, please call the office at . Current Hospital Diet Patient's current hospital diet: Regular Diet Discharge Diet Recommended Diet: Regular Diet Procedures Procedures Performed: 1. Removal of posterior segmental instrumentation L3-S1. #2 expiration of fusion L3 S1. #3 lumbar decompression medial facetectomies foraminotomies L1-L2 3. #4 posterior spinal fusion T12-L4. #5 placed a posterior segmental instrumentation T12-S1. #6 interbody fusion L2-3. #7 placement of titanium cage 11 x 26 mm at L2-3. #8 placement of locally harvested autograft in the posterior lateral gutters. #9 placement InFUSE collagen sponge, mass graft in the posterior gutters and ostial amp bone graft in the interbody space. Pending Studies Studies pending at discharge: no Medical Emergencies . Who to Call and When: Medical Emergencies: If at any time you feel your situation is an emergency, please call 911 immediately. . Non-Emergent Contact Non-Emergency issues call your: Primary Care Provider . "Provider Documentation" section prepared by [place]. .
[2017-10-02] MEDS: GABAPENTIN 300 MG CAP PO SCH ×2 (08:03→20:06)
[2017-10-02] MEDS: ASPIRIN 81 MG ECTAB PO SCH (08:03)
[2017-10-02] MEDS: TAMSULOSIN HCL 0.4 MG CAP PO SCH (08:03)
[2017-10-02] MEDS: DILTIAZEM HCL 120 MG EXT REL CAP PO SCH (08:03)
[2017-10-02] MEDS: METOPROLOL SUCC 25MG EXT REL TAB PO SCH (08:03)
[2017-10-02 08:07] VITALS: BP 106/66; PULSE 80
[2017-10-02] MEDS ORDERED: PHENAZOPYRIDINE HCL 200 MG TAB PO ONE (11:58)
[2017-10-02] MEDS ORDERED: PHEN-775 PO (12:01)
--- NOTE | 2017-10-02 14:55 | Discharge Summary ---
Orthopedic Discharge Summary Admission Date/Reason September 28, 2017 at 10:03 Lumbar Spinal Stenosis. Discharge Date/Disposition October 02, 2017 Home Diagnosis Principal Diagnosis: Lumbar spinal stenosis Admission Physical Exam As per Admitting History & Physical. Hospital Course Patient underwent lumbar decompression fusion tolerated as well as taken to the orthopedic floor possibly. Postop day #1 he was up to chair. Progress to the orthopedic floor. He did ambulate short distances about the room. He has profound weakness to the left lower extremity. He progressed appropriately and was transferred to [facility]. Discharge orders and instructions can be found in the chart for further review. Discharge Instructions Please refer to the electronic Patient Visit Report (Discharge Instructions) for additional information.
[2017-10-02 15:10] VITALS: BP 125/67; PULSE 65; TEMP 36.6; O2SAT 98
[2017-10-02] MEDS: ALUMINUM/MAGNESIUM SUSP 30 ML UDC PO PRN (20:06)
[2017-10-02] MEDS: PHENAZOPYRIDINE HCL 200 MG TAB PO PRN (20:06)
[2017-10-02] MEDS: DOCUSATE SODIUM/SENNA 50/8.6MG TAB PO SCH (20:06)
[2017-10-02 23:10] VITALS: BP 107/65; PULSE 86; TEMP 36.4; O2SAT 96
[2017-10-03] MEDS: ONDANSETRON INJ 2 MG/ML 2 ML VIAL IV PRN ×2 (02:55→18:54)
[2017-10-03 06:58] VITALS: BP 103/65; PULSE 100; TEMP 37.5; O2SAT 97
[2017-10-03] MEDS: PHENAZOPYRIDINE HCL 200 MG TAB PO PRN ×2 (07:40→20:58)
[2017-10-03] MEDS: ACETAMINOPHEN 500 MG TAB PO PRN ×2 (07:41→18:48)
[2017-10-03] MEDS: OXYCODONE HCL IR 5 MG TAB (IMMEDIATE RELEASE) PO PRN ×3 (07:42→18:47)
[2017-10-03 08:50] VITALS: BP 106/64; PULSE 85
[2017-10-03] MEDS: ASPIRIN 81 MG ECTAB PO SCH (08:53)
[2017-10-03] MEDS: TAMSULOSIN HCL 0.4 MG CAP PO SCH (08:53)
[2017-10-03] MEDS: GABAPENTIN 300 MG CAP PO SCH ×2 (08:53→20:58)
[2017-10-03] MEDS: METOPROLOL SUCC 25MG EXT REL TAB PO SCH (08:54)
[2017-10-03] MEDS: DILTIAZEM HCL 120 MG EXT REL CAP PO SCH (08:55)
--- NOTE | 2017-10-03 11:42 | Progress Note ---
Progress Note Date of Service October 03, 2017. Progress Note Patient's back pain is well controlled still significant weakness left lower extremity. Vital signs stable. On exam he is sitting in the chair at the bedside. He is comfortable. Again weakness to left quad. Assessment status post lumbar depression fusion per plan at this time we are hoping to get him into rehab at [facility]. If he is not approved for this he may consider discharge home with outpatient therapy if necessary. Obviously he would be an excellent candidate for rehab and that would be desirable.
[2017-10-03 15:26] VITALS: BP 132/72; PULSE 66; TEMP 36.6; O2SAT 98
[2017-10-03] MEDS: DOCUSATE SODIUM/SENNA 50/8.6MG TAB PO SCH (20:58)
[2017-10-03 22:31] VITALS: BP 95/60; PULSE 69; TEMP 36.6; O2SAT 97
[2017-10-04] MEDS: ACETAMINOPHEN 500 MG TAB PO PRN (05:13)
[2017-10-04] MEDS: OXYCODONE HCL IR 5 MG TAB (IMMEDIATE RELEASE) PO PRN ×2 (05:14→13:42)
[2017-10-04 05:59] VITALS: BP 91/51; PULSE 73; TEMP 36.6; O2SAT 97
[2017-10-04 06:32] VITALS: BP 102/59
[2017-10-04 07:06] VITALS: BP 107/70; PULSE 71; TEMP 36.6; O2SAT 96
[2017-10-04 07:45] VITALS: O2SAT 96
[2017-10-04] MEDS: METOPROLOL SUCC 25MG EXT REL TAB PO SCH (09:17)
[2017-10-04] MEDS: DILTIAZEM HCL 120 MG EXT REL CAP PO SCH (09:17)
[2017-10-04] MEDS: GABAPENTIN 300 MG CAP PO SCH (09:17)
[2017-10-04] MEDS: TAMSULOSIN HCL 0.4 MG CAP PO SCH (09:18)
[2017-10-04] MEDS: ASPIRIN 81 MG ECTAB PO SCH (09:18)
[2017-10-04 12:13] VITALS: BP 107/70; PULSE 71; TEMP 36.6; O2SAT 96
--- NOTE | 2017-10-04 14:57 | Progress Note ---
Progress Note Date of Service October 04, 2017. Progress Note Patient's back pain is controlled. Leg symptoms steadily improving. He is walking better. Vital signs are stable. On exam he is in a chair at bedside is reasonable strength testing. Assessment status post multilevel lumbar decompression fusion per plan at this time we will discharge home see him in the next few weeks for update x-rays.
== END 2017-10-04 15:49 | disposition home health service (06) | DRG 455 ==
LOC: C.ACU 06:01 → C.2E 10:03 → EDBEDREQSVC 11:27 → ENRESERV 11:29 → CANBEDREQ 11:42 → ENRESERV 09-29 17:39 → C.3E 09-29 18:25
PROVIDERS: ADMIT Orthopaedic Surgery Orthopaedic Surgery of the Spine; ATTEND Orthopaedic Surgery Orthopaedic Surgery of the Spine
PROC: 0ST20ZZ Resection of Lumbar Vertebral Disc, Open Approach (ICD-10-PCS; principal; 2017-09-28 07:45)
PROC: 0RGA071 Fusion of Thoracolumbar Vertebral Joint with Autologous Tissue Substitute, Posterior Approach, Posterior Column, Open Approach (ICD-10-PCS; principal; 2017-09-28 07:45)
PROC: 0SG00AJ Fusion of Lumbar Vertebral Joint with Interbody Fusion Device, Posterior Approach, Anterior Column, Open Approach (ICD-10-PCS; principal; 2017-09-28 07:45)
PROC: 0SG1071 Fusion of 2 or more Lumbar Vertebral Joints with Autologous Tissue Substitute, Posterior Approach, Posterior Column, Open Approach (ICD-10-PCS; principal; 2017-09-28 07:45)
PROC: 0SG3071 Fusion of Lumbosacral Joint with Autologous Tissue Substitute, Posterior Approach, Posterior Column, Open Approach (ICD-10-PCS; principal; 2017-09-28 07:45)
PROC: 0SP304Z Removal of Internal Fixation Device from Lumbosacral Joint, Open Approach (ICD-10-PCS; principal; 2017-09-28 07:45)
PROC: 0SP004Z Removal of Internal Fixation Device from Lumbar Vertebral Joint, Open Approach (ICD-10-PCS; principal; 2017-09-28 07:45)
DX: M48.062 Spinal stenosis, lumbar region with neurogenic claudication (principal); M62.81 Muscle weakness (generalized); G62.9 Polyneuropathy, unspecified; I10 Essential (primary) hypertension; N40.0 Benign prostatic hyperplasia without lower urinary tract symptoms; Z98.1 Arthrodesis status; Z95.2 Presence of prosthetic heart valve; Z86.79 Personal history of other diseases of the circulatory system; Z87.442 Personal history of urinary calculi; Z98.890 Other specified postprocedural states; Z79.01 Long term (current) use of anticoagulants; Z79.82 Long term (current) use of aspirin; Z79.899 Other long term (current) drug therapy; Z87.891 Personal history of nicotine dependence

== ENCOUNTER 2019-11-28 05:13 | Observation (INO) ==
--- NOTE | 2019-11-01 14:52 | PAT Medication Instructions ---
Medication Instructions Date of Service November 01, 2019 Home Medications Medication Instructions Recorded metoprolol succinate 25 mg 25 mg PO QAM #90 tab 06/10/19 tablet,extended release 24 hr gabapentin 300 mg PO TID multivitamin 1 tab PO QAM amoxicillin 500 mg capsule 2,000 mg PO .COMPLEX metoprolol succinate 25 mg tablet,extended release 24 hr 25 mg PO QAM celecoxib [Celebrex] 200 mg PO UD PRN Continue as directed amoxicillin 500 mg capsule 2,000 mg PO .COMPLEX ASK your surgeon for instructions celecoxib [Celebrex] 200 mg PO UD PRN DO NOT take the morning of surgery multivitamin 1 tab PO QAM Take morning of surgery With a small sip of water, OTHERWISE NOTHING TO EAT OR DRINK AFTER MIDNIGHT: gabapentin 300 mg PO TID metoprolol succinate 25 mg tablet,extended release 24 hr 25 mg PO QAM Take evening before surgery gabapentin 300 mg PO TID Other Notes If you have any questions please call us at [phone] or [phone] or [phone] or [phone]
--- NOTE | 2019-11-06 12:19 | Anesthesiology Consultation ---
Date of Service November 06, 2019 Assessment & Plan (1) Encounter for pre-operative examination: Chart Review Chart Review: Pending: Refer to Additional Notes / Consult section (surgeon ordered PCP and cardio clearance (pt scheduling)) and Patient seen in Pre Admission Testing Awaiting surgeon ordered PCP and cardio clearance (pt scheduling) Per PAT appt on 11/05/19, [facility] [employer]. Wears mask in public areas. Educated patient to follow up with surgeon's office regarding Covid testing. Educated on importance of self quarantining, social distancing and wearing mask in public both for herself and household contacts. Endoscopic sinus surgery 11/08/18= Done under [facility] with LMA #5. Teaching & Discussion Pre-Anesthesia Teaching/Discussion Notes: Instructed NPO after midnight before surgery,except medications with 15 cc of water. Medication instructions provided according to the PAT guidelines. History Surgery Operation Date: 11/28/19 07:15 Proposed Procedures p Right Total Knee Arthroplasty - Collin Terrell MD Height/Weight Height: 5 ft 7 in Weight: 71 kg Allergies Allergy/AdvReac Type Severity Reaction Status Date / Time No Known Allergies Allergy Verified 10/31/19 08:51 Medications Home Medications Medication Instructions Recorded Confirmed Last Taken gabapentin 300 mg PO TID 11/06/18 10/31/19 05/21/19 multivitamin 1 tab PO QAM 11/06/18 10/31/19 05/21/19 amoxicillin 500 mg capsule 2,000 mg PO .COMPLEX cap 05/16/19 10/31/19 03/15/18 metoprolol succinate 25 mg 25 mg PO QAM #90 tab 06/10/19 10/31/19 Unknown tablet,extended release 24 hr celecoxib [Celebrex] 200 mg PO UD PRN 10/31/19 10/31/19 Unknown Past Medical History Medical History Anemia "SLIGHT" - MONITORING Basal cell carcinoma REMOVED FROM FACE BPH (benign prostatic hyperplasia) Hiatal hernia Slight- occ reflux- mild History of bacterial endocarditis ; initially had mitral valve repair 2016; later had mitral valve replacement in 2017 History of kidney stones Hx of atrial fibrillation, no current medication 2017 DX AFIB - HAS HAD NO FURTHER ISSUES WITH AFIB- HAD SUCCESSFUL CAR DIOVERSION 04/2017- NO ISSUES SINCE Osteoarthritis Sinus problem CHRONIC SINUS DRAINAGE Exercise / Class Metabolic Activity III < 4 Walking/Shop/Light housework (ONE FLIGHT OF STAIRS- MILD SOB, NO CHEST PAIN ) Past Family History Family History Father Family history of bladder cancer Past Surgical History Surgical History History of back surgery LUMBAR DISCECTOMY X 1 LUMBAR FUSION X 2 History of cardiac cath 2017 [facility] - NO STENTS CHECKING MITRAL VALVE History of cardioversion 04/2017 - D/T AFIB - HAS HAD NO FURTHER ISSUES WITH AFIB History of colonoscopy History of ear, nose, and throat (ENT) surgery NASAL POLYPS REMOVED History of endoscopy History of extraction of renal calculus 10/2017 CYSTO LASER LITHOTRIPSY AND STONE RETRIEVAL History of heart valve replacement MITRAL VALVE REPLACEMENT - [facility] 01/13/2017 History of transesophageal echocardiography ([facility]) Hx of hernia repair RIGHT INGUINAL HERNIA REPAIR Hx of shoulder surgery LEFT - ROTATOR CUFF; RIGHT ARTHROSCOPIC Past Anesthesia History No Hx of Anesthesia Complications and No Family Hx of Anesthesia Complications History of PONV No Hx of PONV and No Hx of Motion Sickness Social History Smoking Status: Former smoker tobacco type: pipe Do You Dip or Chew Tobacco: No Smoking End Date: OCTOBER 1989 Hx Alcohol Use: No Hx Substance Use: No substance use type: does not use Review of Systems Mild cough secondary to post nasal drip from sinus drainage Occ reflux Patient denies chest pain, shortness of breath, wheezing, palpitations. No hx of seizures, stroke, AK, apnea/snoring. No hx of blood clots or blood transfusions Physical Exam Vital Signs VITALS BP 130/70 P 56 TEMP 97.9 SP02 98% RESP 16 Constitutional no acute distress ENMT Mouth: no TMJ clicking Thyromental Distance: > or= 3.5 Finger Breadths (3.5) Mallampati Class: II Top and bottom front teeth capped Permanent bridges on sides of mouth Neck + limited neck extension (mild) Respiratory normal respiratory effort; no respiratory distress Auscultation: lungs clear to auscultation bilaterally; no wheezes Cardiovascular Rate/Rhythm: regular rate and regular rhythm Heart Sounds: no murmur (no significant murmur noted ) Vessels: no carotid bruit Musculoskeletal Spine: + pain with cervical ROM (mild ) Neurologic moves all extremities Psychiatric Orientation: alert Testing Laboratory Results 11/06/19 12:40 PT 11.7 Seconds (9.0-12.0) 11/06/19 12:40 INR 1.1 (0.9-1.1) 11/06/19 12:40 Hemoglobin A1c 5.9 % (4.5-5.6) H 11/06/19 12:40 Urine Color Dark Yellow 11/06/19 12:40 Urine Appearance Clear (Clear) 11/06/19 12:40 Urine pH 5.5 (4.5-7.5) 11/06/19 12:40 Ur Specific [place] 1.028 (1.000-1.030) 11/06/19 12:40 Urine Protein Negative (Negative) 11/06/19 12:40 Urine Glucose (UA) Negative (Negative) 11/06/19 12:40 Urine Ketones Trace (Negative) H 11/06/19 12:40 Urine Nitrite Negative (Negative) 11/06/19 12:40 Ur Leukocyte Esterase Negative (Negative) 11/06/19 12:40 Blood Type O Positive 11/06/19 12:40 Antibody Screen NEGATIVE 11/06/19 12:40 10/15/19= WBC: 6.97 H/H: 12.9/39.0 PLATELETS: 39.0 Electrocardiogram Date: 11/06/19 Findings: + SB @ (52) Early repolarization. When compared to EKG from November 07, 2018- no significant change per cardio Echocardiogram Date: 05/17/18 EF: 55-60% LV Function: normal RWMA: + none Other Findings: + LVH (mild concentric) Valvular Disease: + pertinent finding (bioprosthetic mitral valve with expected transvalvular gradient; borderline pulmonary hypertension; est PASP 35-40; ) Abnormal septal motion consistent with post op state. RA moderately dilated. RV and LA mildly dilated. Cardiac Catheterization Date: 12/15/16 Coronary arteries angiographically normal. Follow up with [facility] cardiology surgery for MV repair.
[2019-11-06 13:35] LABS: INR 1.1 (0.9-1.1); Prothrombin Time 11.7 Seconds (9.0-12.0)
[2019-11-06 13:52] LABS: Estimated Average Glucose 123 mg/dl; Hemoglobin A1C 5.9 % (4.5-5.6)
[2019-11-06 13:57] LABS: Appearance Urine Clear (Clear); Bilirubin Urine Negative (Negative); Blood Urine Negative (Negative); Color Urine Dark Yellow; Glucose Urine UA Negative (Negative); Ketones Urine Trace (Negative); Leukocyte Esterase Urine Negative (Negative); Nitrite Urine Negative (Negative); Protein Urine Negative (Negative); Specific Gravity Urine 1.028 (1.000-1.030); Urobilinogen Urine Negative (Negative); pH Urine 5.5 (4.5-7.5)
--- NOTE | 2019-11-06 14:52 | Electrocardiogram Report ---
Test Reason : Blood Pressure : / mmHG Vent. Rate : 052 BPM Atrial Rate : 052 BPM P-R Int : 188 ms QRS Dur : 090 ms QT Int : 424 ms P-R-T Axes : 082 069 071 degrees QTc Int : 394 ms Sinus bradycardia Early repolarization Otherwise normal ECG When compared with ECG of 07-NOV-2018 11:18, No significant change was found Confirmed by Ryan Nur ([id number]) on 11/06/2019 2:51:50 PM Referred By: Collin Terrell Confirmed By:Ryan Nur
[2019-11-06 16:49] LABS: Albumin Level 4.1 gm/dl (3.4-5.0); BUN Creatinine Ratio 35.4 (10-20); Calcium 9.7 mg/dl (8.5-10.1); Creatinine Clr Calc Pharmacy 67.6 ml/min; Est GFR (African American) 96.6; Est GFR (Non-African American) 83.3; Potassium 4.7 mmol/L (3.5-5.1)
[2019-11-06 16:51] LABS: Albumin Globulin Ratio 1.2 (0.9-2); Bilirubin,Total 0.4 mg/dl (0.2-1); Globulin 3.4 gm/dl (2.5-4.0); Total Protein 7.5 gm/dl (6.4-8.2)
--- NOTE | 2019-11-07 10:05 | History & Physical Report ---
Date of Service November 07, 2019 Assessment & Plan (1) Osteoarthritis of right knee: PRE-OP Diagnosis: Right knee osteoarthritis Planned Procedure: Right total knee arthroplasty Plan: Patient is scheduled to undergo this procedure at the [facility] as an inpatient on November 28, [address] Collin Terrell. Risks and complications of the procedure such as: Infection, bleeding, pain, scarring, nerve blood vessel damage, weakness, wound problems, stiffness, incomplete relie f of symptoms, hardware failure, hardware loosening, wear, fracture, tendon or ligament injury, blood clots, embolism, heart attack, stroke and were explained to the patient at his visit with Dr. Terrell on October 07 and informed consent was obtained at that time. Patient also understands the risks of proceeding with surgical intervention during COVID-19 pandemic. Currently he is asymptomatic and understands that he will be tested prior to surgery. We will need to obtain preoperative medical clearance from the patient's primary care provider Dr. Cintron as well as his PA-C in cardiology [facility]. Patient has his appointment with anesthesia at the hospital this afternoon, and while there will obtain a CBC with differential, complete metabolic panel, PT/INR, blood type and screen, urinalysis, urine culture and sensitivity, EKG, hemoglobin A1c and a nasal culture for MRSA. During today's preoperative visit we discussed discharge planning, went over the total knee arthroplasty packet, discussed antibiotic use following total joint procedures, talked about DVT prophylaxis following surgery, as well as pain control. I also advised the patient that [facility] offers lectures regarding joint replacement surgery via zoom that he can connect with using [facility]'s website. Patient advised me that he has a walker he will bring with him on the day of [place]. He states that he does not need a handicap placard because he currently has a permanent one. Patient will be scheduled for his 2-week postoperative follow-up with myself on December 11, 2019 at 11:15 AM. The patient verbalizes understanding of all information provided during today's visit. He thanked us for the care he is received. Patient states if he has questions or concerns or should arise prior to his surgery date, he will contact clinic. History of Present Illness Chief Complaint: Chief Complaint: Right knee pain Primary Care Provider: Bernardino Flor History of Present Illness (including history relevant to procedure): This 74-year-old male presents to the clinic today for his preoperative history and physical. Patient states that his right knee pain has worsened significantly over the last 2 years and now he is only able to walk less than 100 yards before he has to stop. He cannot mow his lawn very well anymore. Standing for any period of time bothers him. He is using a cane. He feels the pain in the anterior aspect of the knee predominantly. Patient is failed numerous conservative measures including physical therapy, use of nonsteroidal agents and injections. He is ready to proceed with surgical intervention to improve his quality of life. Past Medical History: Problems: Right knee DJD Pre-op exam Left knee pain Right knee pain Osteoporosis Gastroenteritis Sinusitis Nephrolithiasis Fusion of spine, thoracic region Lipoma of lower back. Enlarged prostate BPH (benign prostatic hyperplasia) Atrial flutter Status post mitral valve replacement with bioprosthetic valve PAF (paroxysmal atrial fibrillation) Secondary left ventricular dilation Mitral regurgitation Diverticulitis Dark stools Weight disorder Polyarthritis Right sided sciatica Chronic low back pain Low backache Heart murmur Osteoarthritis Skin lesion Mitral valve prolapse DJD (degenerative joint disease) Diverticulosis Spinal stenosis of lumbar region Congenital cerebral cyst Procedure History Procedure Procedure Date Comments Lithotripsy Back - Lumbar spine DXA scan T score 07/01/2019 - 1. Femur neck L is 0.684 g/cm2 w/ T-score of -3.02. Femur neck R is 0.712 g/cm2 w/ T-score of -2.83. Femur total L is 0.722 g/cm2 w/ 0.722 g/cm2 w/ T- score of -2.64. Femur total R is 0.735 g/cm2 w/ T-score of -2.55. Forearm radius 33% is 0.719 g/cm2 w/ T-score of -1.06. Z-score of -1.8 CT of abdomen and pelvis 10/17/2017 - duplicated left renal collecting system with residual periureteral fat stranding and mild left urothelial thickening likely from interval passage of the previously noted 6-7 mm lower pole moiety left ureteral calculus. nonobstructing punctate left renal calculus interval extension of posterior lumbar fusion hadware, which now spans from T12 to S1 with laminectomy defect at L2 Chest X-ray 10/17/2017 - No acute cardiopulmonary disease Venous doppler ultrasonography 10/17/2017 - normal study Spinal fusion 09/28/2017 - 1- Removal of posterior segmental instrumentation L3-S1. 2- expiration of fuslion L3-S1. 3 -lumbar decompression medial facetctomies foraminotomies L1-L2. 4 - posterior spinal fusion T12-L4. 5 -placed a posterior segmental ins trumentionat T12-S1. 6 - interbody fusion L2-3. 7 - placement of titanium cage 11 x 26 mm at L2-3. 8- placement of locally harvested autograft in the posterior lateral gutters. 9 - placement InFUSE collagen sponge, mass graft in the posterior gutters and ostial amp bone graft in the interbody space. - Revision decopression, medial facetectomies & forarminotomy L3-L4, L4-L5, L5- S1. Posterior spinal fusion L3-L4, L4-L5, L5-S1. Placement posterior segmental instrumentation using Medicrea rods & screws L3-L4, L4-L5, L5-S1. Interbody fusion L4-L5. Placement of PEEK cage [id number] at Lf-L5. Placement of locally harvested morcellized autograft in posterior gutters. Placement onf infuse collagen sponge combined with Mastergraft in posterior gutters & Amaya bone graft in the interbody space. CT of abdomen and pelvis 09/12/2017 - findings suggest sacral decubitus ulcer and possible bilateral ischial decubitus ulcers. - 1. There is a 7 mm obstructing calculus in the left proximal ureter. This causes mild left-sided hydronephrosis. 2. There is an additional nonobstructing left renal calculus. No renal calculi are clearly identified on this contrast- enhanced examination. 3. 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 4. Moderate colonic fecal retention. No bowel obstruction is seen. 5. Moderate sigmoid d iverticulosis without CT evidence of acute diverticulitis. 6. Cardiomegaly and hiatal hernia. 7. Prostatomegaly. 8. There is lucency around the interpedicular screws at S1 suggesting lossening. Clinica correlation will be required. 9. Additional findings as above. DEXA - Dual energy X-ray photon absorptiometry 09/04/2017 - Tscore of : left femur neck is -2.9, right femur neck -3.3, right forearm radius -1.5. Zscore of -2.0, which is very low for age & sec. Causes of secondary bone loss should be investigated. Electrical cardioversion 05/04/2017 - Synchronized biphasic shock was delivered using 100 J with conversion to a sinus rhythm. Chest angiography 02/17/2017 - Impression:1. No acute aortic pathology or evidence of pulmonary thromboembolic disease.2. Prior median sternotomy with placement of prosthetic mitral valve.3. Small left pleural effusion with subsegmental left basilar consolidation suggesting compressive atelectasis or pneumonia. Mild layering secretions are present within the esophagus and bronchus intermedius with associated bronchial wall thickening which raises the possibility of aspiration.4. Nonobstructing calculi of the superior pole left kidney incid entally noted.5. Right is acromiale. Venous doppler ultrasonography right lower extremity 01/31/2017 - Impression: Normal study. see report right foot 3 views 01/31/2017 - Impression: No acute osseous injury MVR - Mitral valve replacement 01/13/2017 [facility] procedure 12/28/2016 - Normal LV size and function. LVEF 60-65%. No regional wall motion abnormalities. Normal RV size & function. Severe mitral valve prolapse/partial flair leaflet (P1/P2 segment). Severe eccentric mitral regurgitation with systolic flow reversal in right lower pulmonary vein. No LA appendage thrombus. No significant aortic pathology. Coronary angiography 12/15/2016 - Left & right. Normal coronary arteries. Normal intracardiac filling pressure. Normal pulmonary arter pressures. Excision biopsy 03/22/2016 - right forehead Plain X-ray of toes abnormal 09/24/2015 - Moderate osteparthritis at the first MTP joint Shave biopsy and cauterization of skin 09/15/2015 - Right lateral forehead Left Shoulder Rotator Cuff Repair 07/06/2015 - right shoulder complete tear of right rotator cuff MRI of lumbar spine 06/05/2015 - Severe multivertebra disc degeneration and facet osteoarthritisMultilevel central canal stenosis, moderate at L2-3 and L3-4Multilevel foraminal stenosis, severe bilaterally at L4-5 (right greater yhan left) and severe on the left L3- 4 Hemilaminectomy decompression hemilaminotomies L3-4 and L4-5. About 2013 - decompression hemilaminotomies L3-4 and L4-5. Colonoscopy 11/22/2011 - Repeat colonoscopy in 10 years for screening purposesDiverticulosis in the sigmoid colon and in the descending colon XR Abdomen 10/06/2011 - [facility] EKG 08/29/2011 - [facility] Transthoracic Echocardiography 07/19/2011 - [facility] XR Right Knee 04/04/2010 - [facility] MRI Lumbar Spine with and without contrast 05/19/2006 - [address] XR Lumbar Spine 05/06/2006 - [facility] XR Right Thumb 05/06/2006 - [facility] Hernia Repair 05/02/2005 XR Left Clavicle 12/16/2002 XR: Clavicle, Pelvis, and tibia and fibula 04/23/2002 - [facility] ECG 05/03/2001 [place] [facility] [place]illect[place] and adenoidectomy About 1951 Allergies and Sensitivities: NKA Social history: Completely unremarkable Family history: Cancer Current Home Meds: (Last Updated 11/05 11:16) (amoxicillin 500 mg oral capsule) 2,000 mg PO ONCE as needed for dental procedure. -give 1 hour prior to dental procedure(CeleBREX 50 mg oral capsule) 50 mg PO bidsulfate (ferrous sulfate 325 mg (65 mg elemental iron) oral tablet) 325 mg PO Daily(gabapentin 300 mg oral capsule) 300 mg PO tid(metoprolol succinate 25 mg oral tablet, extended release) 25 mg PO Dailywith minerals (Centrum Silver Men's oral tablet) 1 tab PO Daily Allergies Allergy/AdvReac Type Severity Reaction Status Date / Time No Known Allergies Allergy Verified 10/31/19 08:51 Home Medications Home Medications Medication Instructions Recorded Confirmed Type gabapentin 300 mg PO TID 11/06/18 10/31/19 History multivitamin 1 tab PO QAM 11/06/18 10/31/19 History amoxicillin 500 mg capsule 2,000 mg PO .COMPLEX cap 05/16/19 10/31/19 History metoprolol succinate 25 mg 25 mg PO QAM #90 tab 06/10/19 10/31/19 Rx tablet,extended release 24 hr celecoxib [Celebrex] 200 mg PO UD PRN 10/31/19 10/31/19 History Past Med/Surg History Medical History Anemia "SLIGHT" - MONITORING Basal cell carcinoma REMOVED FROM FACE BPH (benign prostatic hyperplasia) Hiatal hernia Slight- occ reflux- mild History of bacterial endocarditis ; initially had mitral valve repair 2016; later had mitral valve replacement in 2017 History of kidney stones Hx of atrial fibrillation, no current medication 2017 DX AFIB - HAS HAD NO FURTHER ISSUES WITH AFIB- HAD SUCCESSFUL CARDIOVERSION 04/2017- NO ISSUES SINCE Osteoarthritis Sinus problem CHRONIC SINUS DRAINAGE Surgical History History of back surgery LUMBAR DISCECTOMY X 1 LUMBAR FUSION X 2 History of cardiac cath 2017 [facility] - NO STENTS CHECKING MITRAL VALVE History of cardioversion 04/2017 - D/T AFIB - HAS HAD NO FURTHER ISSUES WITH AFIB History of colonoscopy History of ear, nose, and throat (ENT) surgery NASAL POLYPS REMOVED History of endoscopy History of extraction of renal calculus 10/2017 CYSTO LASER LITHOTRIPSY AND STONE RETRIEVAL History of heart valve replacement MITRAL VALVE REPLACEMENT - CHARLES 01/13/2017 History of transesophageal echocardiography ([facility]) Hx of hernia repair RIGHT INGUINAL HERNIA REPAIR Hx of shoulder surgery LEFT - ROTATOR CUFF; RIGHT ARTHROSCOPIC Family History Father Family history of bladder cancer Social History Preferred Language: [place] Communication Ability: Effective Service Porter Required: No Beliefs That Will Affect Care: None Current Living Situation: Spouse Feels Safe at Home: Yes Smoking Status: Former smoker Tobacco Type: pipe ; Second Hand Exposure: No ; Hx Alcohol Use: No Hx Substance Use: No Review of Systems All systems reviewed & are unremarkable except as noted in HPI & below Physical Exam Physical Exam: Physical Exam: (relevant to the procedure, including heart and lung evaluation) General: Alert and oriented x3 with proper grooming and hygiene. Eyes: Pupils are equal and reactive to light with accommodation. Extraocular movements are intact Throat: Posterior oropharynx clear with absence of edema, erythema or exudate Cardiac: Regular rate and rhythm with no gallops appreciated. Patient does have a notable grade 4/6 holosystolic heard best over the left lateral sternal border Lungs: To auscultation throughout with no wheezing, rales or rhonchi Abdomen: Nonobese, nondistended, nontender with normal active bowel sounds Extremities: knee exam reveals the patient to have a flexion contracture of 10 degrees on the right. He has good flexion up to 145 degrees. He has a positive Darnell's on the right and positive anterior drawer test. Posterior drawer test is negative. He has clear varus deformity on visual inspection. He has palpable dorsalis pedis and posterior tibial pulses Neuro: Cranial nerves II through XII are intact with no motor or sensory deficit Skin: Normal appearance with no open skin areas or discharge Results & Data Laboratory Results Lab Results 11/06/19 11/06/19 11/06/19 Range/Units 12:40 12:40 12:40 PT 11.7 (9.0-12.0) Seconds INR 1.1 (0.9-1.1) Sodium (136-145) mmol/L Potassium (3.5-5.1) mmol/L Chloride (98-107) mmol/L Carbon Dioxide (21-32) mmol/L Anion Gap (3-11) BUN (7-18) mg/dl Creatinine (0.6-1.4) mg/dl Est Cr Clr Drug Dosing ml/min Est GFR ( Amer) Est GFR (Non-Af Amer) BUN/Creatinine Ratio (10-20) Glucose (70-99) mg/dl Estimat Average Glucose 123 mg/dl Hemoglobin A1c 5.9 H (4.5-5.6) % Calcium (8.5-10.1) mg/dl Total Bilirubin (0.2-1) mg/dl AST (15-37) U/L ALT (12-78) U/L Alkaline Phosphatase (45-117) U/L Total Protein (6.4-8.2) gm/dl Albumin (3.4-5.0) gm/dl Globulin (2.5-4.0) gm/dl Albumin/Globulin Ratio (0.9-2) Urine Color Dark Yellow Urine Appearance Clear (Clear) Urine pH 5.5 (4.5-7.5) Ur Specific [place] 1.028 (1.000-1.030) Urine Protein Negative (Negative) Urine Glucose (UA) Negative (Negative) Urine Ketones Trace H (Negative) Urine Blood Negative (Negative) Urine Nitrite Negative (Negative) Urine Bilirubin Negative (Negative) Urine Urobilinogen Negative (Negative) Ur Leukocyte Esterase Negative (Negative) Nasal Screen MRSA (PCR) (Negative) Blood Type Antibody Screen 11/06/19 11/06/19 11/06/19 Range/Units 12:40 12:40 12:42 PT (9.0-12.0) Seconds INR (0.9-1.1) Sodium 138 (136-145) mmol/L Potassium 4.7 (3.5-5.1) mmol/L Chloride 106 (98-107) mmol/L Carbon Dioxide 27 (21-32) mmol/L Anion Gap 5.0 (3-11) BUN 32 H (7-18) mg/dl Creatinine 0.91 (0.6-1.4) mg/dl Est Cr Clr Drug Dosing 67.6 ml/min Est GFR ( Amer) 96.6 Est GFR (Non-Af Amer) 83.3 BUN/Creatinine Ratio 35.4 H (10-20) Glucose 93 (70-99) mg/dl Estimat Average Glucose mg/dl Hemoglobin A1c (4.5-5.6) % Calcium 9.7 (8.5-10.1) mg/dl Total Bilirubin 0.4 (0.2-1) mg/dl AST 24 (15-37) U/L ALT 29 (12-78) U/L Alkaline Phosphatase 115 (45-117) U/L Total Protein 7.5 (6.4-8.2) gm/dl Albumin 4.1 (3.4-5.0) gm/dl Globulin 3.4 (2.5-4.0) gm/dl Albumin/Globulin Ratio 1.2 (0.9-2) Urine Color Urine Appearance (Clear) Urine pH (4.5-7.5) Ur Specific [place] (1.000-1.030) Urine Protein (Negative) Urine Glucose (UA) (Negative) Urine Ketones (Negative) Urine Blood (Negative) Urine Nitrite (Negative) Urine Bilirubin (Negative) Urine Urobilinogen (Negative) Ur Leukocyte Esterase (Negative) Nasal Screen MRSA (PCR) Negative (Negative) Blood Type O Positive Antibody Screen NEGATIVE Diagnostic Findings Studies (relevant to the procedure): X-rays done demonstrate [id number] arthritis in the medial compartment of both knees with some subluxation of the femur on the tibia on the right knee. He has tricompartmental osteophyte formation noted. No bone loss is seen yet.
[2019-11-28] MEDS ORDERED: TRANEXAMIC ACID / 0.7% NACL 1000MG/100ML BAG IV ONE (05:33)
[2019-11-28] MEDS ORDERED: SCOPOLAMINE 1.5 MG TDSY TD SCH (06:00)
[2019-11-28] MEDS ORDERED: ACETAMINOPHEN 500 MG TAB PO SCH (06:00)
[2019-11-28] MEDS ORDERED: CeleBREX 200 MG CAP PO SCH (06:00)
[2019-11-28] MEDS ORDERED: dexAMETHasone 4 MG TAB PO SCH (06:00)
[2019-11-28] MEDS ORDERED: FAMOTIDINE 20 MG TAB PO SCH (06:00)
[2019-11-28] MEDS ORDERED: LR 60ML/HR IV SCH (06:00)
[2019-11-28] MEDS ORDERED: CEFAZOLIN 2000MG 2,000 MG/15 ML SYR IV SCH (06:00)
[2019-11-28] MEDS ORDERED: ROPIVACAINE 0.5% HCL/PF 150 MG, BUPIVACAINE 0.5% MPF 30 ML, EPINEPHrine 0.15 MG, Ketoro... INFIL SCH (06:00)
[2019-11-28] MEDS ORDERED: METOCLOPRAMIDE HCL 10 MG TABLET PO SCH (06:00)
[2019-11-28] MEDS ORDERED: LR 500ML BOLUS, THEN 15ML/HR IV SCH (06:00)
[2019-11-28] MEDS ORDERED: TRAMADOL HCL 50 MG TABLET PO SCH (06:00)
[2019-11-28] MEDS ORDERED: TRANEXAMIC ACID 1,000 MG x 1 **For Topical Use TOP SCH (06:05)
[2019-11-28] MEDS ORDERED: MIDAZOLAM HCL 1 MG/ML 2ML VIAL ONE (06:14)
[2019-11-28] MEDS ORDERED: LIDOCAINE HCL 2% 2 ML VIAL/AMP(20MG/ML) INFIL ONE (06:14)
[2019-11-28] MEDS ORDERED: PROPOFOL IV EMULSION 10 MG/ML 20 ML VIAL IV ONE ×2 (06:14→08:36)
[2019-11-28] MEDS ORDERED: fentaNYL citrate 100 MCG/2 ML VIAL ONE (06:14)
[2019-11-28] MEDS ORDERED: ONDANSETRON INJ 2 MG/ML 2 ML VIAL ONE (06:15)
[2019-11-28] MEDS ORDERED: DEXAMETHASONE SOD INJ 4 MG/ML VIAL ONE (06:15)
[2019-11-28] MEDS ORDERED: BUPIVACAINE 0.5 % 5 MG/1 ML PF 10ML VIAL ONE (06:26)
[2019-11-28] MEDS ORDERED: EPINEPHrine INJ 1 MG/ML AMP ONE (06:27)
[2019-11-28] MEDS ORDERED: ROPIVACAINE 0.5% 5 MG/ML 30 ML VIAL ONE (06:28)
[2019-11-28] MEDS ORDERED: ORTHO JOINT ANESTHETIC ONE (07:02)
--- NOTE | 2019-11-28 07:04 | History & Physical Bridge Note ---
Date of Service November 28, 2019 History & Physical Bridge Note I have examined the patient, reviewed the History & Physical and in the interval since the performance of the History & Physical I have noted the following changes of clinical significance: no changes noted
[2019-11-28] MEDS ORDERED: HYDROmorphone INJ 1 MG/ML SYRINGE IV PRN (07:30)
[2019-11-28] MEDS ORDERED: ePHEDrine sulfate 50 MG/ML AMP IV PRN (07:30)
[2019-11-28] MEDS ORDERED: fentaNYL citrate 100 MCG/2 ML VIAL IV PRN (07:30)
[2019-11-28] MEDS ORDERED: ATROPINE SULFATE 0.1 MG/ML 10ML SYR IV PRN (07:30)
[2019-11-28] MEDS ORDERED: ONDANSETRON INJ 2 MG/ML 2 ML VIAL IV PRN ×2 (07:30→09:26)
[2019-11-28] MEDS ORDERED: ePHEDrine sulfate 50 MG/ML SYR ONE (07:38)
--- NOTE | 2019-11-28 09:25 | Operative Report ---
Post Operative Report Pre & Post Diagnosis Operation Date: 11/28/19 07:15 Pre-Op Diagnosis: Right Knee Osteoarthritis Post-Op Diagnosis: Right Knee Osteoarthritis I identified the patient and participated in the time-out.: Yes Procedure Operation Date: 11/28/19 07:15 Actual Procedures p Right Total Knee Arthroplasty(Right) - Collin Terrell MD Surgeon Collin Terrell MD Lead Business Systems Analyst Kuldeep Flores MD and JOHN Unger PA-C Estimated Blood Loss 100 Findings Consistent with Post-Op Diagnosis Specimens Bone and soft tissue from right knee Anesthesia Type Spinal MAC Complications none Disposition Accompanied Patient To Recovery: No Disposition: Recovery Room Indications 74-year-old male with right knee pain refractory to conservative management. X- rays demonstrate end-stage osteoarthritis. I had a long discussion with him about the risks and benefits of surgery alternatives to surgery and expected outcomes. After reviewing all these elected to proceed with surgery. All questions were answered. Informed consent was signed. Description of Procedure Patient was identified in the preoperative holding area where the surgical site of the right knee was marked. Patient was brought back to the operating room, placed on the operating room table, and IV sedation was administered. All bony prominences were padded. Perioperative antibiotics and tranexamic acid were administered. Exam under anesthesia was performed. He had a 10 degree flexion contracture and was able to flex up to 135 degrees. The surgical site was prepped and draped in the normal sterile fashion. Prior to incision a multidisciplinary timeout was called. All in the room were in agreement. We began by exsanguinating the limb with an Esmarch bandage. Tourniquet was inflated to 250 mmHg. A 14 cm long incision was made over the anterior aspect of the knee. I dissected through the subcutaneous tissues to the level of the fascia. Full-thickness flaps are raised above the fascia. A median parapatellar arthrotomy was made. Half the fat pad was excised. A medial release was performed with Bovie electrocautery on the proximal tibia. Synovitis in the suprapatellar pouch was removed. The patella was then everted and held with 2 towel clips. The thickness of the patella was measured at 27 mm. Patellar resection was performed. Caliper showed the patella thickness now to be 16 mm. A size 38 mm trial was placed and had a great fit. The 3 drill holes were placed then the trial button was placed. The patellar thickness was now 26 mm which I was very happy with. The patellar trial was then removed, the patella was everted and the knee was flexed up. Osteophytes were removed from the femoral condyles and intercondylar notch. The ACL and PCL were excised. Intramedullary drill guide was drilled into the femur. Distal femoral cutting guide was placed set at 5 degrees of valgus to resect 13 mm off the distal femur. Distal femoral resection was made without difficulty. The tibia was then exposed. The lateral meniscus was sharply excised. The tibial cutting jig was set 2 clicks medial at the ankle to resect 10 mm off the less involved compartment. The jig was then pinned in position and the tibial cut was made. We then brought the knee into full extension. Lamina spreaders were placed. The medial meniscus was excised. The extension block was then placed for 12.5 mm thickness poly. This gave us full extension and excellent stability to varus and valgus. Next the knee was flexed up and the femoral sizing guide was placed. The patient sized to a size 4 femur. The 3 degree external rotation jig was used to create 2 holes in the distal femur. The jig was removed and the holes were compared to Whitesides axis and the epicondylar axis. We were happy with the rotation, and therefore placed a size three 4-in-1 cutting jig and pinned this into position. Our 4 cuts were made. The cutting jig was removed. The flexion block was then placed with the knee held at 90 degrees. There was excellent stability to varus and valgus at 90 degrees with no gapping medially or laterally. Next the box cutting jig was placed on the distal femur. The box cut was made and the femoral trial was impacted into position. The tibia was sized to a 4 for a rotating platform component. The tibial tray was positioned in external rotation on the cut tibial surface and the knee was brought through a full range of motion. We then pinned the tibial tray into position and used the intramedullary drill followed by the keel punch. The trial polyethylene was then placed and the knee was brought through a full range of motion. I was very happy with the stability through a full range of motion. Next the trial components were removed. I then injected the posterior capsule and periosteum with the periarticular injection cocktail. Topical tranexamic acid was then placed. The bone cuts were then irrigated and dried while the cement was mixed on the back table. The femoral component was cemented on first. Excess cement was removed. A lap sponge was placed over the femoral component for protection, then the tibia was subluxated anteriorly. The tibial component was then cemented in place. Again excess cement was removed. The trial polyethylene was then placed and the knee was brought into full extension and held there until the cement cured. The patella was cemented and clamped. Dilute Betadine solution was then allowed to irrigate the knee while the cement cured. Once the cement was fully cured, the tourniquet was let down and meticulous hemostasis was ensured. The wound was irrigated out with copious amounts normal saline. The knee was brought through a full range of motion and we are very happy with the patella tracking and the stability. Therefore, the trial tibial polyethylene was removed and the real size 4 polyethylene 12.5 mm thickness was placed. We then began to close. Interrupted 0 Vicryl suture was used to repair the patellar retinaculum in [id number] fashion. The quadriceps and patellar tendons were run with #1 Ethibond. The deep dermal layer was closed with running 2-0 Vicryl. Natty were used for the skin. A compressive dressing was placed. Patient's sedation was lifted and was transferred to recovery room in stable condition. Summary of implants: Depuy Sigma Posterior Stabilized Cemented Femur, size 4 Tibial Tray cemented, size 4 Tibial polyethylene insert, 12.5 mm thickness, size 4 Oval come patella, size 38 2 batches of simplex bone cement Postoperative course: Patient will be admitted to the floor for pain control and monitoring. Weightbearing as tolerated with no knee range of motion for 48 hours. Aspirin for DVT prophylaxis. I attest to the content of the Intraoperative Record and any orders documented therein. Any exceptions are noted below.
[2019-11-28] MEDS ORDERED: TAMSULOSIN HCL 0.4 MG CAP PO PRN (09:26)
[2019-11-28] MEDS ORDERED: DiphenhydrAMINE HCL 50 MG/ML VIAL IV PRN (09:26)
[2019-11-28] MEDS ORDERED: METOCLOPRAMIDE HCL INJ 5 MG/ML 2 ML VIAL IV PRN (09:26)
[2019-11-28] MEDS ORDERED: MAGNESIUM HYDROXIDE SUSP 30 ML UDC PO PRN (09:26)
[2019-11-28] MEDS ORDERED: bisacodyL 10 MG SUPP PR PRN (09:26)
[2019-11-28] MEDS ORDERED: NALOXONE HCL 0.4 MG/1 ML VIAL/CARP IV PRN (09:26)
[2019-11-28] MEDS ORDERED: TRAMADOL HCL 50 MG TABLET PO PRN (09:26)
[2019-11-28] MEDS ORDERED: ALUMINUM/MAGNESIUM SUSP 30 ML UDC PO PRN (09:26)
--- NOTE | 2019-11-28 09:26 | Operative Report ---
Post Operative Report Pre & Post Diagnosis Operation Date: 11/28/19 07:15 Pre-Op Diagnosis: Right Knee Osteoarthritis Post-Op Diagnosis: Right Knee Osteoarthritis I identified the patient and participated in the time-out.: Yes Procedure Operation Date: 11/28/19 07:15 Actual Procedures p Right Total Knee Arthroplasty(Right) - Collin Terrell MD Surgeon Collin Terrell MD Visual Merchandising Assistant Kuldeep Flores MD; JOHN Unger PA-C Estimated Blood Loss 100 Findings Consistent with Post-Op Diagnosis Specimens none Complications none Disposition Accompanied Patient To Recovery: Yes Disposition: Recovery Room Description of Procedure I was present during the entire case assisting with positioning, retraction, wound closure and dressing application. Fellow also assisted and I served as an extra set of hands. Please see Dr. Terrell procedure note for specifics of the case. I attest to the content of the Intraoperative Record and any orders documented therein. Any exceptions are noted below.
--- NOTE | 2019-11-28 10:12 | XRay Report ---
RIGHT KNEE 2 VIEWS History: Right total knee arthroplasty. Degenerative arthritis. Postop. FINDINGS: The patient is status post a right total knee arthroplasty. The hardware is intact. No frac ture or dislocation. Skin dusty are in place. IMPRESSION: Right total knee arthroplasty. No evidence for hardware complication. ACT 112: Negative or not required by law. Electronically signed by: Mauricio Isbell M.D. 11/28/2019 10:10 AM
--- NOTE | 2019-11-28 10:43 | Anesthesiology Progress Note ---
Date of Service November 28, 2019 Anesthesia Post Procedure Vital Signs Vital Signs: Temp Pulse Pulse Resp BP Pulse Ox 11/28/19 10:30 83 16 114/62 99 11/28/19 10:20 90 18 117/63 97 11/28/19 10:10 88 20 120/71 97 11/28/19 10:00 84 18 121/72 99 11/28/19 09:50 83 16 113/65 99 11/28/19 09:40 86 16 113/61 98 11/28/19 09:30 85 18 97/70 L 98 11/28/19 09:25 36.2 C L 86 20 102/62 96 11/28/19 05:34 37.1 C 68 18 125/68 97 Pain Intensity Right Knee: Pain Intensity: 0 Transfer of Care Handoff Completed per policy Notes Mental Status: alert / awake / arousable and participated in evaluation Patient Amnestic to Procedure: Yes Nausea / Vomiting: adequately controlled Pain: adequately controlled Airway Patency, RR, SpO2: stable & adequate BP & HR: stable & adequate Hydration State: stable & adequate Neuraxial Anesthesia: was administered and sensory block is resolving Anesthetic Complications: no major complications apparent and Pt Satisfied with anesthetic care
[2019-11-28] MEDS: SODIUM CHLORIDE 0.9% 1000ML 1,000 ML IV SCH ×2 (12:01→21:44)
--- NOTE | 2019-11-28 12:18 | Operative Report ---
Post Operative Report Pre & Post Diagnosis Operation Date: 11/28/19 07:15 Pre-Op Diagnosis: Right Knee Osteoarthritis Post-Op Diagnosis: Right Knee Osteoarthritis I identified the patient and participated in the time-out.: Yes Procedure Operation Date: 11/28/19 07:15 Actual Procedures p Right Total Knee Arthroplasty(Right) - Collin Terrell MD Surgeon Collin Terrell MD Inspector [employer] Kuldeep Flores MD; JOHN Unger PA-C Estimated Blood Loss 100 Findings Consistent with Post-Op Diagnosis Specimens Knee bone cuts Complications none Disposition Accompanied Patient To Recovery: Yes Disposition: Recovery Room Description of Procedure Supine, standard prep and drape, time out, tourniquet Right Total Knee Arthroplasty Please see Dr Terrell's procedure notes for specific details I was present throughout the case, assisted for wound closure and transferred the patient to PACU in stable condition I attest to the content of the Intraoperative Record and any orders documented therein. Any exceptions are noted below.
[2019-11-28] MEDS: KETOROLAC TROMETHAMINE 15 MG/ML VIAL IV SCH ×3 (13:10→23:57)
[2019-11-28] MEDS: ACETAMINOPHEN 500 MG TAB PO SCH ×2 (13:11→21:44)
[2019-11-28] MEDS: GABAPENTIN 300 MG CAP PO SCH ×2 (13:11→20:25)
[2019-11-28] MEDS: CHECK SCOPOLAMINE PATCH PLACEMENT SCH (16:05)
[2019-11-28] MEDS: CEFAZOLIN 2000MG 2,000 MG/15 ML SYR IV SCH ×2 (16:05→23:58)
[2019-11-28] MEDS: DOCUSATE SODIUM 100 MG CAP PO SCH (20:25)
[2019-11-28] MEDS: ASPIRIN 81 MG ECTAB PO SCH (20:25)
[2019-11-28] MEDS ORDERED: SENNA 8.6 MG TAB PO SCH (21:00)
[2019-11-29] MEDS: CHECK SCOPOLAMINE PATCH PLACEMENT SCH ×2 (00:01→08:17)
[2019-11-29] MEDS: ACETAMINOPHEN 500 MG TAB PO SCH ×2 (05:11→13:21)
[2019-11-29] MEDS: KETOROLAC TROMETHAMINE 15 MG/ML VIAL IV SCH ×2 (05:11→11:20)
[2019-11-29 06:07] LABS: Mean Corpuscular Hemoglobin 30.7 pg (25-34); Mean Corpuscular Hgb Conc 33.3 g/dL (32-36); Mean Corpuscular Volume 92.2 fL (80-100); Mean Platelet Volume 10.2 fL (7.4-10.4); Platelet Count 164 K/uL (130-400); RDW Coefficient of Variation 13.2 % (11.5-14.5); RDW Standard Deviation 44.5 fL (36.4-46.3); Red Blood Count 3.58 M/uL (4.7-6.1); White Blood Count 17.97 K/uL (4.8-10.8)
[2019-11-29 06:39] LABS: BUN Creatinine Ratio 18.9 (10-20); Creatinine Clr Calc Pharmacy 49.6 ml/min; Est GFR (African American) 66.4; Est GFR (Non-African American) 57.3; Potassium 4.4 mmol/L (3.5-5.1)
--- NOTE | 2019-11-29 07:50 | Anesthesiology Progress Note ---
Date of Service November 29, 2019 Anesthesia Post Procedure Vital Signs Vital Signs: Temp Pulse Pulse Resp BP Pulse Ox 11/29/19 03:57 36.5 C 58 L 18 110/58 L 97 11/28/19 23:45 36.4 C L 62 18 120/60 95 11/28/19 21:22 36.6 C 72 18 99/59 L 92 11/28/19 14:14 36.5 C 75 16 115/54 L 94 11/28/19 13:11 74 17 114/58 L 94 11/28/19 12:22 36.4 C L 78 16 113/64 94 11/28/19 11:55 36.4 C L 71 16 114/62 94 11/28/19 11:10 36.6 C 88 16 109/63 99 11/28/19 10:50 81 12 116/63 99 11/28/19 10:40 36.4 C L 85 12 125/73 99 11/28/19 10:30 83 16 114/62 99 11/28/19 10:20 90 18 117/63 97 11/28/19 10:10 88 20 120/71 97 11/28/19 10:00 84 18 121/72 99 11/28/19 09:50 83 16 113/65 99 11/28/19 09:40 86 16 113/61 98 11/28/19 09:30 85 18 97/70 L 98 11/28/19 09:25 36.2 C L 86 20 102/62 96 Pain Intensity Right Knee: Pain Intensity: 0 Notes Mental Status: alert / awake / arousable and participated in evaluation Patient Amnestic to Procedure: Yes Nausea / Vomiting: adequately controlled Pain: adequately controlled Airway Patency, RR, SpO2: stable & adequate BP & HR: stable & adequate Hydration State: stable & adequate Neuraxial Anesthesia: was administered and sensory block resolved Anesthetic Complications: no major complications apparent and Pt Satisfied with anesthetic care
[2019-11-29] MEDS ORDERED: dexAMETHasone 4 MG TAB PO SCH (08:00)
[2019-11-29] MEDS: ASPIRIN 81 MG ECTAB PO SCH (08:17)
[2019-11-29] MEDS: DOCUSATE SODIUM 100 MG CAP PO SCH (08:17)
[2019-11-29] MEDS: GABAPENTIN 300 MG CAP PO SCH ×2 (08:18→13:21)
[2019-11-29] MEDS ORDERED: METOPROLOL SUCC 25MG EXT REL TAB PO SCH (09:00)
[2019-11-29] MEDS ORDERED: CeleBREX 200 MG CAP PO SCH (09:00)
[2019-11-29] MEDS ORDERED: MULTIVITAMIN TAB PO SCH ×2 (09:00)
--- NOTE | 2019-11-29 12:34 | Orthopedic Progress Note ---
Date of Service November 29, 2019 Assessment & Plan (1) Status post right knee replacement: Discussed with patient that his peroneal nerve is not firing normally, most likely from the numbing medication we inject around the knee during surgery. The fact that he's firing his EHL and peroneals makes me think this should resolve with observation. He needs to be careful walking until it resolves so he doesn't trip over his foot. A boot can be prescribed if needed PT/OT this AM D/C home if passes PT ASA for DVT prophylaxis F/u JOHN Unger in 2 weeks Present on Admission?: Yes (2) Peroneal nerve palsy: Present on Admission?: Yes Admission and Anticipated Discharge Date Admission Date: November 28, 2019 Subjective Not having any pain in the knee. Has had some numbness in his foot and difficulty dorsiflexing ankle, but is able to malinda foot and raise his toes. Physical Exam Physical Exam: EHL and peroneals intact. Flicker of tibant. Decreased sensation to LT in peroneal nerve distribution. Results & Data ([facility]) Vital Signs (Past 12 Hours) Vital Signs Temp Pulse Resp BP BP Pulse Ox 11/29/19 08:37 36.7 C 73 16 110/58 L 108/51 L 98 11/29/19 07:53 36.7 C 73 16 108/51 L 98 11/29/19 03:57 36.5 C 58 L 18 110/58 L 97 (1) Peroneal nerve palsy Laterality: right Qualified Code(s): G57.31 - Lesion of lateral popliteal nerve, right lower limb
--- NOTE | 2019-11-29 14:51 | Orthopedic Progress Note ---
Date of Service November 29, 2019 Assessment & Plan (1) Status post right knee replacement: Patient's dressings were not removed. He has his knee immobilizer on. Patient will continue to use his knee immobilizer when weightbearing. Continue using his walker as previously instructed. Follow-up in the office in 2 weeks for staple removal. Written discharge instructions were provided. Prescriptions have already been sent to his pharmacy. Admission and Anticipated Discharge Date Admission Date: November 28, 2019 Subjective Patient is seen in his room this afternoon. He is sitting in a chair. Alert, talkative. He has no complaints. He is ready for discharge to home. States he has been up walking with assistance. He denies any chest pain, shortness of breath, nausea, or vomiting. His is waiting for him in the parking lot. Review of Systems Review of Systems: Unchanged from previous exam yesterday Physical Exam Physical Exam: General: Well-developed, well-nourished, elderly white male, in no acute distress. Sitting in a chair. Conversive. Pleasant. Musculoskeletal: Patient has his knee immobilizer on. He is able to perform a straight leg raise at this time. Intact motor function of his right ankle and toes. Neurologic: Gross sensation is intact across the right thigh, ankle, and toes, by soft touch. He does have diminished peripheral sensation at baseline, but states he cannot clearly feel me squeezing. Peripheral pulses are 2+. Results & Data ([facility]) Vital Signs (Past 12 Hours) Vital Signs Temp Pulse Resp BP BP Pulse Ox 11/29/19 08:37 36.7 C 73 16 110/58 L 108/51 L 98 11/29/19 07:53 36.7 C 73 16 108/51 L 98 11/29/19 03:57 36.5 C 58 L 18 110/58 L 97
--- NOTE | 2019-11-29 16:20 | Discharge Summary ---
Date of Service November 29, 2019 Admission HPI Per Admitting Provider History of Present Illness (including history relevant to procedure): This 74-year-old male presents to the clinic today for his preoperative history and physical. Patient states that his right knee pain has worsened significantly over the last 2 years and now he is only able to walk less than 100 yards before he has to stop. He cannot mow his lawn very well anymore. Standing for any period of time bothers him. He is using a cane. He feels the pain in the anterior aspect of the knee predominantly. Patient is failed numerous conservative measures including physical therapy, use of nonsteroidal agents and injections. He is ready to proceed with surgical intervention to improve his quality of life. Past Medical History: Problems: Right knee DJD Pre-op exam Left knee pain Right knee pain Osteoporosis Gastroenteritis Sinusitis Nephrolithiasis Fusion of spine, thoracic region Lipoma of lower back. Enlarged prostate BPH (benign prostatic hyperplasia) Atrial flutter Status post mitral valve replacement with bioprosthetic valve PAF (paroxysmal atrial fibrillation) Secondary left ventricular dilation Mitral regurgitation Diverticulitis Dark stools Weight disorder Polyarthritis Right sided sciatica Chronic low back pain Low backache Heart murmur Osteoarthritis Skin lesion Mitral valve prolapse DJD (degenerative joint disease) Diverticulosis Spinal stenosis of lumbar region Congenital cerebral cyst Procedure History Procedure Procedure Date Comments Lithotripsy Back - Lumbar spine DXA scan T score 07/01/2019 - 1. Femur neck L is 0.684 g/cm2 w/ T-score of -3.02. Femur neck R is 0.712 g/cm2 w/ T-score of -2.83. Femur total L is 0.722 g/cm2 w/ 0.722 g/cm2 w/ T- score of -2.64. Femur total R is 0.735 g/cm2 w/ T-score of -2.55. Forearm radius 33% is 0.719 g/cm2 w/ T-score of -1.06. Z-score of -1.8 CT of abdomen and pelvis 10/17/2017 - duplicated left renal collecting system with residual periureteral fat stranding and mild left urothelial thickening likely from interval passage of the previously noted 6-7 mm lower pole moiety left ureteral calculus. nonobstructing punctate left renal calculus interval extension of posterior lumbar fusion hadware, which now spans from T12 to S1 with laminectomy defect at L2 Chest X-ray 10/17/2017 - No acute cardiopulmonary disease Venous doppler ultrasonography 10/17/2017 - normal study Spinal fusion 09/28/2017 - 1- Removal of posterior segmental instrumentation L3-S1. 2- expiration of fuslion L3-S1. 3 -lumbar decompression medial facetctomies foraminotomies L1-L2. 4 - posterior spinal fusion T12-L4. 5 -placed a posterior segmental instrumentionat T12-S1. 6 - interbody fusion L2-3. 7 - placement of titanium cage 11 x 26 mm at L2-3. 8- placement of locally harvested autograft in the posterior lateral gutters. 9 - placement InFUSE collagen sponge, mass graft in the posterior gutters and ostial amp bone graft in the interbody space. - Revision decopression, medial facetectomies & forarminotomy L3-L4, L4-L5, L5- S1. Posterior spinal fusion L3-L4, L4-L5, L5-S1. Placement posterior segmental instrumentation using Medicrea rods & screws L3-L4, L4-L5, L5-S1. Interbody fu tacos L4-L5. Placement of PEEK cage [id number] at Lf-L5. Placement of locally harvested morcellized autograft in posterior gutters. Placement onf infuse collagen sponge combined with Mastergraft in posterior gutters & Amaya bone graft in the interbody space. CT of abdomen and pelvis 09/12/2017 - findings suggest sacral decubitus ulcer and possible bilateral ischial decubitus ulcers. - 1. There is a 7 mm obstructing calculus in the left proximal ureter. This causes mild left-sided hydronephrosis. 2. There is an additional nonobstructing left renal calculus. No renal calculi are clearly identified on this contrast- enhanced examination. 3. 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 4. Moderate colonic fecal retention. No bowel obstruction is seen. 5. Moderate sigmoid diverticulosis without CT evidence of acute diverticulitis. 6. Cardiomegaly and hiatal hernia. 7. Prostatomegaly. 8. There is lucency around the interpedicular screws at S1 suggesting lossening. Clinica correlation will be required. 9. Additional findings as above. DEXA - Dual energy X-ray photon absorptiometry 09/04/2017 - Tscore of : left femur neck is -2.9, right femur neck -3.3, right forearm radius -1.5. Zscore of -2.0, which is very low for age & sec. Causes of secondary bone loss should be investigated. Electrical cardioversion 05/04/2017 - Synchronized biphasic shock was delivered using 100 J with conversion to a sinus rhythm. Chest angiography 02/17/2017 - Impression:1. No acute aortic pathology or evidence of pulmonary thromboembolic disease.2. Prior median sternotomy with placement of prosthetic mitral valve.3. Small left pleural effusion with subsegmental left basilar consolidation suggesting compressive atelectasis or pneumonia. Mild layering secretions are present within the esophagus and bronchus intermedius with associated bronchial wall thickening which raises the possibility of aspiration.4. Nonobstructing calculi of the superior pole left kidney incidentally noted.5. Right is acromiale. Venous doppler ultrasonography right lower extremity 01/31/2017 - Impression: Normal study. see report right foot 3 views 01/31/2017 - Impression: No acute osseous injury MVR - Mitral valve replacement 01/13/2017 [facility] procedure 12/28/2016 - Normal LV size and function. LVEF 60-65%. No regional wall motion abnormalities. Normal RV size & function. Severe mitral valve prolapse/partial flair leaflet (P1/P2 segment). Severe eccentric mitral regurgitation with systolic flow reversal in right lower pulmonary vein. No LA appendage thrombus. No significant aortic pathology. Coronary angiography 12/15/2016 - Left & right. Normal coronary arteries. Normal intracardiac filling pressu re. Normal pulmonary arter pressures. Excision biopsy 03/22/2016 - right forehead Plain X-ray of toes abnormal 09/24/2015 - Moderate osteparthritis at the first MTP joint Shave biopsy and cauterization of skin 09/15/2015 - Right lateral forehead Left Shoulder Rotator Cuff Repair 07/06/2015 - right shoulder complete tear of right rotator cuff MRI of lumbar spine 06/05/2015 - Severe multivertebra disc degeneration and facet osteoarthritisMultilevel central canal stenosis, moderate at L2-3 and L3-4Multilevel foraminal stenosis, severe bilaterally at L4-5 (right greater yhan left) and severe on the left L3- 4 Hemilaminectomy decompression hemilaminotomies L3-4 and L4-5. About 2013 - decompression hemilaminotomies L3-4 and L4-5. Colonoscopy 11/22/2011 - Repeat colonoscopy in 10 years for screening purposesDiverticulosis in the sigmoid colon and in the descending colon XR Abdomen 10/06/2011 - [facility] EKG 08/29/2011 - [facility] Transthoracic Echocardiography 07/19/2011 - [facility] XR Right Knee 04/04/2010 - [facility] MRI Lumbar Spine with and without contrast 05/19/2006 - [address] XR Lumbar Spine 05/06/2006 - [facility] XR Right Thumb 05/06/2006 - [facility] Hernia Repair 05/02/2005 XR Left Clavicle 12/16/2002 XR: Clavicle, Pelvis, and tibia and fibula 04/23/2002 - [facility] ECG 05/03/2001 - [facility] Tonsillectomy and adenoidectomy About 1951 Allergies and Sensitivities: NKA Social history: Completely unremarkable Family history: Cancer Current Home Meds: (Last Updated 11/05 11:16) (amoxicillin 500 mg oral capsule) 2,000 mg PO ONCE as needed for dental procedure. -give 1 hour prior to dental procedure(CeleBREX 50 mg oral capsule) 50 mg PO bidsulfate (ferrous sulfate 325 mg (65 mg elemental iron) oral tablet) 325 mg PO Daily(gabapentin 300 mg oral capsule) 300 mg PO tid(metoprolol succinate 25 mg oral tablet, extended release) 25 mg PO Dailywith minerals (Centrum Silver Men's oral tablet) 1 tab PO Daily Principal Diagnosis Right Knee Osteoarthritis Discharge Data Allergies Allergy/AdvReac Type Severity Reaction Status Date / Time No Known Allergies Allergy Verified 11/28/19 05:44 Consultations 11/28/19 09:27 Consult Case Management - Discharge Planning Routine Procedures Performed Operation Date: 11/28/19 07:15 Actual Procedures p Right Total Knee Arthroplasty(Right) - Collin Terrell MD Ordered Studies 11/28/19 05:00 US - OR guided needle placemen Routine 11/28/19 07:30 US - OR guided needle placemen Routine Hospital Course (1) Status post right knee replacement: Patient underwent Right Total Knee Replacement on 12-05-[address] Terrell without complications. He was admitted to Med/Surg 3rd floor post-op. Patients pain was controlled on PO medication. He tolerated PO diet and fluids. He worked with PT/OT. Weightbearing as tolerated R LE with walker and knee immobilizer when ambulating for 48hrs post-op. DVT prophylaxis consisted of RANDOLPH HOSE, foot pumps, and ASA 81mg BID. POD 1 labs were WNL. Vitals stable. The patients peroneal nerve is not firing normally, most likely from the numbing medication injected around the knee during surgery. The fact that he's firing his EHL and peroneals, this should resolve with observation. He needs to be careful walking until it resolves so he doesn't trip over his foot. A boot can be prescribed if needed. Patient was deemed stable to DC on POD 1. His silverlon waterproof dressing is intact. He will be discharged with medications tramadol, celebrex, ASA 81mg, tylenol, and oxycodone. He will receive HHPT. He will continue DVT prophylaxis with ASA 81mg BID and RANDOLPH HOSE. Silverlon to remain on until f/u. Weightbearing as tolerated R LE with walker. Knee immobilzer when ambulating for another 24hrs and can then DC. He was advised to call the office or go to the ED with any questions or concerns. Follow-up appointment scheduled for 2wks at [facility]. Please see below for details discharge instructions. Total Time Total Time Spent Total Time Spent (In Minutes): 20 Discharge Plan Discharge Items Patient Disposition: Home - Home Health Services Reason For Visit: Right Knee Osteoarthritis Discharge Diagnosis: Right Knee Osteoarthritis Condition on Discharge: Good Activity: As commented below Lifting: None Bathing: Keep incision dry Bathing Comment: May shower tomorrow Sexual Activity: Wait until after follow-up appointment Exercise/Sports: Wait until after follow-up appointment Driving/Machine Use: No driving until cleared by Dr. Terrell Weightbearing: Full weightbearing Weightbearing Comment: as tolerated with immobilizer and crutches Non-emergency contact: Primary Care Provider and Surgeon Call non-emergency contact if: you have any medication questions, your pain is not controlled, your temperature is above 101.5, your wound has increased drainage and your wound pain has increased Follow-up/Referrals: Bernardino Flor [Primary Care Provider] - Diet: Regular Addtl Attending Provider Instructions: Post-operative Instructions Dear Patient and Family/Friends, Before you are discharged from the hospital, it is important to know what to expect when you get home after surgery. To that end, we have created this sheet of discharge instructions which covers many commonly asked questions. Make sure you go through this sheet in its entirety with your nurse before you are discharged. Please note that we will go over the specifics of your surgery and recovery when you return for your first post-operative visit. Sincerely, Dr. Terrell Medications 1. Tramadol 50 mg: take 1-2 tabs every 4-6 hours as needed for pain control. #30 tabs will be sent to your pharmacy for belt picker. 2. Celebrex 200 mg: take 1 tab daily as you were previously. 3. Aspirin 81 mg: take 1 tab twice daily for 30 days post operatively. Please purchase. 4. Extra Strength Tylenol 500 mg: take 1 tab every 6-8 hours as needed for pain. Please purchase. 5. Oxycodone 5 mg: a prescription for this narcotic medication will also be sent to your pharmacy. You should only use if tramadol is ineffective. Pain Expect to be in a fair amount of pain after surgery. Remember, our goal is not to eliminate your pain, but to make it tolerable. It is a good idea to stay ahead of your pain by taking the medications you were prescribed once you get home. Typically, the pain starts improving 3-7 days after surgery. You should start weaning off the narcotic pain medication (oxycodone, hydrocodone, hydromorphone, morphine) as soon as your pain improves. Please call our office if your pain is not adequately controlled. Ice Ice your operative site at least 5 times a day for 15-30 minutes at a time. Make sure you have a thin cloth between the ice or cooling unit and your skin to prevent granado bite. This is especially important if you received a nerve block. Continue icing your operative site for the first 5-7 days after surgery, then as needed. Diet/Nausea/Vomiting Start by drinking clear liquids and eating crackers. If you can tolerate this, then you may resume your normal diet. If you feel nauseated or vomit, take Zofran/ondansetron (if prescribed). Please call our office if you have in tractable nausea or vomiting, or, if after hours, you may go to the Emergency Room for help. Constipation Constipation is a common side effect of narcotic pain medication. If you have not had a bowel movement within 2 days after surgery, we recommend purchasing an over the counter laxative such as Milk of Magnesia, Dulcolax, or Miralax from a local pharmacy, and taking it as instructed. Call our clinic if any questions. Braces If you were placed in a knee brace, it must be worn when ambulating for a total of 48hrs post-op. Nerve block The anesthesia team sometimes places a nerve block to help with post-operative pain control. This results in significant numbness and inability to move the extremity. The nerve block usually wears off in 8-12 hours, but sometimes can last up to 24 hours. Please call our office if you are still unable to move your extremity after 24 hours, unless you received a pain pump to take home. Nerve blocks typically wear off quickly, so start taking pain medication as soon as you start feeling soreness near your surgical site. Weight bearing and Range of Motion. As tolerated Physical therapy You will be given a prescription for outpatient physical therapy or occupational therapy at your first post-operative appointment. Until then, home health physical therapy. Wound care and showering We will inspect your wound at your first post-operative visit, and may do a dressing change at that time. Most patients will be in a water-proof dressing that is removed 14 days after surgery. It is normal to see some dried blood on the dressing. Do not remove your dressing, paper strips or sutures yourself unless you are given permission. Showering is allowed the day after surgery. Do not scrub or remove any dressings. The wound should not be submerged underwater (i.e. in a bathtub or pool) until 4 weeks after surgery RANDOLPH stockings If you were given white stockings, these are to be worn at all times except to shower (on both legs) for the first 2 weeks after surgery. Driving You may not drive while taking narcotic pain medication or while in a cast, splint, sling or brace. You, the patient, need to make the final determination about when you are safe to drive, however, the earliest you may consider driving after surgery is below: Hand/Wrist/Elbow Surgery: 3 days Shoulder Surgery: 2 weeks Hip,/Knee/Ankle Surgery: 4 weeks Fracture repair: 6 weeks Return to Work Your return to work depends on what surgery was done and what type of work you d o. Please bring any paperwork your employer needs completed to your first post- operative visit. Also, bring a description of your job duties, as this helps us to understand what risks you may face at work. Travel Avoid long distance travel (greater than 1 hour) in airplanes and cars for the first 6 weeks after surgery. If you must travel, you need to have a Doppler ul trasound done before you travel to rule out a blood clot in your legs. Follow-up You should have a follow-up appointment already scheduled 2wks after surgery. If not, please contact our office to make this appointment before you leave the hospital. When to call the office It is normal to have swelling and bruising in the limb that was operated on. This will improve with time. It is also normal to have fevers for the first 2 days after surgery. Reasons you should call your doctor include: Uncontrolled pain; Nausea, vomiting, or constipation that does not improve with medication; Fevers over 101.5, chills, sweats; Drainage or bleeding from the wound; Foul odor; Spreading areas of redness; Any other concerns Pending Studies at Discharge: No Stand-Alone Forms: My [facility], Opioid Pain Management Medications and DC Order Prescriptions: New tramadol 50 mg tablet 50 mg PO Q6H MDD 1-2 tab every 4-6 hours Qty: 30 RF: 0 oxycodone 5 mg tablet 5 mg PO Q6H PRN (Reason: pain) Qty: 20 RF: 0 Continued metoprolol succinate 25 mg tablet extended release 24 hr 25 mg PO QAM Qty: 90 RF: 3 amoxicillin 500 mg capsule 2,000 mg PO .COMPLEX RF: 0 celecoxib [Celebrex] 200 mg capsule 200 mg PO DAILY RF: 0 multivitamin Tablet 1 tab PO QAM RF: 0 gabapentin 300 mg Capsule 300 mg PO TID RF: 0 Discharge Orders: Discharge Order (Routine); Ordered 11/29/19 Ordered By: Silverio Edwards/Other Patient Handouts: Knee Arthroscopy Admission Data Admit Date/Time: 11/28/19 09:26 Attending Provider: Collin Terrell Admit Provider: Collin Terrell Primary Care Provider: Bernardino Flor Other Providers: [facility],Home Healthcare Other Interventions: Discharge Summary Assessment (RN) Last Done: 11/29/19 08:37 DC Date/Time DO NOT enter until pt leaves facility: 11/29/19 14:29
[2019-11-30] MEDS ORDERED: CeleBREX 200 MG CAP PO SCH (21:00)
== END 2019-11-29 14:29 | disposition home health service (06) ==
LOC: ASU 05:13 → 3E 05:13

== ENCOUNTER 2024-10-01 08:03 | Inpatient (IN) ==
--- NOTE | 2024-09-18 09:57 | PAT Medication Instructions ---
Medication Instructions Date of Service September 18, 2024 Home Medications Medication Instructions Recorded atorvastatin 10 mg tablet 10 mg PO QPM #90 tabs 09/08/22 metoprolol succinate 25 mg 25 mg PO QAM #90 tabs 10/20/23 tablet,extended release 24 hr multivitamin 1 tab PO QAM amoxicillin 500 mg capsule 2,000 mg PO .COMPLEX aspirin 81 mg tablet,delayed release 81 mg PO DAILY atorvastatin 10 mg tablet 10 mg PO QPM gabapentin 300 mg capsule 300 mg PO TID denosumab 60 mg/mL subcutaneous syringe (Prolia) 60 mg subcut .Q6MO metoprolol succinate 25 mg tablet,extended release 24 hr 25 mg PO QAM cholecalciferol (vitamin D3) 25 mcg (1,000 unit) capsule 25 mcg PO DAILY acetaminophen 325 mg tablet 325 mg PO QID PRN furosemide 20 mg tablet 20 mg PO QAM PRN Continue as directed amoxicillin 500 mg capsule 2,000 mg PO .COMPLEX ASK your prescriber and surgeon aspirin 81 mg tablet,delayed release 81 mg PO DAILY denosumab 60 mg/mL subcutaneous syringe (Prolia) 60 mg subcut .Q6MO DO NOT take the morning of surgery multivitamin 1 tab PO QAM cholecalciferol (vitamin D3) 25 mcg (1,000 unit) capsule 25 mcg PO DAILY furosemide 20 mg tablet 20 mg PO QAM PRN Take morning of surgery With a small sip of water, OTHERWISE NOTHING TO EAT OR DRINK AFTER MIDNIGHT: gabapentin 300 mg capsule 300 mg PO TID metoprolol succinate 25 mg tablet,extended release 24 hr 25 mg PO QAM acetaminophen 325 mg tablet 325 mg PO QID PRN(if needed) Take evening before surgery atorvastatin 10 mg tablet 10 mg PO QPM gabapentin 300 mg capsule 300 mg PO TID acetaminophen 325 mg tablet 325 mg PO QID PRN(if needed) Other Notes If you have any questions please call us at [phone] or [phone] or [phone] or [phone]
--- NOTE | 2024-09-19 13:42 | Anesthesiology Consultation ---
Date of Service September 19, 2024 Assessment & Plan (1) Encounter for pre-operative examination: Plan - awaiting 09/24/24 [place] cardiology pre-operative evaluation. - will request [facility] PCP clearance. Chart Review Chart Review: Pending: Refer to Additional Notes / Consult section and Patient seen in Pre Admission Testing Teaching & Discussion Pre-Anesthesia Teaching/Discussion Notes: Instructed NPO after midnight before surgery, except medications with 15 cc of water. Medication instructions provided according to the PAT guidelines. History Surgery Operation Date: 10/01/24 10:05 Proposed Procedures p C5-T3 Posterior Cervical Decompression and Fusion with Spinal Cord Monitoring - Royal Bah DO Height/Weight Height: 5 ft 6.5 in Weight: 74.9 kg Allergies Allergy/AdvReac Type Severity Reaction Status Date / Time amoxicillin [From Augmentin] AdvReac Unknown Diarrhea Verified 09/17/24 09:51 clavulanic acid AdvReac Unknown Diarrhea Verified 09/17/24 09:51 [From Augmentin] Medications Home Medications Medication Instructions Recorded Confirmed Last Taken multivitamin 1 tab PO QAM 11/06/18 09/17/24 11/27/19 06:30 amoxicillin 500 mg capsule 2,000 mg PO .COMPLEX 05/16/19 09/17/24 03/15/18 aspirin 81 mg tablet,delayed 81 mg PO DAILY 07/07/20 09/17/24 Unknown release atorvastatin 10 mg tablet 10 mg PO QPM #90 tabs 09/08/22 09/17/24 Unknown gabapentin 300 mg capsule 300 mg PO TID 02/28/23 09/17/24 Unknown denosumab 60 mg/mL subcutaneous 60 mg subcut .Q6MO 08/18/23 09/17/24 Unknown syringe (Prolia) metoprolol succinate 25 mg 25 mg PO QAM #90 tabs 10/20/23 09/17/24 Unknown tablet,extended release 24 hr cholecalciferol (vitamin D3) 25 25 mcg PO DAILY 08/08/24 09/17/24 Unknown mcg (1,000 unit) capsule acetaminophen 325 mg tablet 325 mg PO QID PRN Pain 09/17/24 09/17/24 Unknown furosemide 20 mg tablet 20 mg PO QAM PRN edema 09/17/24 09/17/24 Unknown Past Medical History Medical History (Updated 09/19/24 @ 14:13 by Nataly Mullins PA-C) Acid reflux occasional ERICKA positive Anemia PCP monitoring per pt Basal cell carcinoma s/p excision-right baptism BPH (benign prostatic hyperplasia) Chronic back pain Edema bilat legs, mild, chronic, denies change or worsening, has prn diuretic Hiatal hernia Slight- occ reflux- mild History of bacterial endocarditis (~1989) ; 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 Exercise / Class Metabolic Activity III < 4 Walking/Shop/Light housework (denies chest discomfort or shortness of breath with usual activities) Past Family History Family History Father Family history of bladder cancer Past Surgical History Surgical History (Updated 09/19/24 @ 14:13 by Nataly Mullins PA-C) History of back surgery x 3; lumbar discectomy and 2 lumbar fusions History of cardiac cath 2017 [facility] - no stents "checking mitral valve" per pt History of cardioversion 04/2017 History of colonoscopy History of ear, nose, and throat (ENT) surgery nasal polyps removed History of endoscopy History of extraction of renal calculus 10/2017 cysto laser lithotripsy and stone retrieval History of heart valve replacement mitral valve replacement - CHARLES 01/13/2017 History of transesophageal echocardiography ([facility]) Hx of hernia repair right inguinal hernia repair Hx of shoulder surgery arthroscopic surgeries bilat Hx of sinus surgery Status post ligation of left atrial appendage Status post total knee replacement, right Past Anesthesia History No Hx of Anesthesia Complications and No Family Hx of Anesthesia Complications History of PONV No Hx of PONV and No Hx of Motion Sickness Social History Smoking Status: Former smoker tobacco type: pipe Do You Dip or Chew Tobacco: No Smoking End Date: QUIT in 1989 Hx Alcohol Use: No Hx Substance Use: No substance use type: does not use Review of Systems Patient denies chest pain, shortness of breath, dyspnea on exertion, snoring, witnessed apneas, fever, chills, cough, wheezing, or palpitations. Physical Exam Vital Signs Vitals BP 121/61 P 61 TEMP 98.1 SP02 97% on RA RESP 18 Physical Patient resting comfortably in chair in no acute distress, alert and oriented, responding appropriately throughout visit Limited cervical extension range of motion without pain TMD 3.5 finger breadths Mallampati Score 3 Dentition: one bridge, several caps/crowns, denies chipped or loose teeth, or implants Lungs: normal respiratory effort. Good air movement, clear throughout to auscultation, no adventitious breath sounds Cardiac: regular rate and rhythm, no murmurs noted Carotid arteries: negative bruit bilat Lab Results Anesthesia Preop Results Results Anesthesia Widget: WBC 7.98 K/ul (4.8-10.8) 08/14/24 Hgb 12.1 g/dl (14.0-18.0) L 08/14/24 Hct 36.4 % (42.0-52.0) L 08/14/24 Plt 242 K/uL (130-400) 08/14/24 Na 140 mmol/L (136-145) 08/14/24 K 4.2 mmol/L (3.5-5.1) 08/14/24 Cl 104 mmol/L (98-107) 08/14/24 CO2 30 mmol/L (21-32) 08/14/24 BUN 21 mg/dl (6-23) 08/14/24 Creat 0.90 mg/dl (0.6-1.4) 08/14/24 Glucose Level 88 mg/dl (70-99(Fasting)) 08/14/24 PT 12.2 Seconds (9.0-12.0) H 09/19/24 PTT 30 Seconds (21-31) 09/19/24 INR 1.1 (0.9-1.1) 09/19/24 Urine Color Yellow 09/19/24 Urine Appearance Clear (Clear) 09/19/24 Urine pH 7.5 (4.5-7.5) 09/19/24 Urine Specific [place] 1.011 (1.000-1.030) 09/19/24 Urine Protein Negative (Negative) 09/19/24 Urine Glucose (UA) Negative (Negative) 09/19/24 Urine Ketones Negative (Negative) 09/19/24 Urine Blood Negative (Negative) 09/19/24 Urine Nitrite Negative (Negative) 09/19/24 Urine Bilirubin Negative (Negative) 09/19/24 Urine Urobilinogen Negative (Negative) 09/19/24 Urine Leukocyte Esterase Negative (Negative) 09/19/24 Blood Type O Positive 09/19/24 Antibody Screen NEGATIVE 09/19/24 Testing Electrocardiogram Date: 09/19/24 Sinus rhythm with PACs, rate 62 bpm Chest X-Ray Date: 09/19/24 No acute findings. Echocardiogram Date: 10/13/23 EF 55-60% No regional wall motion abnormalities Mild cLVH Prosthetic mitral valve is well-seated, normal peak and mean gradients Mild to moderate tricuspid regurgitation No significant change vs 08/09/2022 echo
[2024-10-01] MEDS: LR 60ML/HR IV SCH (08:52)
[2024-10-01] MEDS: LR 15ML/HR IV SCH (08:59)
[2024-10-01] MEDS ORDERED: fentaNYL citrate PF 100 MCG/2 ML VIAL ONE (09:03)
[2024-10-01] MEDS ORDERED: PROPOFOL IV EMULSION 10 MG/ML 20 ML VIAL IV ONE (09:03)
[2024-10-01] MEDS ORDERED: ROCURONIUM BROMIDE 10 MG/ML 5 ML VIAL IV ONE ×2 (09:03→10:31)
[2024-10-01] MEDS: CeleBREX 200 MG CAP PO SCH (09:05)
--- NOTE | 2024-10-01 09:30 | History & Physical Bridge Note ---
Date of Service October 01, 2024 History & Physical Bridge Note I have examined the patient, reviewed the History & Physical and in the interval since the performance of the History & Physical I have noted the following changes of clinical significance: no changes noted
--- NOTE | 2024-10-01 09:31 | History & Physical Report ---
Date of Service October 01, 2024 Assessment & Plan (1) Myelopathy concurrent with and due to spinal stenosis of cervical region: Plan: C5-T3 posterior cervical decompression and fusion History of Present Illness Chief Complaint: Cervical radiculopathy and myelopathy Primary Care Provider: Bernardino Flor This is a 79-year-old male well-known to me the presents with marked decline in status with arm and leg function and has known cervical spinal stenosis with myelopathy and is here for surgical invention. Allergies Allergy/AdvReac Type Severity Reaction Status Date / Time amoxicillin [From Augmentin] AdvReac Intermediate Diarrhea Verified 10/01/24 08:33 clavulanic acid AdvReac Intermediate Diarrhea Verified 10/01/24 08:33 [From Augmentin] Home Medications Medication Instructions Recorded Confirmed Type multivitamin 1 tab PO QAM 11/06/18 10/01/24 History amoxicillin 500 mg capsule 2,000 mg PO .COMPLEX 05/16/19 10/01/24 History aspirin 81 mg tablet,delayed 81 mg PO DAILY 07/07/20 10/01/24 History release atorvastatin 10 mg tablet 10 mg PO QPM #90 tabs 09/08/22 10/01/24 Rx gabapentin 300 mg capsule 300 mg PO TID 02/28/23 10/01/24 History denosumab 60 mg/mL subcutaneous 60 mg subcut .Q6MO 08/18/23 10/01/24 History syringe (Prolia) metoprolol succinate 25 mg 25 mg PO QAM #90 tabs 10/20/23 10/01/24 Rx tablet,extended release 24 hr cholecalciferol (vitamin D3) 25 25 mcg PO DAILY 08/08/24 10/01/24 History mcg (1,000 unit) capsule furosemide 20 mg tablet 20 mg PO QAM PRN edema 09/17/24 10/01/24 History acetaminophen 500 mg tablet 500 mg PO Q6H PRN Pain 10/01/24 10/01/24 History Past Med/Surg History Problem List (Updated 10/01/24 @ 09:30 by Royal Bah DO) Myelopathy concurrent with and due to spinal stenosis of cervical region History of heart valve replacement mitral valve replacement - CHARLES 01/13/2017 Edema ERICKA positive Bilateral hand pain Osteoporosis Postoperative atrial fibrillation Peroneal nerve palsy Osteoarthritis of right knee BPH loc w urin obs/LUTS Iron deficiency anemia Encounter for pre-operative examination Nasal polyposis Hydronephrosis (Acute) Mitral valve prolapse (Chronic) Medical History History of shingles (~2021) Hx of hydronephrosis Lumbar stenosis Peroneal nerve palsy Osteoporosis ERICKA positive Chronic back pain Acid reflux Edema History of bacterial endocarditis (~1989) Anemia Hiatal hernia Basal cell carcinoma Osteoarthritis History of kidney stones BPH (benign prostatic hyperplasia) Hx of atrial fibrillation, no current medication Surgical History History of heart valve replacement Status post total knee replacement, right Status post ligation of left atrial appendage Hx of sinus surgery History of transesophageal echocardiography ([facility]) History of ear, nose, and throat (ENT) surgery History of colonoscopy History of endoscopy Hx of shoulder surgery Hx of hernia repair History of back surgery History of extraction of renal calculus History of cardioversion History of cardiac cath Family History Father Family history of bladder cancer Social History Smoking Status: Former smoker Tobacco Type: Cigarettes Smoking End Date: QUIT in 1989; Second Hand Exposure: No; Do You Dip or Chew Tobacco: No; Tobacco Cessation Education Requested by Patient: No Hx Alcohol Use: No Hx Substance Use: No Preferred Language: [place] Citizen Communication Ability: Effective Visual Impairment: No Limitations Trimming Department Blocker Required: No Beliefs That Will Affect Care: None marital status: Current Living Situation: Spouse Other Information That Helps Us Care for You: No Feels Safe at Home: Yes Safety Concerns: Feels Safe At This Time Assistive Devices: Cane, Walker and Other Assistive Devices Comment: rollator Physical Exam Physical Exam: Patient is alert and oriented Heart regular in rhythm Lungs clear Results & Data Results & Data Vital Signs (Past 12 Hours) Vital Signs Temp Pulse Resp BP Pulse Ox O2 Del Method 10/01/24 08:40 36.5 C 72 20 134/69 97 Room Air
[2024-10-01] MEDS ORDERED: ONDANSETRON INJ 2 MG/ML 2 ML VIAL IV PRN (09:38)
[2024-10-01] MEDS ORDERED: ATROPINE SULFATE 0.1 MG/ML 10ML SYR IV PRN (09:38)
[2024-10-01] MEDS ORDERED: HYDROmorphone INJ 1 MG/ML SYRINGE IV PRN (09:38)
[2024-10-01] MEDS ORDERED: fentaNYL citrate PF 100 MCG/2 ML VIAL IV PRN (09:38)
[2024-10-01] MEDS ORDERED: ePHEDrine sulfate 50 MG/ML AMP IV PRN (09:38)
[2024-10-01] MEDS: ceFAZolin 2000MG 2,000 MG/15 ML SYR IV SCH ×2 (10:07→18:34)
[2024-10-01] MEDS ORDERED: DEXAMETHASONE SOD INJ 4 MG/ML VIAL ONE (10:17)
[2024-10-01] MEDS ORDERED: HYDROmorphone INJ 2 MG/ML SYR/VIAL ONE (10:34)
[2024-10-01] MEDS ORDERED: SUGAMMADEX SODIUM 200 MG/2 ML VIAL IV ONE ×2 (10:45→11:54)
--- OUTSIDE RECORDS SUMMARY | 2024-10-01 11:40 | External Medical Summary | Continuity of Care Document ---
Author Name Unknown Organization [facility] [address] [facility] Address [address] [place], [place] [id number] Care Team Providers Care Agriscience Instructor Name Role Phone Bernardino Flor Primary Care Physician [phone] Encounter [facility] [id number] Date(s): 09/27/24 - 09/27/24 [facility] [address], [address] [place] [address] [phone] Discharge Disposition: Home or Self Care Attending Physician: MD Flor Dongsheng Referring Physician: MD Flor Dongsheng Encounter Type: Clinic Allergies, Adverse Reactions, Alerts Substance Criticality Severity Reaction Reaction Severity Status Augmentin Unable to assess criticality Moderate Nausea and vomiting severity Active Immunizations Given and Recorded Vaccine Date Status Refusal Reason influenza virus vaccine, inactivated 03/06/24 Give n influenza virus vaccine, inactivated 03/10/23 Give n influenza virus vaccine, inactivated 06/01/22 Give n influenza virus vaccine, inactivated 04/13/21 Give n influenza virus vaccine, inactivated 04/08/20 Give n influenza virus vaccine, inactivated 04/26/19 Give n influenza virus vaccine, inactivated 05/23/18 Vick rded influenza virus vaccine, inactivated 06/19/17 Give n influenza virus vaccine, inactivated 01/21/16 Give n influenza virus vaccine, inactivated 03/24/15 Give n influenza virus vaccine, inactivated 02/13/14 Give n influenza virus vaccine, inactivated 04/25/13 Give n influenza virus vaccine, inactivated 02/18/12 Vick rded SARS-CoV-2 (COVID-19) mRNA BNT-162b2 vax 05/18/21 Recorded SARS-CoV-2 (COVID-19) mRNA BNT-162b2 vax 08/07/20 Recorded SARS-CoV-2 (COVID-19) mRNA BNT-162b2 vax 07/17/20 Recorded tetanus/diphtheria/pertuss, acel (Tdap) 04/08/20 G iven tetanus/diphtheria/pertuss, acel (Tdap) 08/11/07 R ecorded pneumococcal 13-valent vaccine 10/19/15 Given zoster vaccine live 02/10/12 Recorded pneumococcal 23-valent vaccine 07/04/11 Recorded tetanus toxoids-diphtheria, Td (Adult) 11/01/89 Re corded Not Given Vaccine Date Status Refusal Reason influenza virus vaccine, inactivated 02/18/17 Not Given Patient Refuses Medications Aspirin Enteric Coated 81 mg oral delayed release tablet Start: 07/13/21 1:10:00 PM EST, 1 tab, PO, Daily, Disp# 30 tab, other Start Date: 07/13/21 Stop Date: 08/12/21 Status: Ordered Quantity: 30.0 Unit: tab Repeat number: 1 atorvastatin 10 mg oral tablet Start: 10/17/23 11:50:00 AM EDT, 1 tab, PO, qhs, Disp# 90 tab, Refills: 3, Pharmacy: [id number] Start Date: 10/17/23 Status: Ordered Quantity: 90.0 Unit: tab Repeat number: 1 calcium carbonate 500 mg (200 mg elemental calcium) oral tablet, chewable Start: 09/13/24 11:52:00 AM EDT, 1 tab, PO, Daily, Disp# 100 tab, Adjust foods and suplennts to take elemental calcium 1.2 g/day, PRN: as needed for indigestion, other Start Date: 09/13/24 Status: Ordered Quantity: 100.0 Unit: tab Repeat number: 1 Centrum Silver Men's oral tablet Start: 10/12/12 2:44:00 PM EDT, 1 tab, PO, Daily Start Date: 10/12/12 Status: Ordered Repeat number: 1 ferrous sulfate 325 mg (65 mg elemental iron) oral tablet Start: 11/06/19 11:15:00 AM EDT, 1 tab, PO, Daily Start Date: 11/06/19 Status: Ordered Repeat number: 1 gabapentin 100 mg oral capsule Start: 09/13/24 11:33:00 AM EDT, 1 cap, PO, tid, Disp# 90 cap, start after 2 weeks of 300mg TID dose,[id number] Start Date: 09/13/24 Status: Ordered Quantity: 90.0 Unit: cap Repeat number: 1 gabapentin 300 mg oral capsule Start: 09/06/24 12:44:00 PM EDT, 1 cap, PO, tid, Disp# 90 cap, [id number] Start Date: 09/06/24 Status: Ordered Quantity: 90.0 Unit: cap Repeat number: 1 Lasix 20 mg oral tablet Start: 09/13/24 11:41:00 AM EDT, 1 tab, PO, Daily, Disp# 30 tab, as needed for leg swelling, [id number] Start Date: 09/13/24 Status: Ordered Quantity: 30.0 Unit: tab Repeat number: 1 metoprolol succinate 25 mg oral tablet, extended release Start: 08/28/17 11:29:00 AM EDT, 1 tab, PO, Daily Start Date: 08/28/17 Status: Ordered Repeat number: 1 Prolia 60 mg/mL subcutaneous solution Start: 07/13/21 12:57:00 PM EST, 60 mg =, subQ, [id number], q 6 months Start Date: 07/13/21 Status: Ordered Repeat number: 1 Tylenol 8 HR Arthritis Pain 650 mg oral tablet, extended release Start: 08/14/24 10:13:00 AM EDT, 1 tab, PO, q8h, PRN: breakthrough pain Start Date: 08/14/24 Status: Ordered Repeat number: 1 Vitamin D3 Start: 03/10/23 2:43:00 PM EDT, 1,250 mcg =, PO, Daily Start Date: 03/10/23 Status: Ordered Repeat number: 1 Problem List Condition Confirmation Course Effective Dates Status H ealth Status Informant Anemia Confirmed Active Fusion of spine, thoracic region Confirmed Active ERICKA positive Confirmed Active A-fib Confirmed Active BPH (benign prostatic hyperplasia) Confirmed Active At risk for cardiovascular event. Confirmed Active CTS (carpal tunnel syndrome) Confirmed Active Chronic low back pain Confirmed Active Congenital cerebral cyst Confirmed Active Diverticulitis Confirmed Active Diverticulosis Confirmed Active DJD (degenerative joint disease) Confirmed Active Gastroenteritis Confirmed Active Status post mitral valve replacement with bioprosthetic valve Confirmed Active Hand joint pain Confirmed Active Heart murmur Confirmed Active History of kidney stones Confirmed Active S/P mitral valve replacement with porcine valve Confirmed Active Status post total right knee replacement Confirmed Active Elevated serum immunoglobulin free light chain level Confirmed Active Sacroiliitis 1 Confirmed Active Insomnia Confirmed Active Nephrolithiasis Confirmed Active Right knee pain Confirmed Active Left knee pain Confirmed Active Enlarged prostate Confirmed Active Secondary left ventricular dilation Confirmed Active Lipoma of lower back. Confirmed Active Mitral valve prolapse Confirmed Active Mitral regurgitation Confirmed Active Neck pain Confirmed Active Osteoarthritis Confirmed Active Right knee DJD Confirmed Active Osteoporosis Confirmed Active Polyarthritis Confirmed Active Weak urine stream Confirmed Active Right sided sciatica Confirmed Active Spinal stenosis of lumbar region Confirmed Active Neural foraminal stenosis of cervical spine Confirmed Active Leg swelling Confirmed Active Weight disorder Confirmed Active [facility] Procedures Procedure Date Related Diagnosis Body Site Status Cervical spine X-ray 1 09/30/22 Co mpleted Plain X-ray of left hand 2 09/30/22 Completed X-ray of thoracic spine 3 09/30/22 Completed Plain X-ray of right hand 4 04/13/21 Completed Total knee arthroplasty 5 11/28/19 Completed ECG 6 11/06/19 Completed DXA scan T score 7 07/01/19 Comple francesca Colonoscopy 8 05/22/19 Completed Chest X-ray 9 10/17/[address] of abdomen and pelvis 10 10/17/17 Completed Venous doppler ultrasonography 11 10/17/17 Completed Spinal fusion 12, 13 09/28/[address] of abdomen and pelvis 14, 15 09/12/17 Completed DEXA - Dual energy X-ray bogdan ton absorptiometry 16 09/04/17 Completed Electrical cardioversion 17 05/04/17 Completed Chest angiography 18 02/17/17 Comp leted right foot 3 views 19 01/31/17 Com pleted Venous doppler ultrasonograp hy right lower extremity 20 01/31/17 Completed MVR - Mitral valve replacement 01/13/17 Completed ALONA procedure 21 12/28/16 Complete d Coronary angiography 22 12/15/16 C ompleted Excision biopsy 23 03/22/16 Comple francesca Plain X-ray of toes abnormal 24 09/24/15 Completed Shave biopsy and cauterizati on of skin 25 09/15/15 Completed Left Shoulder Rotator Cuff Repair 26 07/06/15 Completed MRI of lumbar spine 27 06/05/15 Co mpleted Hemilaminectomy decompressio n hemilaminotomies L3-4 and L4-5. 2013 Completed Colonoscopy 29 11/22/11 Completed XR Abdomen 30 10/06/11 Completed EKG 31 08/29/11 Completed Transthoracic Echocardiography 32 07/19/11 Completed XR Right Knee 33 04/04/10 Complete d MRI Lumbar Spine with and wi thout contrast 34 05/19/06 Completed XR Lumbar Spine 35 05/06/06 Comple francesca XR Right Thumb 36 05/06/06 Complet ed Hernia Repair 05/02/05 Completed XR Left Clavicle 12/16/02 Complete d XR: Clavicle, Pelvis, and ti rocco and fibula 37 04/23/02 Completed ECG 38 05/03/01 Completed Tonsillectomy and adenoidectomy 1951 Completed Back 39 Completed Knee 40 Completed Lithotripsy Completed 1IMPRESSION: 1. No fractures within the cervical spine. 2. The C4-C5 vertebral bodies are fused. 3. Severe disc space narrowing and moderate to severe facet osteoarthritis throughout the majority of the cervical spine. 4. Mild reversal of the normal lordotic curvature likely due to the advanced degenerative changes. 2IMPRESSION: 1. No acute fracture or dislocation within the left hand. 2. Severe osteoarthritis, possibly erosive, of the left fifth PIP joint. 3. Moderate osteoarthritis of the left first carpometacarpal joint. 3IMPRESSION: 1. No acute fracture or subluxation identified. 2. Partially imaged thoracolumbar spinal fusion hardware. The T12 pedicle screws are again noted extending into the T11-T12 disc space and there are findings compatible with T12 screw loosening. 3. Severe intervertebral disc space narrowing at T10-T11 and T11-T12 is unchanged. 4impression: 1. No acute fracture of dislocation within the right hand 2. Severe osteoarthritis of the right first carpetacarpel joint. Moderate osteoarthritis of the radiocarpal articulation and multiple interphangeal joints of the right hand 5Right 6Sinus bradycardia Early polarization Otherwise normal ECG 71. Femur neck L is 0.684 g/cm2 w/ T-score of -3.0 2. Femur neck R is 0.712 g/cm2 w/ T-score of -2.8 3. Femur total L is 0.722 g/cm2 w/ 0.722 g/cm2 w/ T-score of -2.6 4. Femur total R is 0.735 g/cm2 w/ T-score of -2.5 5. Forearm radius 33% is 0.719 g/cm2 w/ T-score of -1.0 6. Z-score of -1.8 8Impression: - Diverticulosis in the entire examined colon. - Non-bleeding internal hemorrhoids. - No specimens collected. 9No acute cardiopulmonary disease 10duplicated left renal collecting system with residual periureteral fat stranding and mild left urothelial thickening likely from interval passage of the previously noted 6-7 mm lower pole moiety leftureteral calculus. nonobstructing punctate left renal calculus interval extension of posterior lumbar fusion hadware, which now spans from T12 to S1 with laminectomy defect at L2 11normal study 121- Removal of posterior segmental instrumentation L3-S1. 2- expiration of fuslion L3-S1. 3 -lumbar decompression medial facetctomies foraminotomies L1-L2. 4 - posterior spinal fusion T12-L4. 5 -placed a posterior segmental instrumentionat T12-S1. 6 - interbody fusion L2-3. 7 - placement of titaniumcage 11 x 26 mm at L2-3. 8- placement of locally harvested autograft in the posterior lateral gutters. 9 - placement InFUSE collagen sponge, mass graft in the posterior gutters and ostial amp bone graft in the interbody space. 13Revision decopression, medial facetectomies & forarminotomy L3-L4, L4-L5, L5- S1. Posterior spinal fusion L3-L4, L4-L5, L5-S1. Placement posterior segmental instrumentation using Medicrea rods & screws L3-L4, L4-L5, L5-S1. Interbody fusion L4-L5. Placement of PEEK cage [id number] at Lf-L5. Placement of locally harvested morcellized autograft in posterior gutters. Placement onf infuse collagensponge combined with Mastergraft in posterior gutters & Amaya bone graft in the interbody space. 14findings suggest sacral decubitus ulcer and possible bilateral ischial decubitus ulcers. 151. There is a 7 mm obstructing calculus in the left proximal ureter. This causes mild left-sided hydronephrosis. 2. There is an additional nonobstructing left renal calculus. No renal calculi are clearly identified on this contrast-enhanced examination. 3. There is duplication of the left renal collecting system and at least partial dupilcation of theleft proximal ureter. 4. Moderate colonic fecal retention. No bowel obstruction is seen. 5. Moderate sigmoid diverticulosis without CT evidence of acute diverticulitis. 6. Cardiomegaly and hiatal hernia. 7. Prostatomegaly. 8. There is lucency around the interpedicular screws at S1 suggesting lossening. Clinica correlation will be required. 9. Additional findings as above. 16Tscore of : left femur neck is -2.9, right femur neck -3.3, right forearm radius -1.5. Zscore of -2.0, which is very low for age & sec. Causes of secondary bone loss should be investigated. 17Synchronized biphasic shock was delivered using 100 J with conversion to a sinus rhythm. 18Impression: 1. No acute aortic pathology or evidence of pulmonary thromboembolic disease. 2. Prior median sternotomy with placement of prosthetic mitral valve. 3. Small left pleural effusion with subsegmental left basilar consolidation suggesting compressive atelectasis or pneumonia. Mild layering secretions are present within the esophagus and bronchus intermedius with associated bronchial wall thickening which raises the possibility of aspiration. 4. Nonobstructing calculi of the superior pole left kidney incidentally noted. 5. Right is acromiale. 19Impression: No acute osseous injury 20Impression: Normal study. see report 21Normal LV size and function. LVEF 60-65%. No regional wall motion abnormalities. Normal RV size & function. Severe mitral valve prolapse/partial flair leaflet (P1/P2 segment). Severe eccentric mitral regurgitation with systolic flow reversal in right lower pulmonary vein. No LA appendage thrombus. No significant aortic pathology. 22Left & right. Normal coronary arteries. Normal intracardiac filling pressure. Normal pulmonary arter pressures. 23right forehead 24Moderate osteparthritis at the first MTP joint 25Right lateral forehead 26right shoulder complete tear of right rotator cuff 27Severe multivertebra disc degeneration and facet osteoarthritis Multilevel central canal stenosis, moderate at L2-3 and L3-4 Multilevel foraminal stenosis, severe bilaterally at L4-5 (right greater yhan left) and severe on the left L3-4 28decompression hemilaminotomies L3-4 and L4-5. 29Repeat colonoscopy in 10 years for screening purposes Diverticulosis in the sigmoid colon and in the descending colon 30[facility] 31[facility] 32[facility] 33[facility] [id number] [facility] 37[facility] 38[facility]G 39Lumbar spine 40right knee replacement 2020 Results Radiology Reports * Exam Date Time Procedure Performing Provider Status 09/27/24 1:33 PM VL Venous Reflux Lower Ext Complete Final Notes: (VL Venous Reflux Lower Ext Complete) Reason For Exam: leg swelling VL Venous Reflux Lower Ext Complete [facility] FINAL REPORT Name: ALBERT LE : 1945 Visit: [id number] Date: 27 Sep 2024 TYPE OF TEST: Peripheral Venous Testing REASON FOR TEST Edema INTERPRETATION/FINDINGS Venous duplex imaging performed of the bilateral lower extremities: 1. No evidence of deep or superficial venous thrombosis identified in the bilateral common femoral, femoral, deep femoral, popliteal, posterior tibial, peroneal, great saphenous, small saphenous or anterior accessory saphenous veins. 2. No evidence of deep or superficial vein incompetence identified in the bilateral common femoral, mid femoral, popliteal, great saphenous, small saphenous or anterior accessory saphenous veins. Normal study. No prior exam available for comparison. IMPRESSION/COMMENTS I have personally reviewed the data relevant to the interpretation of this study. TECHNOLOGIST: Rosa AJ, RD, T PHYSICIAN: Bernabe Rogers MD Signed: 09/27/2024 07:21 PM Final Dictated by:MD Rogers John F Dictated DT/TM:09/27/2024 7:21 Signed by:MD Rogers John F Signed (Electronic Signature):09/27/2024 7:21 p Transcribed by:DOMITILA Social History Social History Type Response Tobacco Former smoker, Pipe, Started age 20 Years. Stopped age 46 Years. Smoking Status Never smoked cigaret saira Sex Male Sex Representation Male (finding) Patient Care team information Care Team Personnel Name: MD Flor Dongsheng Position: Physician - Family Med Member Role: Primary Care Provider Address: [address] [place] [address] Telecom: [phone] Care Team Related Persons Name: BERNARDO LE Name: HUSSEIN LE Insurance Providers Guarantor name: ALBERT Michael LE Health Plan Information #: 1 Payer: [employer] Member Number: [id number] Policy Number: NA Group Number: [id number] Payer Identifier: [id number] Health Plan Information #: 2 Payer: [employer] Member Number: [id number] Policy Number: NA Group Number: [id number] Payer Identifier: [id number]
[2024-10-01] MEDS ORDERED: ePHEDrine sulfate 50 MG/ML AMP ONE (11:54)
[2024-10-01] MEDS: BUPIVACAINE/EPINEPHRINE 0.25% 1:200,000 30 ML VIAL ONE (12:51)
[2024-10-01] MEDS: BACITRACIN OINT 14 GM TUBE ONE (12:52)
[2024-10-01] MEDS: ceFAZolin 330 MG/ML 1 GM VIAL ONE ×2 (12:52)
--- NOTE | 2024-10-01 12:52 | Operative Report ---
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 #2 posterior spinal fusion C5-T3. #3 placement posterior instrumentation using globus C5-T3. #4 placement of infuse collagen sponge bath Koros in the posterolateral gutters. Surgeon Royal aBh, Directory Carrier Cookie López Estimated Blood Loss 800 Findings Consistent with Post-Op Diagnosis Specimens None Indications This is a 79-year-old male presents publish diagnosis of failing course of nonoperative care is here for surgical invention. Description of Procedure Patient was met with identified informed consent obtained. Patient was then taken to the operative suite underwent to the patient placed in a prone position on the chest pad and hip bolsters with a 3 prong [employer]. All bony prominences well-padded eyes inspected to ensure no external precipice upon them. This point the thoracolumbar spine was prepped and draped in sterile fashion. Sharp dissection with the assistance of bipolar electrocautery was performed down to and exposing posterior cervical spine from C5-T3. I then performed complete laminectomies of - C5 C6 C7-T1 and T2. Lateral mass screws were then placed in C5 and C6 bilaterally with the assistance of fluoroscopy. This included pedicle screws placed on the left at T1 1 T2 and T3 and T2-T3 on the right. The proper size ella was then contoured and locked in position. Lateral masses and transverse processes of C5-C6-C7 T1-T2 and T3 were then burred to subcortical waiting bone. Infuse collagen sponge, with Koros was placed in the posterior gutters. 15 round LEO drain inserted. The incision was then closed with 1 Vicryl fascia 2-0 Vicryl subcutaneously and 4 Monocryl for final skin closure. Steri-Strips sterile dressing placed. Patient waken taken PACU stable condition. Please note Cookie López was present out the entire procedure about the patient positioning complex portion of the surgery and final skin closure. Spinal cord monitoring was utilized at the procedure no changes noted. Im ordering 10 grams of Collagen Powder ([facility] A6010 Primary Dressing) and 10 bordered super absorbent ([facility] A6196 Secondary Dressing) to treat an incision wound that was caused by a spine procedure. The incision is approximately 2 cm(W) x 2 cm(L) down to the spinal column and epidural space 2 cm (D) in size and is a full thickness wound showing no signs of infection. Collagen comes in 1 gram packets so 10 packets were ordered. Given the size of the wound, with moderate exudate I chose to order a 10 day supply. The patient will be provided instructions for proper application of the collagen wound kit. The patient will be asked to apply the collagen powder daily and then cover it with sterile dressings dispensed. Collagen was selected as I expect the collagen to attract monocytes and fibroblasts, act as a sacrificial substrate for MMPs, and ultimately proved a matrix for tissue and vessel growth. The collagen will act as a primary dressing in this scenario. It is medically necessary for proper healing of these wounds to improve bioavailability and contact with each wound surface, this is also to help prevent infection of wo unds and promote healing ultimately leading to a better healing outcome and limit the risk of infection. I attest to the content of the Intraoperative Record and any orders documented therein. Any exceptions are noted below.
[2024-10-01] MEDS: FLOSEAL HEMOSTATIC MATRIX 10ML TOP ONE (12:53)
--- NOTE | 2024-10-01 13:51 | Fluoroscopy Report ---
FL cervical 2-3V CLINICAL HISTORY: C5-T3 POSTERIOR FUSION COMPARISON STUDY: 09/30/2022 FLUOROSCOPY TIME: 70 seconds FLUOROSCOPY IMAGES: 4 EXPOSURE DOSE: 65 mGy FINDINGS: Fluoroscopy was provided for instrumented fusion from the lower cervical to upper thoracic spine. IMPRESSION: Intraoperative fluoroscopy. ACT 112: Negative or not required by law. Electronically signed by: Alton Pereira M.D. 10/01/2024 1:50 PM
--- NOTE | 2024-10-01 14:25 | Anesthesiology Progress Note ---
Date of Service October 01, 2024 Anesthesia Post Procedure Vital Signs Vital Signs: Temp Pulse Pulse Resp BP BP Pulse Ox 10/01/24 14:15 73 18 113/65 97 10/01/24 14:05 74 18 119/77 98 10/01/24 13:55 76 17 117/71 100 10/01/24 13:45 76 17 104/71 100 10/01/24 13:35 78 15 116/60 99 10/01/24 13:25 78 17 116/70 99 10/01/24 13:16 97.0 F L 83 16 99/60 L 100 10/01/24 08:40 97.7 F 72 20 134/69 97 O2 Del Method O2 Flow Rate 10/01/24 14:15 Nasal Cannula 2 10/01/24 14:05 Nasal Cannula 2 10/01/24 13:55 Oxymask 3 10/01/24 13:45 Oxymask 7 10/01/24 13:35 Oxymask 13 10/01/24 13:25 Oxymask 13 10/01/24 13:16 Oxymask 13 10/01/24 08:40 Room Air Pain Intensity Lower Back: Pain Intensity: 2 Transfer of Care Handoff Completed per policy Notes Mental Status: alert / awake / arousable and participated in evaluation Patient Amnestic to Procedure: Yes Nausea / Vomiting: adequately controlled Pain: adequately controlled Airway Patency, RR, SpO2: stable & adequate BP & HR: stable & adequate Hydration State: stable & adequate Anesthetic Complications: no major complications apparent and Pt Satisfied with anesthetic care
[2024-10-01] MEDS ORDERED: bisacodyL 10 MG SUPP PR PRN (14:57)
[2024-10-01] MEDS ORDERED: DO NOT ADMINISTER FLU VACCINE PRN (14:57)
[2024-10-01] MEDS ORDERED: METOCLOPRAMIDE HCL INJ 5 MG/ML 2 ML VIAL IV PRN (14:57)
[2024-10-01] MEDS ORDERED: DO NOT ADMINISTER PNEUMOCOCCAL VACCINE PRN (14:57)
[2024-10-01] MEDS ORDERED: ALUMINUM/MAGNESIUM SUSP 30 ML UDC PO PRN (14:57)
[2024-10-01] MEDS ORDERED: PROMETHAZINE 12.5 MG/50.5 ML BAG IV PRN (14:57)
[2024-10-01] MEDS ORDERED: hydrOXYzine HCl 25 MG TAB PO PRN (14:57)
[2024-10-01] MEDS ORDERED: FUROSEMIDE 20 MG TAB PO PRN (14:57)
[2024-10-01] MEDS ORDERED: RACEPINEPHRINE 2.25% NEBU SOLN 0.5 ML VIAL INH PRN (14:57)
[2024-10-01] MEDS ORDERED: SOD PHOSPHATE/SOD BIPHOSPHATE ENEMA 132 ML BTL PR PRN (14:57)
[2024-10-01] MEDS ORDERED: dexAMETHasone 8 MG in SYRINGE 0 ML IV PRN (14:57)
[2024-10-01] MEDS ORDERED: FAMOTIDINE 20 MG TAB PO PRN (14:57)
[2024-10-01] MEDS ORDERED: NALOXONE HCL 0.4 MG/1 ML VIAL/CARP IV PRN (14:57)
[2024-10-01] MEDS ORDERED: ONDANSETRON 4 MG OD TAB PO PRN (14:57)
[2024-10-01] MEDS ORDERED: ACETAMINOPHEN 1,000 MG/100 ML VIAL IV PRN (14:57)
[2024-10-01] MEDS ORDERED: LORazepam 2 MG/1 ML VIAL IV PRN (14:57)
[2024-10-01] MEDS ORDERED: MAGNESIUM HYDROXIDE SUSP 30 ML UDC PO PRN (14:57)
[2024-10-01] MEDS: GABAPENTIN 300 MG CAP PO SCH ×2 (14:59→15:56)
[2024-10-01] MEDS: ACETAMINOPHEN 500 MG TAB PO SCH (14:59)
[2024-10-01] MEDS: ACETAMINOPHEN 500 MG TAB PO PRN (15:35)
--- NOTE | 2024-10-01 15:50 | Hospitalist Consultation ---
"Date of Consultation October 01, 2024 Assessment & Plan (1) History of heart valve replacement: (2) Mitral valve prolapse: (3) Myelopathy concurrent with and due to spinal stenosis of cervical region: Plan Carlos is a 79M with a PMhx of afib, MVP s/p replacement, BPH, and cervical stenosis who present to the hospital for elective back surgery with Dr. Bah. Hospital medicine is consulted for medical management #Afib /MVP/ Mitral Valve Replacement Continue metoprolol and statin Resume ASA when okayed by Dr. Bah - recommended to resume MELYSSA by ortho pre- op clearance Hold lasix #Cervical Stenosis S/p C5-T3 Posterior Cervical Decompression and Fusion with Dr. Bah 10/01 Pain control | DVT proh | abx | Dispo per primary team Monitor AM Labs Thank you for allowing us to participate in the care of this patient, please reach out with any questions or concerns. Hospital medicine will continue to follow. History of Present Illness Reason for Consultation: medical management Requesting Physician: Dr. Bah Attending Physician: Royal Bah, DO History of Present Illness Carlos is a 79M with a PMhx of afib, MVP s/p replacement, BPH, and cervical stenosis who present to the hospital for elective back surgery with Dr. Bah. Patient seen post operatively in room 319. Starting to get pain across his shoulders. Has not had appetite yet since OR. Confirms no anticoagulation for valve replacement, just baby aspirin Allergies Allergy/AdvReac Type Severity Reaction Status Date / Time amoxicillin [From Augmentin] AdvReac Intermediate Diarrhea Verified 10/01/24 08:33 clavulanic acid AdvReac Intermediate Diarrhea Verified 10/01/24 08:33 [From Augmentin] Home Medications Medication Instructions Recorded Confirmed Type multivitamin 1 tab PO QAM 11/06/18 10/01/24 History amoxicillin 500 mg capsule 2,000 mg PO .COMPLEX 05/16/19 10/01/24 History aspirin 81 mg tablet,delayed 81 mg PO DAILY 07/07/20 10/01/24 History release atorvastatin 10 mg tablet 10 mg PO QPM #90 tabs 09/08/22 10/01/24 Rx gabapentin 300 mg capsule 300 mg PO TID 02/28/23 10/01/24 History denosumab 60 mg/mL subcutaneous 60 mg subcut .Q6MO 08/18/23 10/01/24 History syringe (Prolia) metoprolol succinate 25 mg 25 mg PO QAM #90 tabs 10/20/23 10/01/24 Rx tablet,extended release 24 hr cholecalciferol (vitamin D3) 25 25 mcg PO DAILY 08/08/24 10/01/24 History mcg (1,000 unit) capsule furosemide 20 mg tablet 20 mg PO QAM PRN edema 09/17/24 10/01/24 History acetaminophen 500 mg tablet 500 mg PO Q6H PRN Pain 10/01/24 10/01/24 History Patient History Medical History History of shingles (~2021) Hx of hydronephrosis Lumbar stenosis Peroneal nerve palsy Osteoporosis ERICKA positive Chronic back pain Acid reflux Edema History of bacterial endocarditis (~1989) Anemia Hiatal hernia Basal cell carcinoma Osteoarthritis History of kidney stones BPH (benign prostatic hyperplasia) Hx of atrial fibrillation, no current medication Surgical History History of heart valve replacement Status post total knee replacement, right Status post ligation of left atrial appendage Hx of sinus surgery History of transesophageal echocardiography (ALONA) History of ear, nose, and throat (ENT) surgery History of colonoscopy History of endoscopy Hx of shoulder surgery Hx of hernia repair History of back surgery History of extraction of renal calculus History of cardioversion History of cardiac cath Family History Father Family history of bladder cancer Social History Smoking Status: Former smoker Tobacco Type: Cigarettes Smoking End Date: QUIT in 1989; Second Hand Exposure: No; Do You Dip or Chew Tobacco: No; Tobacco Cessation Education Requested by Patient: No Hx Alcohol Use: No Hx Substance Use: No Preferred Language: Andorran Communication Ability: Effective Visual Impairment: No Limitations [employer] Manager Required: No Beliefs That Will Affect Care: None marital status: Current Living Situation: Spouse Other Information That Helps Us Care for You: No Feels Safe at Home: Yes Safety Concerns: Feels Safe At This Time Assistive Devices: Cane, Walker and Other Assistive Devices Comment: rollator Review of Systems Review of Systems: All systems reviewed & are unremarkable except as noted in Subjective Physical Exam Physical Exam: General: NAD, VS as above HEENT: neck brace in place, no stridor, handeling secretions without issue Resp: normal respiratory effort, lungs clear to auscultation CV: RRR, + murmur, Extremities: Moves all extremities, SCDs in place Neuro: A&O x3, Skin: intact, no lesions noted Results & Data Results & Data Vital Signs (Past 12 Hours) Vital Signs Temp Pulse Pulse Pulse Resp BP BP 10/01/24 15:30 80 16 10/01/24 15:20 97.7 F 61 18 106/63 10/01/24 14:50 97.5 F L 71 18 113/67 10/01/24 14:35 97.3 F L 75 20 112/58 L 10/01/24 14:25 70 21 113/66 10/01/24 14:15 73 18 113/65 10/01/24 14:05 74 18 119/77 10/01/24 13:55 76 17 117/71 10/01/24 13:45 76 17 104/71 10/01/24 13:35 78 15 116/60 10/01/24 13:25 78 17 116/70 10/01/24 13:16 97.0 F L 83 16 99/60 L 10/01/24 08:40 97.7 F 72 20 134/69 Pulse Ox O2 Del Method O2 Flow Rate 10/01/24 15:30 98 Nasal Cannula 2 10/01/24 15:20 99 Nasal Cannula 2 10/01/24 14:50 92 Nasal Cannula 2 10/01/24 14:35 99 Nasal Cannula 2 10/01/24 14:25 99 Nasal Cannula 2 10/01/24 14:15 97 Nasal Cannula 2 10/01/24 14:05 98 Nasal Cannula 2 10/01/24 13:55 100 Oxymask 3 10/01/24 13:45 100 Oxymask 7 10/01/24 13:35 99 Oxymask 13 10/01/24 13:25 99 Oxymask 13 10/01/24 13:16 100 Oxymask 13 10/01/24 08:40 97 Room Air PG Care Time/CCT Total # of Minutes Spent Total Time Spent with Patient: Total time spent is greater than 50% in coordination of care (as documented) at patient's floor/unit and/or counseling patient: Coding Level of Care Code 86036 IN/OBS CONSULT LVL 3,45M Diagnoses History of heart valve replacement Z95.2 Mitral valve prolapse I34.1 Myelopathy concurrent with and due to spinal stenosis of cervical region M48.02; G99.2"
[2024-10-01] MEDS: dexAMETHasone 6 MG in SYRINGE 0 ML IV SCH (15:56)
[2024-10-01] MEDS: HYDROmorphone INJ 1 MG/ML SYRINGE IV PRN (16:50)
[2024-10-01] MEDS: HYDROmorphone INJ 0.5 MG/0.5 ML SYR IV PRN (20:25)
[2024-10-01] MEDS: ATORVASTATIN 10 MG TAB PO SCH (20:26)
[2024-10-01] MEDS: DOCUSATE SODIUM/SENNA 50/8.6MG TAB PO SCH (20:37)
[2024-10-01] MEDS: ONDANSETRON INJ 2 MG/ML 2 ML VIAL IV PRN (22:00)
[2024-10-02] MEDS: POLYETHYLENE (MIRALAX) 17 GM PACK PO SCH (06:09)
[2024-10-02 07:08] LABS: Basophils # (auto) 0.02 K/uL (0.00-0.20); Basophils % (auto) 0.1 %; Hemoglobin 10.3 g/dl (14.0-18.0); Immature Granulocytes # (auto) 0.09 K/uL (0.01-0.20); Immature Granulocytes % (auto) 0.5 %; Lymphocytes # (auto) 1.24 K/uL (1.20-3.40); Lymphocytes % (auto) 7.4 %; Mean Corpuscular Hgb Conc 33.2 g/dL (32.0-36.0); Mean Corpuscular Volume 93.4 fL (80.0-100.0); Mean Platelet Volume 10.8 fL (9.4-12.4); Monocytes % (auto) 4.8 %; Neutrophils # (auto) 14.67 K/uL (1.40-6.50); Neutrophils % (auto) 87.2 %; Platelet Count 191 K/uL (130-400); RDW Standard Deviation 44.7 fL (36.4-46.3); Red Blood Count 3.32 M/uL (4.70-6.10); White Blood Count 16.82 K/ul (4.8-10.8)
[2024-10-02 07:29] LABS: BUN Creatinine Ratio 28.6 (10-20); Calcium 9.1 mg/dl (8.6-10.3); Potassium 4.6 mmol/L (3.5-5.1)
--- NOTE | 2024-10-02 09:11 | Orthopedic Progress Note ---
Date of Service October 02, 2024 Assessment & Plan (1) Myelopathy concurrent with and due to spinal stenosis of cervical region: Plan: At this time we will continue physical therapy monitor his LEO output hopefully discharge home in the next few days. I will maintain antibiotics for the duration of his drain placement. Admission and Anticipated Discharge Date Admission Date: October 01, 2024 Subjective Pain is controlled. He feels his arm numbness has improved. He is ambulating well. Physical Exam Physical Exam: Patient is in the chair at the bedside. He has good strength testing upper extremities. Sensory is intact. Results & Data Vital Signs (Past 12 Hours) Vital Signs Temp Pulse Pulse Pulse Resp BP Pulse Ox 10/02/24 07:31 20 91 10/02/24 07:28 36.7 C 70 16 125/60 95 10/02/24 03:11 76 16 109/59 L 94 10/02/24 02:13 74 15 92 10/02/24 01:27 36.5 C 78 16 115/60 96 10/01/24 22:15 73 18 94 O2 Del Method 10/02/24 07:31 Room Air 10/02/24 07:28 Room Air 10/02/24 03:11 Room Air 10/02/24 02:13 Room Air 10/02/24 01:27 Room Air 10/01/24 22:15 Room Air
[2024-10-02] MEDS: CHOLECALCIFEROL 25 MCG (1000 UNITS) TAB PO SCH (09:48)
[2024-10-02] MEDS: METOPROLOL SUCC 25MG EXT REL TAB PO SCH (09:48)
[2024-10-02] MEDS: ASPIRIN 81 MG ECTAB PO SCH (09:48)
[2024-10-02] MEDS: MULTIVITAMIN TAB PO SCH (09:48)
--- NOTE | 2024-10-02 09:51 | Hospitalist Progress Note ---
"Date of Service October 02, 2024 Assessment & Plan (1) History of heart valve replacement: (2) Mitral valve prolapse: (3) Myelopathy concurrent with and due to spinal stenosis of cervical region: Aliya Gonzalez is a 79M with a PMhx of afib, MVP s/p replacement, BPH, and cervical stenosis who present to the hospital for elective back surgery with Dr. Bah. Hospital medicine is consulted for medical management #Afib /MVP/ Mitral Valve Replacement Continue metoprolol and statin Resume ASA when okayed by Dr. Bah - recommended to resume MELYSSA by ortho pre- op clearance Okay to resume prn lasix at discharge #Cervical Stenosis S/p C5-T3 Posterior Cervical Decompression and Fusion with Dr. Bah 10/01 Pain control | DVT proh | abx | Dispo per primary team Leukocytosis likely reactive from steroids. Hgb 10.3 was 12.1 preop - acute on chronic anemia - acute blood loss vs dilutional Dispo: medically stable Thank you for allowing us to participate in the care of this patient, please reach out with any questions or concerns. Hospital medicine will sign off. Admission and Anticipated Discharge Date Admission Date: October 01, 2024 Subjective doing well, passing gas worked with PT without issues no issues breathing appetite has improved Review of Systems Review of Systems: All systems reviewed & are unremarkable except as noted in Subjective Physical Exam 2 Physical Exam: General: NAD, vitals as above, sitting up in the chair Pulm: breathing unlabored CV: well perfused extremities: moves all extremities Results & Data Results & Data Vital Signs (Past 12 Hours) Vital Signs Temp Pulse Pulse Pulse Resp BP Pulse Ox 10/02/24 08:50 99 10/02/24 07:31 20 91 10/02/24 07:28 98.1 F 70 16 125/60 95 10/02/24 03:11 76 16 109/59 L 94 10/02/24 02:13 74 15 92 10/02/24 01:27 97.7 F 78 16 115/60 96 10/01/24 22:15 73 18 94 O2 Del Method 10/02/24 08:50 10/02/24 07:31 Room Air 10/02/24 07:28 Room Air 10/02/24 03:11 Room Air 10/02/24 02:13 Room Air 10/02/24 01:27 Room Air 10/01/24 22:15 Room Air Laboratory Results cbc and chemistry reviewed PG Care Time/CCT Total # of Minutes Spent Total Time Spent with Patient: Total time spent is greater than 50% in coordination of care (as documented) at patient's floor/unit and/or counseling patient: Coding Level of Care Code 23643 SUB INP/OBS CARE 2/35MIN Diagnoses History of heart valve replacement Z95.2 Mitral valve prolapse I34.1 Myelopathy concurrent with and due to spinal stenosis of cervical region M48.02; G99.2"
[2024-10-02] MEDS: ceFAZolin 2000MG 2,000 MG/15 ML SYR IV SCH (12:25)
[2024-10-03] MEDS: LORazepam 0.5 MG TAB PO PRN (03:04)
[2024-10-03] MEDS: oxyCODONE HCL IR 5 MG TAB (IMMEDIATE RELEASE) PO PRN (03:04)
--- NOTE | 2024-10-03 08:31 | Orthopedic Progress Note ---
Date of Service October 03, 2024 Assessment & Plan (1) Myelopathy concurrent with and due to spinal stenosis of cervical region: Plan: Carlos is postoperative day 2 status post posterior cervical fusion C5-T3. Will continue with physical therapy and ambulation today. Maintain LEO drain. Continue with pain control. Anticipate discharge home tomorrow Admission and Anticipated Discharge Date Admission Date: October 01, 2024 Subjective Carlos is postoperative day 2 status post posterior cervical fusion C5-T3. He is doing well. He states his pain and paresthesias as well as numbness in his hands and feet are improving. He is up and ambulatory upon his room. Yesterday in physical therapy ambulating over 200 feet. LEO drain output last shift is 40 cc. He is on antibiotics prophylactically until discharge Review of Systems Review of Systems: All systems reviewed & are unremarkable except as noted in HPI & below Physical Exam Physical Exam: He sitting in a chair eating breakfast in no acute distress alert and oriented x 3 Cervical collar intact Dressing is clean dry and intact with functioning LEO drain strength is intact upper and lower extremities Results & Data Vital Signs (Past 12 Hours) Vital Signs Temp Pulse Resp BP Pulse Ox O2 Del Method FiO2 10/03/24 07:37 64 17 96 Room Air 21 10/03/24 07:34 36.4 C L 66 16 136/64 99 Room Air 10/03/24 02:55 81 18 96 Room Air 10/02/24 22:20 90 18 96 Room Air
[2024-10-03] MEDS: traMADol HCL 50 MG TABLET PO PRN (17:17)
[2024-10-03] MEDS: diphenhydrAMINE Capsule 25 MG CAP PO PRN (20:10)
[2024-10-04 08:00] VITALS: RESP 18; TEMP 98.3; O2SAT 93
--- NOTE | 2024-10-04 09:03 | Discharge Summary ---
Date of Service October 04, 2024 Admission HPI Per Admitting Provider This is a 79-year-old male well-known to me the presents with marked decline in status with arm and leg function and has known cervical spinal stenosis with myelopathy and is here for surgical invention. Admission Exam (Per Admitting) Constitutional WD/WN, vitals as above Eyes normal visual dickinson by confrontation ENMT external ear and nose normal, oropharynx normal Neck normal visual inspection Respiratory normal respiratory effort Cardiovascular Extremities: normal capillary refill Gastrointestinal (Abdomen) normal bowel sounds, soft, nontender, no hepatosplenomegaly Musculoskeletal Spine: + pain with cervical ROM Extremities: extremities normal to inspection Skin no rashes, warm and dry Neurologic normal touch/pain/proprioception and moves all extremities Gait: + shuffling gait Psychiatric A+Ox3, euthymic affect Eye Contact: good eye contact Discharge Data Consultations 10/01/24 14:57 Consult Hospitalist Routine Procedures Performed Operation Date: 10/01/24 09:35 Actual Procedures p C5-T3 Posterior Cervical Decompression and Fusion, Spinal Cord Monitoring(Not Applicable) - Royal Bah DO Hospital Course (1) Myelopathy concurrent with and due to spinal stenosis of cervical region: Carlos is being discharged home on postoperative day 3 status post posterior cervical fusion C5-T3. He has had an uneventful hospital course. Upper and low er extremity paresthesias and numbness are improving. Balance is improving. No dysphagia. LEO drain output last shift was 30 cc. Yesterday in physical therapy Ambulatiing 210 feet. He has had a bowel movement. Discharge Instructions ACTIVITY RECOMMENDATIONS: SELF CARE INSTRUCTIONS AFTER CERVICAL FUSIONS 1. No smoking. Smoking drastically decreases the chance of a solid fusion. 2. No bending, lifting more than 5 pounds, or twisting (roll like a log when turning in bed). 3. You may shower 3 days after surgery. Thoroughly dry wound. Do not soak in the tub. 4. Cervical collar: Must be worn at all times including sleeping. You may remove the brace only to bath, eat and if you are sitting in a recliner. 5. Please walk as much as you can for exercise. Gradually increase the distance that you walk as your endurance increases. 6. You may return to previous diet. SPECIAL CARE INSTRUCTIONS: VERY IMPORTANT TO READ AND REVIEW A. Do not take any anti-inflammatory medications (i.e. Indocin, Advil, Aspirin, Naprosyn, Aleve, Motrin, etc.) as these may inhibit the chance of a solid fusion. Tylenol is okay to take. B. Your surgical incision has been closed with a cosmetic suture under the skin that will dissolve in about 6 weeks. In 14 days, you can use a pair of clean scissors and cut the suture that is left outside of the skin at the ends of your incision. C. Complications are uncommon, but please contact us if you have any signs or symptoms of: 1. wound infection (fever higher than 102.5 degrees F, redness, separation of wound, drainage, or increasing pain from the incision) 2. blood clots in legs (pain, swelling, redness and warmth in legs) 3. urinary tract infection (fever higher than 102.5 degrees, burning upon urination or increased frequency of urination) 4. nerve problems (inability to walk on your toes or heels, numbness, loss of bowel or bladder control) 5. any other symptoms that concern you. D. Please call the office at if you have any concerns or questions about your operation or recovery. MANAGING PAIN AFTER SPINAL SURGERY 1. Narcotic medication is intended for short-term use and will be provided for surgical pain. Surgical pain usually lasts for a period of 4-6 weeks. Narcotic medication includes Percocet, Vicodin, Darvocet, Tylenol #3 or Lortab. 2. Longer-term pain is more appropriately treated with non-narcotic medication such as Tylenol ES. 3. Muscle spasm is not appropriately treated with narcotics. Muscle relaxers such as Soma, Flexeril or Skelaxin can be used along with Tylenol ES. 4. Remember that we all live with some "aches and pains". This is not unusual or uncommon after an injury or as we get older. 5. We will provide appropriate medication within the normal guidelines of their prescribed use. We will also be very cautious and aware of potential abuse and extended duration of patients' medication needs. 6. Please allow 2-3 days to process refills. Prescriptions will not be mailed but must be picked up at the office. FOLLOW UP VISIT: Keep your scheduled follow-up appointment. Any questions, please call the office at .
[2024-10-04 12:54] VITALS: BP 146/87; PULSE 68
== END 2024-10-04 13:28 | disposition home health service (06) | DRG 448 ==
LOC: ASU 08:03 → 3E 12:56